=== PATIENT | male | born 1955 | race African-American/Black ===

== ENCOUNTER 2019-05-15 14:08 | Emergency (ER) | payer OTHER, SELFPAY ==
--- NOTE | ~2019-05-15 | XR_ITS ---
EXAMINATION: XR foot LT min 3V DATE: 05/15/2019 14:38 INDICATION: Left foot pain. TECHNIQUE: 4 views of left foot were obtained. COMPARISON: None. FINDINGS: There is mild hallux valgus. No fracture. There is mild osteoarthritis of first metatarsoph alangeal joint and some of the interphalangeal joints and midfoot joints. There are enthesophytes at the posterior and plantar aspects of calcaneal tuberosity. IMPRESSION: 1. Mild hallux valgus. 2. Mild polyarticular osteoarthritis. Reviewed, dictated and finalized at location [facility]. 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
[2019-05-15 14:16] VITALS: BP 135/73; PULSE 75; RESP 16; TEMP 36.5; O2SAT 98
--- NOTE | 2019-05-15 14:50 | ED.GENADULT ---
HPI - General Adult General Chief complaint: Extremity Injury, Lower Stated complaint: lt foot pain Time Seen by Provider: 05/15/19 14:51 Source: patient and RN notes reviewed Mode of arrival: ambulatory Limitations: no limitations History of Present Illness HPI narrative: 63-year-old male presents with concern for left lateral foot pain for several months. Reports pain is been worsening. Reports he has a plantar wart under the fifth metatarsal where the pain is, his doctor tried to freeze it off but it did not work. Patient is concerned for fracture, however denies injury, trauma. MD complaint: Left foot pain Related Data Home Medications Medication Instructions Recorded Confirmed testosterone cypionate mg 05/15/19 Allergies Allergy/AdvReac Type Severity Reaction Status Date / Time No Known Allergies Allergy Unverified 03/14/18 15:39 Review of Systems Review of Systems: Narrative: CONSTITUTIONAL: Denies malaise, chills, sweats, or fever. CARDIOVASCULAR: Denies chest pain, palpitations, or edema. RESPIRATORY: Denies cough or dyspnea. SKIN: Denies rash or itching. Reports left plantar wart MUSCULOSKELETAL: Reports left lateral plantar foot pain NEUROLOGIC: Denies numbness, weakness. All systems reviewed & are unremarkable except as noted in HPI and below PMFSH Comments At time of signature, agree with nursing past medical, surgical, social and family history. There is no relevant family history pertinent to the presenting complaint Exam Narrative: Exam Narrative: GENERAL: Well-appearing, well-nourished, and in no acute distress. HEAD: Normocephalic, atraumatic. EYES: PERRLA, conjunctivae clear NECK: Supple. CHEST: Clear to auscultation. No respiratory distress. HEART: Regular rate and rhythm. No murmur heard. Normal peripheral pulses. EXTREMITIES: Left foot, digits of left foot normal strength and sensation, no edema, normal range of motion. 5/5 strength with digit and ankle flexion and extension. Normal sensation with sensitivity to light touch and pain. No open wounds, no skin tenting, no devitalized tissue or atrophy, no trophic changes, no ecchymosis, no obvious deformity, alignment normal, no point tenderness, nearby joints and structures intact. Distal pulses palpable and equal bilaterally, skin warm, dry, pink. Capillary refill less than 3 seconds. SKIN: Warm, dry, no rash. Plantar wart approximately 0.75cm in diameter and 0.4cm protruding from the foot noted to the plantar aspect of the left foot beneath the fifth metatarsal. NEURO: Alert and oriented x3. PSYCH: Normal mood and affect Course Course Emergency Course: Patient is aware of diagnosis, understands and agrees to treatment plan. Anticipatory guidance given. Patient agrees to follow-up as directed and is aware of reasons to seek care at the emergency department. Portions of this record may have been created with voice recognition software Vital Signs Vital signs: Vital Signs Temperature 97.7 F 05/15/19 14:16 Pulse Rate 75 05/15/19 14:16 Respiratory Rate 16 05/15/19 14:16 Blood Pressure 135/73 05/15/19 14:16 Pulse Oximetry 98 05/15/19 14:16 Temperature 97.7 F 05/15/19 14:16 Pulse Rate 75 05/15/19 14:16 Respiratory Rate 16 05/15/19 14:16 Blood Pressure 135/73 05/15/19 14:16 Pulse Oximetry 98 05/15/19 14:16 Reviewed. Pt has been instructed to follow up with his primary care provider within the next week regarding his elevated blood pressure today. Medical Decision Making MDM Narrative Medical decision making narrative: Exam findings and imaging show no acute concerns or changes; patient is non-toxic appearing and is in no distress. Patient is appropriate for outpatient treatment and follow-up. Differential Diagnosis Differential Diagnosis: Stress fracture, Osborne's neuroma, plantar fasciitis, tendinitis, plantar wart Vital Signs Vital Signs: Vital Signs Temperature 97.7 F 05/15/19 14:16 Pulse Rate
== END 2019-05-15 15:09 | disposition home or self-care (01) ==
PROVIDERS: Emergency Provider Nurse Practitioner; PCP Family Medicine
DX: B07.0 Plantar wart (principal)
CPT/HCPCS: 73630; 99213; G0463

== ENCOUNTER 2019-12-14 17:05 | Emergency (ER) | payer OTHER, SELFPAY ==
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
[2019-12-14 17:27] VITALS: BP 136/66; PULSE 70; RESP 16; TEMP 36.8; O2SAT 96
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
[2019-12-14] MEDS: KETOROLAC (*BKC) 60 MG/2 ML VIAL IM (19:53)
[2019-12-14 20:34] VITALS: BP 136/65; PULSE 70; RESP 16; TEMP 36.4; O2SAT 96
== END 2019-12-14 20:35 | disposition home or self-care (01) ==
PROVIDERS: Emergency Provider Emergency Medicine; PCP Family Medicine
DX: S16.1XXA Strain of muscle, fascia and tendon at neck level, initial encounter (principal); Z87.891 Personal history of nicotine dependence; M48.12 Ankylosing hyperostosis [Forestier], cervical region; V49.40XA Driver injured in collision with unspecified motor vehicles in traffic accident, initial encounter
CPT/HCPCS: 72125; 96372; 99284; J1885

== ENCOUNTER 2020-08-08 13:56 | Inpatient (IN) | payer OTHER, SELFPAY ==
[2020-08-08] VITALS (12 sets, daily range): BP systolic 123–151; BP diastolic 68–97; PULSE 68–90; RESP 14–24; TEMP 35.6–37.3; O2SAT 95–100; BMI 44.2
--- NOTE | ~2020-08-08 | XR_ITS ---
XR chest 1V portable 08/08/2020 15:01 Indication: Left-sided chest pain Procedure: AP portable chest Comparison: 04/15/2017 Findings: Heart size normal. Right basilar atelectasis. No focal pneumonia, edema, pleural effusion o r pneumothorax. No acute osseous abnormality. Impression: 1: Right basilar atelectasis. Reviewed, dictated and finalized at location B. Impression: 1: Right basilar atelectasis.
--- NOTE | 2020-08-08 14:45 | ECG_ITS ---
Measurements Intervals [place] Rate: 93 P: 60 MS: 127 QRS: 51 QRSD: 81 T: 53 QT: 321 QTc: 400 Interpretive Statements SINUS RHYTHM NORMAL ECG Electronically Signed On 08-08-2020 15:00:03 CDT by Michael Macias D.O.
[2020-08-08] MEDS: ASPIRIN 81 MG CHEWABLE TABLET 324 MG PO (14:53)
[2020-08-08] MEDS: MORPHINE SULFATE (*CRX) 4 MG/ML INJ IV PUSH (14:54)
[2020-08-08] MEDS: ONDANSETRON INJ 4 MG/2 ML VIAL IV PUSH (14:54)
[2020-08-08] MEDS: NITROGLYCERIN OINTMENT 1 INCH DOSE TRANSDERM ×2 (14:56→22:20)
[2020-08-08 15:05] LABS: Basophils Absolute Auto 0.1 K/mm3 (0.0-0.1); Basophils Percent Auto 0.5 % (0.2-1.2); Eosinophils Absolute Auto 0.1 K/mm3 (0-0.3); Hematocrit 55.5 % (42.0-52.0); Hemoglobin 18.3 g/dL (14.0-18.0); Immature Granulocyte Absolute 0.05 K/mm3 (0.00-0.031); Immature Granulocyte Percent A 0.5 % (0-0.5); Lymphocytes Absolute Auto 2.12 K/mm3 (0.9-3.2); Lymphocytes Percent Auto 21.7 % (18.3-44.2); Mean Corpuscular Hemoglobin 28.6 pg (26-34); Mean Corpuscular Volume 86.9 fl (80-100); Mean Platelet Volume 9.1 fl (7.4-10.4); Monocytes Absolute Auto 0.7 K/mm3 (0.1-0.6); Monocytes Percent Auto 7.4 % (2.6-8.5); Neutrophils Absolute Auto 6.7 K/mm3 (1.3-6.7); Neutrophils Percent Auto 68.9 % (45.5-73.1); Platelet Count Result 241 k/mm3 (150-375); Red Blood Count 6.39 M/mm3 (4.6-6.20); Red Cell Distribution Width 17.3 % (11.5-14.5); White Blood Count 9.8 K/mm3 (4.5-10.0)
[2020-08-08 15:19] LABS: Prothrombin Time 13.7 Seconds (11.1-14.7)
[2020-08-08 15:20] LABS: Partial Thromboplastin Time 30.6 SECONDS (22.3-36.8)
[2020-08-08 15:23] LABS: D Dimer 0.47 ug/mL (<0.48)
[2020-08-08 15:24] LABS: Alanine Aminotransferase 42 U/L (4-50); Albumin Level 4.1 g/dL (3.5-5.1); Alkaline Phosphatase 68 U/L (38-126); Anion Gap 7 mmol/L (8-16); Aspartate Amino Transferase 45 U/L (17-59); Bilirubin,Total 0.9 mg/dL (0.2-1.3); Blood Urea Nitrogen 15 mg/dL (9-20); Calcium 9.1 mg/dL (8.4-10.2); Carbon Dioxide 27 mmol/L (22-30); Chloride 104 mmol/L (98-107); Estimated CRCL calculation 77 ml/min; Estimated Glomerular Filt Rate > 60; Glucose 115 mg/dL (75-110); Potassium 4.4 mmol/L (3.4-5.0); Sodium 138 mmol/L (137-145)
[2020-08-08] MEDS: METOPROLOL TARTRATE INJ 5 MG/5 ML VIAL IV PUSH ×3 (15:28→16:03)
[2020-08-08 15:36] LABS: Troponin I 0.013 ng/mL (0.000-0.034)
--- NOTE | 2020-08-08 15:42 | ED.CHESTPAIN ---
HPI - Chest Pain General Chief Complaint: Chest Pain Stated Complaint: CP Time Seen by Provider: 08/08/20 14:41 Source: patient, EMS and RN notes reviewed Limitations: no limitations History of Present Illness HPI narrative: Patient is 64 years old -[place] male came to the emergency room by ambulance with retrosternal chest pain that started prior to arrival while mowing the grass. 10 out of 10, tightness, radiating to left upper extremity associated with funny breathing. currently 5 out of 10. Patient denies any fever, chills, nausea, vomiting, back pain or abdominal pain. Patient does not take medicine at home,, patient does not smoke, drinks at least once a week, does not use marijuana, positive family history of coronary artery disease. Patient had last COVID-19 vaccination 2 weeks ago. Related Data Home Medications Medication Instructions Recorded Confirmed testosterone cypionate mg MONTHLY 05/15/19 Allergies Allergy/AdvReac Type Severity Reaction Status Date / Time No Known Allergies Allergy Verified 12/14/19 17:32 Review of Systems Review of Systems: Narrative: CONSTITUTIONAL: Denies fever, chills, or sweats. EYES: Denies visual changes, redness, or discharge. ENT: Denies rhinorrhea, congestion, sore throat, or otalgia. CARDIOVASCULAR: Denies chest pain, palpitations, or edema. RESPIRATORY: Denies cough or dyspnea. GASTROINTESTINAL: Denies abdominal pain, nausea, vomiting, or diarrhea. GENITOURINARY: Denies dysuria or hematuria. SKIN: Denies rash or itching. MUSCULOSKELETAL: Denies back pain, joint pain, or myalgia. NEUROLOGIC: Denies headache, numbness, or weakness. PSYCHIATRIC: Denies anxiety or depression. PMFSH Past Medical History Medical History No active medical problems Social History Social History Smoking status: Former smoker Gender identity (if verbalized by the patient): Male Exam Narrative: Exam Narrative: General appearance: Well-developed, well-nourished Skin: Normal color Head: Normocephalic, nontraumatic Eyes: Clear conjunctiva ENT: Oropharynx normal, ears normal, nose normal Neck: Supple, nontender Chest and respiratory: Airway patent, no respiratory distress, no accessory muscle use Heart: Regular rate/rhythm Abdomen: Soft, nontender, no organomegaly, quiet bowel sounds Vascular: Normal peripheral pulses, normal capillary refill. 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 My differential diagnosis as below. Labs, chest x-ray, EKG, aspirin, nitro glycerin, Lopressor ordered. Further plan to follow Differential Diagnosis Differential diagnosis: Likely pneumothorax, unstable angina pectoris, atypical chest pain, costochondritis and chest pain Lab Data Result diagrams: 08/08/20 15:00 08/08/20 15:00 Labs: Lab Results 08/08/20 08/08/20 08/08/20 Range/Units 15:00 15:00 15:00 WBC
--- NOTE | 2020-08-08 17:39 | ADMGEN ---
This patient, Benigno Nicolas, was admitted to IMU Room 205-02. Patient/family oriented to hospital policies and general routines including ID bracelet, bed and alarms, visiting hours, pain management, procedures, bathroom and other care routines, personal items, smoking policy, room service/diet, and visiting hours. Information on how to activate the Rapid Response Team has been discussed. Patient/Family are encouraged to report perceived risks to care and to ask questions if they do not understand what they are told or what they should do.
[2020-08-08 18:44] LABS: Troponin I 0.669 ng/mL (0.000-0.034)
[2020-08-08] MEDS: ENOXAPARIN 120 MG/0.8 ML SYRINGE SUB-Q (20:05)
[2020-08-09] VITALS (15 sets, daily range): BP systolic 117–136; BP diastolic 60–74; PULSE 59–80; RESP 15–18; TEMP 36.1–36.6; O2SAT 96–98
--- NOTE | 2020-08-09 | ECHO_ITS ---
Patient Info Name: Benigno Nicolas Age: 64 years : 1955 Gender: Male Ht: 69 in Wt: 294 lbs BSA: 2.61 m2 HR: 64 bpm BP: 130 / 74 mmHg Technical Quality: Fair Exam Date: 08/09/2020 10:52 AM Exam Location: [facility] Pulmonary Exam Room: [facility] Patient Status: Inpatient Admit Date: 08/08/2020 Staff Ordering Physician: Luca Mendoza MD Social Worker Masters: Nichelle Bland RDCS Attending Provider: Luca Mnedoza MD Exam Type: CA echo doppler color flow Study Info Indications - NSTEMI R07.89 - Other chest pain Complete two-dimensional, color flow and Doppler transthoracic echocardiogram is performed. Summary 1. Complete two-dimensional, color flow and Doppler transthoracic echocardiogram is performed. 2. Left ventricular chamber dimension is normal. 3. Left ventricular wall thickness is borderline increased. 4. The mitral valve has thickened leaflets. 5. mild thickening of the aortic valve leaflets. 6. Grade II diastolic dysfunction of the left ventricle (pseudonormal filling pattern). 7. Left ventricular systolic function is normal with an estimated ejection fraction of 5560.0 %. Left Ventricle Left ventricular chamber dimension is normal. Left ventricular wall thickness is borderline increased. Left ventricular systolic function is normal with an estimated ejection fraction of 5560.0 %. Grade II diastolic dysfunction of the left ventricle (pseudonormal filling pattern). Right Ventricle Right ventricle Empty are normal. Left Atria Left atrial chamber dimension is normal. Right Atria Right atrial chamber dimension is normal. Aortic Valve The aortic valve is trileaflet. mild thickening of the aortic valve leaflets. Pulmonic Valve Pulmonary valve is not well visualized. Mitral Valve The mitral valve has thickened leaflets. Tricuspid Valve The tricuspid valve is structurally and functionally normal by two-dimensional, color flow Doppler and Doppler interrogation. Pericardium/Pleural Pericardium is normal in appearance with no evidence for significant pericardial effusion. Left Ventricular Outflow Tract Name Value Normal LVOT 2D LVOT Diameter 2.1 cm LVOT Doppler LVOT Peak Gradient 5 mmHg LVOT Mean Gradient 3 mmHg LVOT VTI 25 cm LVOT VTI/AV VTI Ratio 1.0 LVOT Stroke Volume 84 ml LVOT CO 17.4 l/min LVOT CI 6.7 l/min/m2 Pulmonic Valve Name Value Normal PV Doppler PV Peak Gradient 3 mmHg Mitral Valve Name Value Normal MV D
[2020-08-09] MEDS: NITROGLYCERIN OINTMENT 1 INCH DOSE TRANSDERM ×3 (06:39→22:01)
[2020-08-09 08:58] LABS: Cholesterol 181 mg/dL (0-200); HDL Direct 47 mg/dL; Triglycerides 95 mg/dL (<150)
[2020-08-09 09:10] LABS: LDL Cholesterol Direct 114 mg/dL
[2020-08-09] MEDS: ASPIRIN 81 MG CHEWABLE TABLET PO (09:11)
[2020-08-09] MEDS: ENOXAPARIN 120 MG/0.8 ML SYRINGE SUB-Q ×2 (09:12→20:20)
--- NOTE | 2020-08-09 10:07 | PM.CNCAR ---
Assessment and Plan Assessment and plan (1) Chest pain: Qualifiers: Chest pain type: unspecified Qualified Code(s): R07.9 - Chest pain, unspecified Code(s): R07.9 - Chest pain, unspecified Status: Acute Assessment and Plan: Pt had chest discomfort related to physical activity. Now asymptomatic No acute EKG changes Troponin elevated c/w NSTEMI. will arrange for ECHO to evaluate LV function and r/o structural heart disease. Cont Heparin, ASA and statin. Pt will benefit from cath to evaluate coronary anatomy. Procedure will be be scheduled on Mon with Dr. Mendoza. Monitor on telemetry. (2) HTN (hypertension): Code(s): I10 - Essential (primary) hypertension Status: Acute Assessment and Plan: initially BP elevated now well controlled cont meds Thank you for consult. Yahir farrar. History of Present Illness History of Present Illness Consult date/time: 08/09/20 Mr. Nicolas is a pleasant 64 y/o AAM with PMH of HTN who presented to ER of [facility] due to chest discomfort. According to pt he worked yesterday at his yard and was cutting grass. Aftrer few hours of work he experienced chest discomfort radiating to arm, burning type. He stopped work and checked his BP which was high , Decided to relax and since he still was not feeling well he [id number] to present to hospital. Pt received med in ER and his symptoms resolcved. Remains asymptomatic since then. Pt was admitted to telemetry floor. Pt states taht he never had cardiac problems before, No previous cardiac evaluation. Patient denies any fever, chills, nausea, vomiting, back pain or abdominal pain. Patient does not smoke, drinks at least once a week. Patient had last COVID-19 vaccination 2 weeks ago. Pt was seen and examined, chart was reviewed. Reason For Visit: chest pain Review of Systems Review of Systems: All systems reviewed & are unremarkable except as noted in HPI and below Constitutional: Constitutional: Reports as per HPI Eyes: Eyes: Reports as per HPI ENT: Reports system reviewed and no additional complaints, except as documented and Reports as per HPI Cardiovascular: Cardiovascular: Reports as per HPI Respiratory: Respiratory: Reports as per HPI Gastrointestinal: Gastrointestinal: Reports as per HPI Genitourinary: Genitourinary: Reports as per HPI Musculoskeletal: Musculoskeletal: Reports as per HPI PMF Past Medical History Medical History No active medical problems Family History Family History (Updated 08/08/20 @ 17:46 by Dereck Reis RN) Mother Diabetes mellitus Hypertension Social History Social History Smoking status: Never smoker Alcohol intake: current Drinks per week: 1 Substance use: never Substance use type: does not use Gender identity (if verbalized by the patient): Male Spiritual care concerns: No Meds Home Medications and Allergies Home Medications Medication Instructions Recorded Confirmed Type testosterone cypionate 200 mg IM MONTHLY 05/15/19 08/08/20 History Allergies Allergy/AdvReac Type Severity Reaction Status Date / Time No Known Allergies Allergy Verified 12/14/19 17:32 Vital Signs Vital Signs - 24 hr 08/08/20 14:02 08/08/20 15:28 08/08/20 15:40 Temperature 37.3 C Pulse Rate 90 90 79 Respiratory Rate 14 Blood Pressure 146/86 H Pulse Oximetry 95 08/08/20 16:03 08/08/20 16:21 08/08/20 17:25 Temperature Pulse Rate 70 69 74 Respiratory Rate 18 Blood Pressure 141/97 H Pulse Oximetry 100 08/08/20 17:39 08/08/20 17:42 08/08/20 18:00 Temperature 35.6 C L 35.6 C L Pulse Rate 71 71 79 Respiratory Rate 24 H 24 H Blood Pressure 123/68 123/68 Pulse Oximetry 97 97 08/08/20 19:31 08/08/20 20:00 08/08/20 22:00 Temperature 35.6 C L Pulse Rate 68 71 72 Respiratory Rate
[2020-08-09] MEDS: METOPROLOL TARTRATE 12.5 MG TABLET PO ×2 (12:01→20:20)
[2020-08-09] MEDS: polyethylene glycoL 3350 17 GM POWD.PACK PO (18:26)
[2020-08-09] MEDS: ATORVASTATIN 40 MG TABLET 80 MG PO (20:20)
[2020-08-10] VITALS (19 sets, daily range): BP systolic 101–122; BP diastolic 55–74; PULSE 58–111; RESP 12–22; TEMP 36.1–36.7; O2SAT 93–99
[2020-08-10] MEDS: NITROGLYCERIN OINTMENT 1 INCH DOSE TRANSDERM ×3 (06:03→20:22)
[2020-08-10] MEDS: ASPIRIN 81 MG CHEWABLE TABLET PO (08:23)
[2020-08-10] MEDS: ENOXAPARIN 120 MG/0.8 ML SYRINGE SUB-Q ×2 (08:24→20:21)
[2020-08-10] MEDS: METOPROLOL TARTRATE 12.5 MG TABLET PO ×2 (08:24→20:21)
--- NOTE | 2020-08-10 09:30 | PM.PNCARD ---
Progress Note: A&P Assessment and Plan (1) HTN (hypertension): Code(s): I10 - Essential (primary) hypertension Status: Acute Assessment and Plan: initially BP elevated now well controlled cont meds (2) Chest pain: Qualifiers: Chest pain type: unspecified Qualified Code(s): R07.9 - Chest pain, unspecified Code(s): R07.9 - Chest pain, unspecified Status: Acute Assessment and Plan: CP resolved Initially pt had chest discomfort related to physical activity. No acute EKG changes Troponin elevated c/w NSTEMI. ECHO showed normal LV systolic function (LVEF 55-60%) Cont Heparin, ASA and statin. Pt will benefit from cath to evaluate coronary anatomy. Procedure will be be scheduled in AM with Dr. Mendoza. Monitor on telemetry. Subjective Date/time seen: 08/10/20 Pt feels good today. Denies any CP, SOB or palpitations. Pt was seen and examined, chart was reviewed, d/w pt's nurse. Review of Systems Review of Systems: All systems reviewed & are unremarkable except as noted in HPI and below Constitutional: Constitutional: Reports as per HPI Eyes: Eyes: Reports as per HPI ENT: Reports system reviewed and no additional complaints, except as documented and Reports as per HPI Cardiovascular: Cardiovascular: Reports as per HPI Respiratory: Respiratory: Reports as per HPI Gastrointestinal: Gastrointestinal: Reports as per HPI Genitourinary: Genitourinary: Reports as per HPI Musculoskeletal: Musculoskeletal: Reports as per HPI Exam Const: General: no acute distress Nutritional Appearance: well nourished Orientation/consciousness: patient oriented x3 HENMT: Head: normal to inspection and atraumatic Ears: hearing grossly normal bilaterally Face and sinus: normal facial exam Eyes: General: appearance normal, both eyes and all related structures Pupils: Equal, round and reactive pupils present EOM: EOMs intact bilaterally Neck: Neck: supple Chest: Chest palpation & inspection: normal inspection of the chest Resp: Effort & Inspection: normal respiratory effort and no respiratory distress Auscultation: clear to auscultation bilaterally Cardio: Jugular venous distension: no JVD Rate: regular rate Heart sounds: S1 normal heart sound present, S2 normal heart sound present and no murmurs Peripheral pulses: Peripheral pulses 2+ throughout GI: GI Palp: No abdominal tenderness Auscultation: normal bowel sounds Skin: General skin exam: normal color Neuro: General: patient oriented x3 Cranial nerves: Yes Equal, round and reactive pupils present Extrem: General: normal to inspection and no clubbing, cyanosis or edema Objective Data Vital Signs Vital Signs: Vital Signs - 24 hr 08/09/20 10:00 08/09/20 12:00 08/09/20 12:01 Temperature 36.6 C Pulse Rate 73 71 76 Respiratory Rate 16 Blood Pressure 136/64 Pulse Oximetry 97 08/09/20 14:00 08/09/20 16:00 08/09/20 18:00 Temperature 36.1 C L Pulse Rate 64 65 80 Respiratory Rate 15 Blood Pressure 117/64 Pulse Oximetry 97 08/09/20 19:48 08/09/20 20:00 08/09/20 20:20 Temperature 36.2 C L Pulse Rate 72 72 67 Respiratory Rate 16 16 Blood Pressure 123/64 Pulse Oximetry 97 97 08/09/20 22:00 08/10/20 00:00 08/10/20 02:00 Temperature 36.1 C L Pulse Rate 66 61 58 L Respiratory Rate 16 Blood Pressure 104/59 L Pulse Oximetry 99 08/10/20 03:38 08/10/20 04:00 08/10/20 04:41 Temperature 36.6 C Pulse Rate 111 H 58 L Respiratory Rate 22 H Blood Pressure 101/57 L Pulse Oximetry 93 93 93 08/10/20 05:57 08/10/20 08:00 08/10/20 08:24 Temperature 36.6 C Pulse Rate 58 L 64 65 Respiratory Rate 18 Blood Pressure 112/66 Pulse Oximetry 99 Intake/Output Intake/Output: Intake & Output 08/07/20 08/08/20 08/09/20 08/10/20 23:59 23:59 23:59 23:59 Intake Total 240 0 550 Output Total 300 2090 500 Balance -60 -50 50 Meds/Results Medications
[2020-08-10] MEDS: ATORVASTATIN 40 MG TABLET 80 MG PO (20:21)
[2020-08-10] MEDS: polyethylene glycoL 3350 17 GM POWD.PACK PO (20:21)
[2020-08-11] VITALS (15 sets, daily range): BP systolic 103–119; BP diastolic 44–86; PULSE 55–76; RESP 12–24; TEMP 35.3–36.6; O2SAT 94–100
[2020-08-11 05:10] LABS: Anion Gap 4 mmol/L (8-16); Blood Urea Nitrogen 17 mg/dL (9-20); Calcium 8.8 mg/dL (8.4-10.2); Carbon Dioxide 29 mmol/L (22-30); Chloride 101 mmol/L (98-107); Estimated CRCL calculation 66 ml/min; Estimated Glomerular Filt Rate > 60; Glucose 120 mg/dL (75-110); Potassium 4.3 mmol/L (3.4-5.0); Sodium 134 mmol/L (137-145)
[2020-08-11] MEDS: NITROGLYCERIN OINTMENT 1 INCH DOSE TRANSDERM (06:06)
[2020-08-11] MEDS: ASPIRIN 81 MG CHEWABLE TABLET PO (08:00)
[2020-08-11] MEDS: SODIUM CHLORIDE 0.9% IV 500 ML 75 ML IV CONT (08:00)
[2020-08-11] MEDS: METOPROLOL TARTRATE 12.5 MG TABLET PO (08:02)
--- NOTE | 2020-08-11 08:06 | PC.NURSE ---
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
--- NOTE | 2020-08-11 08:10 | WPDMODSED ---
Moderate Sedation Note-Pt Data Patient Data Allergies Allergy/AdvReac Type Severity Reaction Status Date / Time No Known Allergies Allergy Verified 12/14/19 17:32 Home Medications Medication Instructions Recorded Confirmed Type testosterone cypionate 200 mg IM MONTHLY 05/15/19 08/08/20 History Current Medications: Active Medications Aspirin (Aspirin 81 Mg Chewable Tablet) 81 mg PO DAILY@0800 [facility] Last Admin: 08/11/20 08:00 Dose: 81 mg Documented by: Atorvastatin Calcium (Atorvastatin 40 Mg Tablet) 80 mg PO HS [facility] Last Admin: 08/10/20 20:21 Dose: 80 mg Documented by: Enoxaparin Sodium (Enoxaparin 120 Mg/0.8 Ml Syringe) 120 mg SUB-Q Q12H [facility] Last Admin: 08/11/20 06:29 Dose: Not Given Documented by: Sodium Chloride (Normal Saline Iv) 500 mls @ 75 mls/hr IV CONT .Q6H40M [facility] Last Infusion: 08/11/20 08:06 Dose: 0 mls/hr Documented by: Metoprolol Tartrate (Metoprolol Tartrate 12.5 Mg Tablet) 12.5 mg PO Q12HR [facility] Last Admin: 08/11/20 08:02 Dose: 12.5 mg Documented by: Nitroglycerin (Nitroglycerin Ointment 1 Inch Dose) 1 inch TRANSDERM Q8HR [facility] Last Admin: 08/11/20 06:06 Dose: 1 inch Documented by: Ondansetron HCl (Ondansetron Inj 4 Mg/2 Ml Vial) 4 mg IV PUSH Q4H PRN PRN Reason: Nausea Polyethylene Glycol (Polyethylene Glycol 3350 17 Gm Powd.Pack) 17 gm PO QPM [facility] Last Admin: 08/10/20 20:21 Dose: 17 gm Documented by: Sedation/Anesthesia: No previous sedation/anesthesia problems (including family history). PMF Past Medical History Medical History No active medical problems Family History Family History (Updated 08/08/20 @ 17:46 by Dereck Reis RN) Mother Diabetes mellitus Hypertension Social History Social History Smoking status: Never smoker Alcohol intake: current Drinks per week: 1 Substance use: never Substance use type: does not use Gender identity (if verbalized by the patient): Male Spiritual care concerns: No Mod Sed Physical Exam Physical Exam Pre Procedural Exam: Normal: Appearance, Eyes, Ears, Nose, Neck, Throat, Airway, Lungs, Heart Size, Heart Rate, Heart Rhythm, Neuro Exam, Abdomen, Liver, Kidneys, Spleen, Breasts, Genitalia, Extremities and Skin Hours since solid foods: 8 Hours since liquid intake: 8 Internal Medicine - PN: Obj Da Vital Signs Vital Signs: Vital Signs - 24 hr 08/10/20 08:24 08/10/20 10:00 08/10/20 12:00 Temperature 36.7 C Pulse Rate 65 66 64 Respiratory Rate 12 Blood Pressure 118/55 L Pulse Oximetry 99 08/10/20 14:00 08/10/20 15:34 08/10/20 16:00 Temperature 36.7 C Pulse Rate 67 73 70 Respiratory Rate 18 14 Blood Pressure 118/60 Pulse Oximetry 93 98 08/10/20 18:00 08/10/20 20:00 08/10/20 20:21 Temperature 36.2 C L Pulse Rate 75 68 84 Respiratory Rate 20 Blood Pressure 111/62 Pulse Oximetry 99 08/10/20 21:26 08/10/20 23:15 08/10/20 23:29 Temperature 36.7 C Pulse Rate 67 62 62 Respiratory Rate 16 16 Blood Pressure 122/74 Pulse Oximetry 97 97 08/11/20 02:00 08/11/20 04:00 08/11/20 06:00 Temperature 36.6 C Pulse Rate 62 61 68 Respiratory Rate 22 H Blood Pressure 106/64 Pulse Oximetry 99 08/11/20 08:02 Temperature Pulse Rate 76 Respiratory Rate Blood Pressure Pulse Oximetry Intake/Output Intake/Output: Intake & Output 08/08/20 08/09/20 08/10/20 08/11/20 23:59 23:59 23:59 23:59 Intake Total 240 2040 1820 Output Total 300 2090 500 1500 Balance -60 -50 1320 -1500 Meds/Results Medications: Active Medications Generic Name Dose Route Start Last Admin Trade Name Freq PRN Reason Stop Dose Admin Aspirin 81 mg 08/09/20 08:00 08/11/20 08:00 Aspirin 81 Mg Chewable Tablet PO 81 mg DAILY@0800 [facility] Administration Atorvastatin Calcium 80 mg 08/09/20 21:00 08/10/20 20:21 Atorvastatin 40 Mg Tablet PO 80 mg HS
--- NOTE | 2020-08-11 08:47 | PM.PNCARD ---
Progress Note: A&P Assessment and Plan (1) Non-ST elevation myocardial infarction (NSTEMI): Code(s): I21.4 - Non-ST elevation (NSTEMI) myocardial infarction Status: Acute Assessment and Plan: Now stable, he underwent cardiac catheterization, revealing moderate distal LAD disease, and 1st and 2nd diagonal branches with 90% stenosis but they both are very small vessels. He would benefit from maximum medical treatment and risk factor modification no need for any intervention. he will be discharged on aspirin, Brilinta, Lipitor, and metoprolol (2) HTN (hypertension): Code(s): I10 - Essential (primary) hypertension Status: Acute (3) Chest pain: Qualifiers: Chest pain type: unspecified Qualified Code(s): R07.9 - Chest pain, unspecified Code(s): R07.9 - Chest pain, unspecified Status: Acute Assessment and Plan: with non ST elevation myocardial infarction, now nor more recurrence of chest pain, he feels well, cardiac catheterization showed moderate disease in the LAD, and 2 small diagonal branches with disease, medical treatment for now (4) Dyslipidemia: Code(s): E78.5 - Hyperlipidemia, unspecified Status: Acute Assessment and Plan: started on Lipitor, will continue with that Subjective Date/time seen: 08/11/20 08:47 He is feeling well today, no more chest pain, he underwent cardiac catheterization today revealing 2 small diagonal branches with 90% disease but they were too small for any intervention, has normal left ventricular systolic function, thought to be good candidate for maximum medical treatment and risk factor modification no need for any intervention Review of Systems Review of Systems: All systems reviewed & are unremarkable except as noted in HPI and below Constitutional: Constitutional: Reports as per HPI Eyes: Eyes: Reports as per HPI ENT: Reports system reviewed and no additional complaints, except as documented and Reports as per HPI Cardiovascular: Cardiovascular: Reports as per HPI Respiratory: Respiratory: Reports as per HPI Gastrointestinal: Gastrointestinal: Reports as per HPI Genitourinary: Genitourinary: Reports as per HPI Musculoskeletal: Musculoskeletal: Reports as per HPI Exam Const: General: no acute distress, alert and awake; No acute distress Nutritional Appearance: well nourished Orientation/consciousness: patient oriented x3 HENMT: Head: normal to inspection and atraumatic Ears: hearing grossly normal bilaterally Face and sinus: normal facial exam Eyes: General: appearance normal, both eyes and all related structures Pupils: Equal, round and reactive pupils present EOM: EOMs intact bilaterally Neck: Neck: normal visual inspection, supple and no JVD Chest: Chest palpation & inspection: normal inspection of the chest Resp: Effort & Inspection: normal respiratory effort and no respiratory distress Auscultation: clear to auscultation bilaterally Cardio: Jugular venous distension: no JVD Rate: regular rate Heart sounds: S1 normal heart sound present, S2 normal heart sound present and no murmurs Peripheral pulses: Peripheral pulses 2+ throughout GI: Inspection: normal to inspection Auscultation: normal bowel sounds Skin: General skin exam: normal color Neuro: General: patient oriented x3 Cranial nerves: Yes Equal, round and reactive pupils present Extrem: General: normal to inspection and no clubbing, cyanosis or edema Objective Data Vital Signs Vital Signs: Vital Signs - 24 hr 08/10/20 10:00 08/10/20 12:00 08/10/20 14:00 Temperature 36.7 C Pulse Rate 66 64 67 Respiratory Rate 12 Blood Pressure 118/55 L Pulse Oximetry 99 08/10/20 15:34 08/10/20 16:00 08/10/20 18:00 Temperature 36.7 C Pulse Rate 73 70 75 Respiratory Rate 18 14 Blood Pressure 118/60 Pulse Oximetry 93 98 08/10/20 20:00 08/10/20 20:21 08/10/20 21:26 Temperature 36.2 C L Pulse Rate 68 84
--- NOTE | 2020-08-11 08:53 | WPDCARDPROC ---
Cardiac Cath Procedure Note Date of procedure:: 08/11/20 Performing physician:: Luca Mendoza MD Procedure: 1. Left heart catheterization, selective coronary angiogram. 2. Left ventricular angiogram. 3. Angio-Seal device for arterial hemostasis 4. Conscious sedation. Php Developer: Dr. Luca Mendoza Complications: None. Sedation: Conscious sedation, local anesthesia, using 1 mg of Versed said, 25 mcg of fentanyl, and using 1% lidocaine for local anesthesia. starting time is 8:25 a.m. ending time is 8:40 a.m. History: 64 years old gentleman with history of dyslipidemia hypertension, came to the hospital because of shortness of breath and chest pain. Initially troponin was negative but subsequent troponin showed significant elevation, he was started on Lovenox and medical treatment he became pain-free since, he underwent cardiac catheterization for definitive diagnosis of coronary disease Technique: After informed consent was obtained from patient, was brought to the labor contract analyst, put in the labor contract analyst table, prepped and draped in usual sterile fashion. Five [place] sheath was inserted into the right common femoral artery, through the sheath 5 [place] JL4 catheter inserted, advanced to the left coronary artery, left coronary artery angiogram was obtained. The catheter was exchanged over guidewire into a 5 [place] JR4 catheter, advanced to the right coronary artery, right coronary artery angiogram was obtained. The catheter then was exchanged over guidewire into this 5 [place] pigtail catheter, advanced to left ventricle, left ventricular angiogram was obtained. The catheter then was pulled, the sheath was pulled applying Angio-Seal device for arterial hemostasis. Patient tolerated the procedure no complication, taken from the labor contract analyst to his room in stable condition stable vital signs. Hemodynamics: aortic pressure 114/60 . LV pressure 113/04 with LVEDP of 16 mmHg Angiographic findings: Left main: Medium size artery no significant disease or stenosis. Lad medium size artery showed mid LAD 40% narrowing at the proximal portion, and mid to distal there is multiple lesions with 60% disease. There is a stenosis noted on the 1st diagonal branch which is very small but has 90% stenosis, and 2nd diagonal branch also is small and has 90% ostial stenosis Left circumflex artery, medium size artery, no significant disease or stenosis. RCA: Dominant vessel, showed mid RCA significant irregularity with a 40% disease. LV: Normal size left ventricle with normal left ventricular systolic function. Summary: Mild to moderate coronary artery disease, normal left ventricular systolic function, with lesions in the diagonal branches and mid to distal LAD, the diagonals are too small for intervention, and the distal LAD is moderate and does not warrant intervention. Recommendation: Maximum medical treatment. Risk factor modification
--- NOTE | 2020-08-11 09:03 | PM.DS ---
DS: Admitting Diagnosis Admitting Diagnosis Admitting Diagnosis: non ST-elevation myocardial infarction DS: Discharge Diagnosis Discharge Diagnosis (1) Non-ST elevation myocardial infarction (NSTEMI): Code(s): I21.4 - Non-ST elevation (NSTEMI) myocardial infarction Status: Acute Assessment and Plan: Now stable, he underwent cardiac catheterization, revealing moderate distal LAD disease, and 1st and 2nd diagonal branches with 90% stenosis but they both are very small vessels. He would benefit from maximum medical treatment and risk factor modification no need for any intervention. he will be discharged on aspirin, Brilinta, Lipitor, and metoprolol (2) HTN (hypertension): Code(s): I10 - Essential (primary) hypertension Status: Acute (3) Chest pain: Qualifiers: Chest pain type: unspecified Qualified Code(s): R07.9 - Chest pain, unspecified Code(s): R07.9 - Chest pain, unspecified Status: Acute Assessment and Plan: with non ST elevation myocardial infarction, now nor more recurrence of chest pain, he feels well, cardiac catheterization showed moderate disease in the LAD, and 2 small diagonal branches with disease, medical treatment for now (4) Dyslipidemia: Code(s): E78.5 - Hyperlipidemia, unspecified Status: Acute Assessment and Plan: started on Lipitor, will continue with that DS: Summary Hospital Course Hospital Course: He was admitted to the hospital became pain-free, after further stabilization he underwent cardiac catheterization revealing moderate disease in the LAD, he will be discharged home on the above medication, to have a follow-up with us in 1 week Time Spent with Patient Time attestation: Total time spent providing and/or coordinating discharge services: Exam Const: General: no acute distress, alert and awake; No acute distress Nutritional Appearance: well nourished Orientation/consciousness: patient oriented x3 HENMT: Head: normal to inspection and atraumatic Ears: hearing grossly normal bilaterally Face and sinus: normal facial exam Eyes: General: appearance normal, both eyes and all related structures Pupils: Equal, round and reactive pupils present EOM: EOMs intact bilaterally Neck: Neck: normal visual inspection, supple and no JVD Chest: Chest palpation & inspection: normal inspection of the chest Resp: Effort & Inspection: normal respiratory effort and no respiratory distress Auscultation: clear to auscultation bilaterally Cardio: Jugular venous distension: no JVD Rate: regular rate Heart sounds: S1 normal heart sound present, S2 normal heart sound present and no murmurs Peripheral pulses: Peripheral pulses 2+ throughout GI: Inspection: normal to inspection Auscultation: normal bowel sounds Skin: General skin exam: normal color Neuro: General: patient oriented x3 Cranial nerves: Yes Equal, round and reactive pupils present Extrem: General: normal to inspection and no clubbing, cyanosis or edema DS: Data Data Completed and Pending Labs on day of discharge: Labs from last 24 hours 08/11/20 04:26 Sodium 134 L Potassium 4.3 Chloride 101 Carbon Dioxide 29 Anion Gap 4 L BUN 17 Creatinine 1.40 H Estim Creat Clear Calc 66 Estimated GFR > 60 Glucose 120 H Calcium 8.8 Discharge Plan Discharge Attending physician on discharge: [employer] Consulting providers: [employer] Discharging Clinician: Luca Mendoza Patient Disposition: Home, Self-Care Activity: no straining Diet: heart healthy Patient Instructions: Antibiotic Form Stand Alone Forms: General Discharge Information Follow-up/Referrals: Luca Mendoza MD [Physician] - Discharge Medications: New aspirin [Children's Aspirin] 81 mg Tablet,Chewable 81 mg PO DAILY@0800 Qty: 100 RF: 0 atorvastatin 40 mg Tablet 80 mg PO HS Qty: 30 RF: 0 Brilinta 90 mg Tablet
[2020-08-11] MEDS: TICAGRELOR 90 MG TABLET PO (11:43)
== END 2020-08-11 14:52 | disposition home or self-care (01) | DRG 282 ==
LOC: ANHED 16:03 → ANHCPC 16:41 → ANHIMU 17:20
PROVIDERS: Internal Medicine Cardiovascular Disease; Admitting Provider Specialist; Emergency Provider Emergency Medicine; PCP Family Medicine; Visit Provider Specialist
PROC: 4A023N7 Measurement of Cardiac Sampling and Pressure, Left Heart, Percutaneous Approach (ICD-10-PCS; CPT 93452; principal; 2020-08-11 08:00)
PROC: 4A023N7 Measurement of Cardiac Sampling and Pressure, Left Heart, Percutaneous Approach (ICD-10-PCS; 2020-08-11 08:00)
DX: I21.4 Non-ST elevation (NSTEMI) myocardial infarction (principal); I25.10 Atherosclerotic heart disease of native coronary artery without angina pectoris; I10 Essential (primary) hypertension; E78.5 Hyperlipidemia, unspecified; Z79.899 Other long term (current) drug therapy
CPT/HCPCS: 36415; 71045; 80048; 80053; 80061; 84484; 85025; 85380; 85610; 85730; 93005; 93306; 93458; 96374; 96375; 99285; A9270; C1760; C1887; C1894; G0269; G0378; J1644; J1650; J2250; J2270; J2405; J3010; J7040

== ENCOUNTER 2020-10-10 10:10 | Emergency (ER) | payer OTHER, SELFPAY ==
[2020-10-10 10:15] VITALS: BP 128/65; PULSE 83; RESP 16; TEMP 36.4; O2SAT 98
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
== END 2020-10-10 10:38 | disposition home or self-care (01) ==
PROVIDERS: Emergency Provider Nurse Practitioner; PCP Family Medicine
DX: H00.011 Hordeolum externum right upper eyelid (principal); H10.31 Unspecified acute conjunctivitis, right eye; Z87.891 Personal history of nicotine dependence; E78.5 Hyperlipidemia, unspecified; I25.2 Old myocardial infarction
CPT/HCPCS: 99213; G0463

== ENCOUNTER 2020-12-10 18:00 | Outpatient (RCR) | payer OTHER, SELFPAY | END 2021-01-26 09:20 | disposition home or self-care (01) | LOC: ANHCPREHAB 18:00 | PROVIDERS: PCP Family Medicine; Visit Provider Specialist | DX: I25.2 Old myocardial infarction (principal) | CPT/HCPCS: 93798 ==

== ENCOUNTER 2021-03-16 01:34 | Day surgery (SDC) | payer OTHER, SELFPAY ==
[2021-02-26 14:29] VITALS: BMI 43.6
[2021-03-16 12:48] VITALS: BP 144/91; PULSE 91; RESP 18; TEMP 36.7; O2SAT 98; BMI 44.0
[2021-03-16] MEDS: LACTATED RINGERS 1,000 ML 150 ML IV CONT (13:04)
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
[2021-03-16 13:44] VITALS: BP 123/76; PULSE 89; RESP 17; O2SAT 97
[2021-03-16 13:54] VITALS: BP 116/79; PULSE 74; RESP 18; O2SAT 100
[2021-03-16 14:04] VITALS: BP 119/80; PULSE 75; RESP 20; O2SAT 100
--- NOTE | 2021-03-16 14:05 | ECG_ITS ---
Measurements Intervals [place] Rate: 69 P: 70 [place]: 123 QRS: 43 QRSD: 89 T: 7 QT: 366 QTc: 393 Interpretive Statements SINUS RHYTHM WITH MARKED SINUS ARRHYTHMIA MINIMAL Q WAVES- INFERIOR LEADS BORDERLINE ECG Electronically Signed On 03-16-2021 15:03:50 ELECTRICAL PROJECT ENGINEER by Michael Macias D.O.
[2021-03-16 14:14] VITALS: BP 132/76; PULSE 73; RESP 20; O2SAT 100
--- NOTE | 2021-03-16 14:51 | SUR.PHASEII ---
pt had a dysrhythmia that this nurse noticed and informed dr ahuja and he ordered an EKG. Dr. ahuja was not concerned with the EKG and asked for it to be sent to DR armas and pt was ok to go home. The fax machine was not working and this nurse wrote a note for the charge nurse to fax tomorrow morning. pt denies any pain, sob, or n/v.
== END 2021-03-16 14:45 | disposition home or self-care (01) ==
PROVIDERS: PCP Family Medicine; Visit Provider Internal Medicine Gastroenterology
PROC: 0DJD8ZZ Inspection of Lower Intestinal Tract, Via Natural or Artificial Opening Endoscopic (ICD-10-PCS; CPT 45378; principal; 2021-03-16 13:30)
DX: Z12.11 Encounter for screening for malignant neoplasm of colon (principal); K64.8 Other hemorrhoids; K57.30 Diverticulosis of large intestine without perforation or abscess without bleeding; Z86.010 Personal history of colon polyps; E78.5 Hyperlipidemia, unspecified; I25.2 Old myocardial infarction; Z87.891 Personal history of nicotine dependence; Z79.82 Long term (current) use of aspirin; E66.01 Morbid (severe) obesity due to excess calories; Z68.41 Body mass index [BMI] 40.0-44.9, adult
CPT/HCPCS: 45378; 93005; J2704; J7120

== ENCOUNTER 2021-03-16 12:44 | Outpatient (CLI) | payer OTHER, SELFPAY ==
[2021-03-16 13:46] LABS: Basophils Absolute Auto 0.1 K/mm3 (0.0-0.1); Basophils Percent Auto 0.6 % (0.2-1.2); Eosinophils Absolute Auto 0.2 K/mm3 (0-0.3); Hematocrit 53.9 % (42.0-52.0); Hemoglobin 18.5 g/dL (14.0-18.0); Immature Granulocyte Absolute 0.04 K/mm3 (0.00-0.031); Immature Granulocyte Percent A 0.4 % (0-0.5); Lymphocytes Percent Auto 29.8 % (18.3-44.2); Mean Corpuscular HGB Conc 34.3 g/dl (32-36); Mean Corpuscular Volume 87.5 fl (80-100); Mean Platelet Volume 9.1 fl (7.4-10.4); Monocytes Absolute Auto 0.9 K/mm3 (0.1-0.6); Monocytes Percent Auto 8.3 % (2.6-8.5); Neutrophils Absolute Auto 6.4 K/mm3 (1.3-6.7); Neutrophils Percent Auto 58.9 % (45.5-73.1); Platelet Count Result 276 k/mm3 (150-375); Red Blood Count 6.16 M/mm3 (4.6-6.20); Red Cell Distribution Width 15.5 % (11.5-14.5); White Blood Count 10.8 K/mm3 (4.5-10.0)
[2021-03-16 14:05] LABS: Alanine Aminotransferase 94 U/L (4-50); Alkaline Phosphatase 81 U/L (38-126); Anion Gap 6 mmol/L (8-16); Aspartate Amino Transferase 62 U/L (17-59); Blood Urea Nitrogen 13 mg/dL (9-20); Calcium 9.3 mg/dL (8.4-10.2); Carbon Dioxide 25 mmol/L (22-30); Chloride 101 mmol/L (98-107); Cholesterol 128 mg/dL (0-200); Estimated Glomerular Filt Rate > 60; Glucose 126 mg/dL (65-110); HDL Direct 45 mg/dL; Potassium 4.7 mmol/L (3.4-5.0); Sodium 132 mmol/L (137-145); Triglycerides 77 mg/dL (<150)
[2021-03-16 14:15] LABS: LDL Cholesterol Direct 70 mg/dL
[2021-03-16 14:27] LABS: Hemoglobin A1C 7.6 % (<5.7)
[2021-03-16 14:35] LABS: Prostate Specific Antigen 0.4 ng/mL (< OR = 4.0)
[2021-03-16 15:14] LABS: Free T4 Free Thyroxine 0.86 ng/mL (0.78-2.19); Vitamin D 25 Hydroxy 77.4 ng/mL
[2021-03-16 15:39] LABS: Creatinine Urine 323.3 mg/dL
[2021-03-16 15:44] LABS: MALB Creatinine Ratio 13.6 mg/g (0-30)
[2021-03-21 06:08] LABS: Testosterone Free 112.3 pg/mL (46.0-224.0)
== END 2021-03-16 12:45 | disposition home or self-care (01) ==
PROVIDERS: PCP Family Medicine; Visit Provider Family Medicine
DX: E55.9 Vitamin D deficiency, unspecified (principal); N40.0 Benign prostatic hyperplasia without lower urinary tract symptoms; M62.81 Muscle weakness (generalized); I10 Essential (primary) hypertension; E11.9 Type 2 diabetes mellitus without complications
CPT/HCPCS: 36415; 80053; 80061; 82043; 82306; 83036; 84153; 84402; 84439; 84443; 85025

== ENCOUNTER 2021-12-11 16:01 | Inpatient (IN) | payer OTHER, MEDICARE, SELFPAY ==
[2021-12-11] VITALS (29 sets, daily range): BP systolic 100–142; BP diastolic 65–90; PULSE 89–112; RESP 7–22; TEMP 36.4; O2SAT 85–100; BMI 42.0
--- NOTE | ~2021-12-11 | US_ITS ---
EXAMINATION: US abdomen limited DATE: 12/12/2021 07:54 INDICATION: Transaminitis TECHNIQUE: Multiple grayscale and Doppler ultrasound images of the abdomen were obtained. COMPARISON: CT dated 12/11/2021 FINDINGS: The region of the pancreas is obscured by gas in the stomach. Liver has normal echogenicity and conto ur, with a smooth surface. No liver lesion identified. No intrahepatic biliary duct dilation suspecte d. Portal venous flow was seen in the hepatopetal, normal direction and has normal Doppler waveform. The gallbladder is normal in appearance. There is no cholelithiasis. The common bile duct measures 6 mm, which is normal. Sonographic Wyatt sign was reported as negative by the laser machine operator. IMPRESSION: 1. Normal right upper quadrant ultrasound. Reviewed, dictated and finalized at location A.
--- NOTE | ~2021-12-11 | CT_ITS ---
EXAMINATION: CT abdomen pelvis w con DATE: 12/11/2021 18:19 INDICATION: Elbow pain, nausea and vomiting. TECHNIQUE: Computed tomography (CT) of the abdomen and pelvis was performed with 100 mL Omnipaque-350 intravenous contrast. Automated exposure control and iterative reconstruction technique were employe d. The dose-length product was 1416.70 mGy-cm. COMPARISON: None FINDINGS: Mild discoid atelectasis in the lingula and dependent right lower lobe. Associated inferior heart is normal. Atherosclerotic coronary artery calcific location. No pericardial or pleural effusion. Liver, gallbladder, spleen, pancreas and bilateral adrenal glands are normal. Bilateral renal cysts, the la rgest on the left measuring 2.8 cm. 2.5 cm complex cystic lesion in the right ovary with suggestion o f a thin internal septation with possible minimal enhancement along the septation consistent with a B osniak 2 lesion. There is moderate colonic diverticulosis with a sigmoid predominance. There is no a djacent inflammatory change to suggest diverticulitis. There is mild dilation of multiple loops of s mall bowel in the right abdomen measuring up to 4.5 cm maximal diameter. There is pseudofeces at the transition point along the anterolateral right abdominal wall where the bowel undergoes an abrupt 180 degree change in direction suggesting an adhesion. The more distal small bowel is decompressed. Post operative change of prior right hemicolectomy with ileocolic anastomosis in the anteromedial right up per quadrant . Bladder is normal. Moderate-sized fat-containing left inguinal hernia. No free intrape ritoneal gas or fluid. No pathologically enlarged abdominal or pelvic lymphadenopathy. There is calci fied atherosclerosis of the aorta and bilateral iliac arteries. There are bridging osteophytes at mul tiple levels in the spine, consistent with diffuse idiopathic skeletal hyperostosis (DISH). IMPRESSION: 1. Likely early or partial small bowel obstruction related to an adhesion with transition point along the anterior abdominal wall at the anterolateral right abdomen. 2. Moderate-sized fat-containing left inguinal hernia. 3. Moderate diverticulosis. Reviewed, dictated and finalized at location A. IMPRESSION: 1. Likely early or partial small bowel obstruction related to an adhesion with transition point along the anterior abdominal wall at the anterolateral right a bdomen. 2. Moderate-sized fat-containing left inguinal hernia. 3. Moderate diverticulosis.
--- NOTE | ~2021-12-11 | XR_ITS ---
EXAMINATION: XR abdomen NG/feed tube insert DATE: 12/11/2021 20:08 INDICATION: Epigastric tube insertion TECHNIQUE: A supine view of the abdomen and lower chest was obtained for evaluation of feeding tube placement. COMPARISON: None. FINDINGS: Gastric tube tip in proximal side port in the stomach. Postoperative changes in the upper abdomen. Th ere are some residual excreted contrast from the earlier contrast-enhanced CT in the right renal pelv is. Lung bases are clear. Heart size is normal. IMPRESSION: 1. Nasogastric tube in the stomach. Reviewed, dictated and finalized at location A.
--- NOTE | ~2021-12-11 | XR_ITS ---
EXAMINATION: XR abdomen obstructive series DATE: 12/12/2021 07:57 INDICATION: Small bowel obstruction TECHNIQUE: Frontal supine and upright views of the abdomen were obtained. COMPARISON: None. FINDINGS: Nasogastric tube tip in proximal side port in the body of the stomach. Postoperative changes in the u pper abdomen. Persistent gas within a few loops of not frankly dilated loops of small bowel in the ri ght lower quadrant consistent with likely partial small bowel obstruction as seen on prior CT. No brooks e intraperitoneal gas. Visualized lung bases are clear. There are bridging osteophytes at multiple levels in the spine, consistent with diffuse idiopathic skeletal hyperostosis (DISH). IMPRESSION: 1. Persistent gas within a few not frankly dilated loops of small bowel in the right lower quadrant consistent with previous noted likely partial small bowel obstruction. Reviewed, dictated and finalized at location A.
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
[2021-12-11 17:44] LABS: Basophils Percent Auto 0.2 % (0.2-1.2); Hematocrit 52.2 % (42.0-52.0); Hemoglobin 17.5 g/dL (14.0-18.0); Immature Granulocyte Absolute 0.05 K/mm3 (0.00-0.031); Immature Granulocyte Percent A 0.4 % (0-0.5); Lymphocytes Absolute Auto 1.91 K/mm3 (0.9-3.2); Lymphocytes Percent Auto 15.7 % (18.3-44.2); Mean Corpuscular HGB Conc 33.5 g/dl (32-36); Mean Corpuscular Hemoglobin 30.2 pg (26-34); Mean Platelet Volume 9.6 fl (7.4-10.4); Monocytes Absolute Auto 0.7 K/mm3 (0.1-0.6); Neutrophils Absolute Auto 9.5 K/mm3 (1.3-6.7); Neutrophils Percent Auto 77.7 % (45.5-73.1); Platelet Count Result 189 k/mm3 (150-375); Red Cell Distribution Width 16.1 % (11.5-14.5); White Blood Count 12.2 K/mm3 (4.5-10.0)
[2021-12-11] MEDS: MORPHINE SULFATE (*CRX) 4 MG/ML INJ IV PUSH (17:52)
[2021-12-11] MEDS: LACTATED RINGERS 1,000 ML 999 ML IV CONT (17:53)
[2021-12-11 17:57] LABS: Alanine Aminotransferase 644 U/L (6-50); Albumin Level 4.2 g/dL (3.5-5.1); Alkaline Phosphatase 157 U/L (38-126); Anion Gap 12 mmol/L (8-16); Aspartate Amino Transferase 363 U/L (17-59); Bilirubin,Total 1.6 mg/dL (0.2-1.3); Blood Urea Nitrogen 20 mg/dL (9-20); Calcium 9.1 mg/dL (8.4-10.2); Carbon Dioxide 35 mmol/L (22-30); Chloride 93 mmol/L (98-107); Estimated CRCL calculation 87 ml/min; Estimated Glomerular Filt Rate > 60; Glucose 305 mg/dL (65-110); Lipase 71 U/L (23-300); Potassium 5.1 mmol/L (3.4-5.0); Sodium 140 mmol/L (137-145)
--- NOTE | 2021-12-11 17:57 | PC.NURSE ---
Per Verbal orders from WAYLON Yoo ok to complete bag that was started by EMS.
--- NOTE | 2021-12-11 18:55 | ECG_ITS ---
Measurements Intervals [place] Rate: 94 P: 61 MS: 124 QRS: 38 QRSD: 94 T: -9 QT: 355 QTc: 445 Interpretive Statements SINUS RHYTHM NONSPECIFIC T-WAVE ABNORMALITY- INFERIOR LEADS BASELINE WANDER- II, III BORDERLINE ECG COMPARED TO ECG 03/16/2021 14:19:21 BORDERLINE T-WAVE ABNORMALITY NOW PRESENT Electronically Signed On 12-11-2021 20:23:19 CDT by Michael Macias D.O.
--- NOTE | 2021-12-11 19:10 | PC.NURSE ---
Report received from SANTIAGO Posada. Preparing to initiate NG tube and EKG.
[2021-12-11 19:11] LABS: Appearance Urine Clear (Clear); Bilirubin Urine Negative (Negative); Blood Urine Negative (Negative); Color Urine Yellow (Yellow); Glucose Urine UA 3+ mg/dL (Negative); Ketones Urine Negative (Negative); Leukocyte Esterase Ur Negative LEU/UL (Negative); Nitrate Urine Negative (Negative); Protein Urine Negative (Negative); pH Urine 5.5 (5.0-9.0)
[2021-12-11 19:19] LABS: Add Urine Microscopic? YES
[2021-12-11 19:22] LABS: RBC Urine 0-2 /hpf (0-2); Squamous Epithelial Cell Urine Few /hpf (Few); WBC Urine 0-3 /hpf (0-3)
[2021-12-11 19:23] LABS: Bacteria Urine Trace /hpf; Mucus Urine Rare /lpf
[2021-12-11 19:39] LABS: Acetaminophen < 10 ug/mL (10-30)
--- NOTE | 2021-12-11 20:06 | PC.NURSE ---
Port KUB being done to check placement of NG tube. Pt tolerated procedure well.
--- NOTE | 2021-12-11 20:11 | PC.NURSE ---
Report to Swetha on 2nd med. Denies questions at this time. Explained to pt will take to floor noam. NG tube continues to drain green bile.
[2021-12-11 20:16] LABS: Hepatitis B Surface Antigen Negative (Negative)
[2021-12-11 20:21] LABS: HAV RESULT Negative (Negative); Hepatitis B Core IgM Result Negative (Negative)
[2021-12-11 20:33] LABS: Hepatitis C Virus Antibody Negative (Negative)
--- NOTE | 2021-12-11 20:47 | ADMGEN ---
This patient, Benigno Nicolas, was admitted to Medical Room 260-. Patient/family oriented to hospital policies and general routines including ID bracelet, bed and alarms, visiting hours, pain management, procedures, bathroom and other care routines, personal items, smoking policy, room service/diet, and visiting hours. Information on how to activate the Rapid Response Team has been discussed. Patient/Family are encouraged to report perceived risks to care and to ask questions if they do not understand what they are told or what they should do.
[2021-12-11] MEDS: SODIUM CHLORIDE 0.9% IV 1,000 ML 125 ML IV CONT (20:54)
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
[2021-12-11 21:20] LABS: Glucose Point of Care 262 mg/dl (65-105)
[2021-12-11] MEDS: PHENOL/SOD PHENO SPRAY CHERRY (*BKC) 1 SPRAY MUCOUS MEM (23:24)
[2021-12-12 03:21] LABS: Hepatitis B Surface Antigen Negative (Negative)
[2021-12-12 03:23] LABS: Iron 121 ug/dL (49-181)
[2021-12-12 03:27] LABS: HAV RESULT Negative (Negative); Hepatitis B Core IgM Result Negative (Negative)
[2021-12-12 03:34] LABS: Percent Iron Saturation 44 % (20-50)
[2021-12-12 03:39] LABS: Hepatitis C Virus Antibody Negative (Negative)
[2021-12-12] MEDS: SODIUM CHLORIDE 0.9% IV 1,000 ML 125 ML IV CONT ×3 (04:35→20:23)
[2021-12-12 04:57] LABS: Basophils Percent Auto 0.3 % (0.2-1.2); Eosinophils Absolute Auto 0.1 K/mm3 (0-0.3); Hematocrit 48.4 % (42.0-52.0); Hemoglobin 16.2 g/dL (14.0-18.0); Immature Granulocyte Absolute 0.04 K/mm3 (0.00-0.031); Immature Granulocyte Percent A 0.3 % (0-0.5); Lymphocytes Absolute Auto 3.26 K/mm3 (0.9-3.2); Mean Corpuscular HGB Conc 33.5 g/dl (32-36); Mean Corpuscular Hemoglobin 30.3 pg (26-34); Mean Corpuscular Volume 90.6 fl (80-100); Mean Platelet Volume 9.7 fl (7.4-10.4); Monocytes Absolute Auto 1.1 K/mm3 (0.1-0.6); Monocytes Percent Auto 8.3 % (2.6-8.5); Neutrophils Absolute Auto 8.5 K/mm3 (1.3-6.7); Neutrophils Percent Auto 65.1 % (45.5-73.1); Platelet Count Result 197 k/mm3 (150-375); Red Blood Count 5.34 M/mm3 (4.6-6.20); Red Cell Distribution Width 15.8 % (11.5-14.5); White Blood Count 13.1 K/mm3 (4.5-10.0)
[2021-12-12 05:43] LABS: Alanine Aminotransferase 492 U/L (6-50); Albumin Level 3.6 g/dL (3.5-5.1); Alkaline Phosphatase 135 U/L (38-126); Anion Gap 13 mmol/L (8-16); Aspartate Amino Transferase 248 U/L (17-59); Bilirubin,Total 1.4 mg/dL (0.2-1.3); Blood Urea Nitrogen 22 mg/dL (9-20); Calcium 8.4 mg/dL (8.4-10.2); Carbon Dioxide 28 mmol/L (22-30); Chloride 101 mmol/L (98-107); Estimated CRCL calculation 85 ml/min; Estimated Glomerular Filt Rate > 60; Glucose 255 mg/dL (65-110); Magnesium 2.6 mg/dL (1.6-2.3); Sodium 142 mmol/L (137-145)
[2021-12-12 05:44] VITALS: BP 115/67; PULSE 87; RESP 18; TEMP 36.6; O2SAT 95
[2021-12-12 06:11] LABS: Lactate Dehydrogenase 241 U/L (120-246)
[2021-12-12 08:10] LABS: Glucose Point of Care 251 mg/dl (65-105)
[2021-12-12] MEDS: MORPHINE SULFATE (*CRX) 2 MG/ML INJ IV PUSH (08:40)
[2021-12-12] MEDS: INSULIN ASPART (*BKC) 100 UNITS/ML SUB-Q ×2 (08:41→17:01)
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
[2021-12-12] MEDS: amLODIPine BESYLATE 5 MG TABLET PO (12:19)
[2021-12-12] MEDS: ASPIRIN 81 MG CHEWABLE TABLET PO (12:19)
[2021-12-12 12:31] LABS: Glucose Point of Care 200 mg/dl (65-105)
[2021-12-12 13:00] LABS: Hemoglobin A1C 10.2 % (<5.7)
[2021-12-12 14:00] VITALS: BP 109/54; PULSE 80; RESP 20; TEMP 36.4; O2SAT 96
--- NOTE | 2021-12-12 14:59 | PC.NURSE ---
per protocol the patient was asked about symptoms and was observed for symptoms. The patient reported that he felt good, and certainly well enough to have his NG tube removed. Based on the note left by Dr. Scott, after 4 hours the patient's NG tube will be removed and documented.
[2021-12-12 16:54] LABS: Glucose Point of Care 304 mg/dl (65-105)
[2021-12-12 20:28] LABS: Glucose Point of Care 313 mg/dl (65-105)
[2021-12-12 21:28] VITALS: BP 101/54; PULSE 82; RESP 20; TEMP 37.1; O2SAT 97
[2021-12-12] MEDS: FLUTICASONE PROPIONATE 0.05% NA SPR 16 GM BTL (*BKC) 1 SPRAY NASAL (23:54)
[2021-12-12] MEDS: SALINE 0.65% NAS SOLN 44 ML BTL 1 SPRAY NASAL (23:54)
[2021-12-13 05:07] LABS: Hemoglobin 13.9 g/dL (14.0-18.0); Mean Corpuscular HGB Conc 33.1 g/dl (32-36); Mean Corpuscular Hemoglobin 29.9 pg (26-34); Mean Corpuscular Volume 90.3 fl (80-100); Mean Platelet Volume 9.6 fl (7.4-10.4); Platelet Count Result 157 k/mm3 (150-375); Red Blood Count 4.65 M/mm3 (4.6-6.20); Red Cell Distribution Width 15.2 % (11.5-14.5); White Blood Count 7.7 K/mm3 (4.5-10.0)
[2021-12-13 05:21] LABS: Alanine Aminotransferase 337 U/L (6-50); Albumin Level 2.8 g/dL (3.5-5.1); Alkaline Phosphatase 95 U/L (38-126); Anion Gap 4 mmol/L (8-16); Aspartate Amino Transferase 193 U/L (17-59); Bilirubin,Total 1.4 mg/dL (0.2-1.3); Blood Urea Nitrogen 18 mg/dL (9-20); Calcium 7.5 mg/dL (8.4-10.2); Carbon Dioxide 25 mmol/L (22-30); Chloride 106 mmol/L (98-107); Estimated CRCL calculation 105 ml/min; Estimated Glomerular Filt Rate > 60; Glucose 235 mg/dL (65-110); Potassium 3.7 mmol/L (3.4-5.0); Sodium 135 mmol/L (137-145)
[2021-12-13] MEDS: SODIUM CHLORIDE 0.9% IV 1,000 ML 125 ML IV CONT (05:23)
[2021-12-13 05:24] VITALS: BP 116/69; PULSE 68; RESP 18; TEMP 36.7; O2SAT 97
[2021-12-13 08:54] LABS: Glucose Point of Care 207 mg/dl (65-105)
[2021-12-13] MEDS: ASPIRIN 81 MG CHEWABLE TABLET PO (09:17)
[2021-12-13] MEDS: amLODIPine BESYLATE 5 MG TABLET PO (09:17)
[2021-12-13] MEDS: INSULIN ASPART (*BKC) 100 UNITS/ML SUB-Q ×2 (09:17→12:42)
--- NOTE | 2021-12-13 11:12 | PM.PNGS ---
Progress Note: A&P Assessment and Plan (1) Small bowel obstruction: Code(s): K56.609 - Unspecified intestinal obstruction, unspecified as to partial versus complete obstruction Status: Acute Assessment and Plan: improved, ADAT, encourage OOB, ok to dc from surgical standpoint if star diet Subjective Subjective Date/Time Seen: 12/13/21 11:12 much improved today, +bowel fxn, star clears Review of Systems Review of Systems: All systems reviewed & are unremarkable except as noted in HPI and below Exam Const: General: cooperative, comfortable and no acute distress Resp: Auscultation: clear to auscultation bilaterally Cardio: Rate: regular rate Rhythm: regular rhythm GI: Inspection: normal to inspection and non-distended GI Palp: No abdominal tenderness, Yes Soft to palpation, No Tenderness to palpation present (GI), No Guarding due to palpation present (GI) and No Rigid due to palpation Objective Data Vital Signs Vital Signs: Vital Signs - 24 hr 12/12/21 14:00 12/12/21 19:53 12/12/21 21:28 Temperature 36.4 C 37.1 C Pulse Rate 80 82 Respiratory Rate 20 20 Blood Pressure 109/54 L 101/54 L Pulse Oximetry 96 97 Oxygen Delivery Room Air 12/13/21 05:24 12/13/21 09:17 Temperature 36.7 C Pulse Rate 68 Respiratory Rate 18 Blood Pressure 116/69 Pulse Oximetry 97 Oxygen Delivery Room Air Intake/Output Intake/Output: Intake & Output 12/10/21 12/11/21 12/12/21 12/13/21 23:59 23:59 23:59 23:59 Intake Total 1100 4254 2360 Output Total 850 2700 600 Balance 250 1554 1760 Meds/Results Medications: Active Medications Generic Name Dose Route Start Last Admin Trade Name Freq PRN Reason Stop Dose Admin Amlodipine Besylate 5 mg 12/12/21 09:00 12/13/21 09:17 Amlodipine Besylate 5 Mg Tablet PO 5 mg DAILY MEGAN Administration Aspirin 81 mg 12/12/21 08:00 12/13/21 09:17 Aspirin 81 Mg Chewable Tablet PO 81 mg DAILY@0800 MEGAN Administration Dextrose 12.5 gm 12/11/21 21:43 Dextrose 50% 25 Gm/50 Ml Syringe IV PUSH PRN PRN Hypoglycemia Protocol Fluticasone Propionate 1 spray 12/12/21 23:31 12/12/21 23:54 Fluticasone Propionate 0.05% Na Spr 16 Gm Btl (*Bkc) NASAL 1 spray Q12HR PRN Administration Congestion Glucagon 1 mg 12/11/21 21:43 Glucagon For Inj 1 Mg Vial IM PRN PRN Hypoglycemia Protocol Glucose 15 gm 12/11/21 21:43 Glucose Oral Gel 15 Gm Of Glucse In 37.5 Gm Tube PO PRN PRN Hypoglycemia Protocol Hydralazine HCl 10 mg 12/11/21 21:40 Hydralazine Hcl 20 Mg/Ml Vial IV PUSH Q8H PRN Blood Pressure - High Dextrose 1,000 mls @ 100 mls/hr 12/11/21 21:43 Dextrose 5% 1,000 Ml IVPB PRN PRN Hypoglycemia Protocol Insulin Aspart 3 - 6 units 12/13/21 08:00 12/13/21 09:17 Insulin Aspart (*Bkc) 100 Units/Ml SUB-Q 3 units TIDWM MEGAN Administration Protocol Morphine Sulfate 2 mg 12/11/21 21:49 12/12/21 08:40 Morphine Sulfate (*Crx) 2 Mg/Ml Inj IV PUSH 2 mg Q4H PRN Administration Pain Rated 7-10 Ondansetron HCl 4 mg 12/11/21 21:42 Ondansetron Inj 4 Mg/2 Ml Vial IV PUSH Q4H PRN Nausea And Vomiting Phenol 1 spray 12/11/21 21:37 12/11/21 23:24 Phenol/Sod Pheno [place] (*Bkc) MUCOUS MEM 1 spray PRN PRN Administration Sore Throat Sodium Chloride 1 spray 12/12/21 23:29 12/12/21 23:54 Saline 0.65% Damaso Soln 44 Ml Btl NASAL 1 spray Q6HR PRN Administration Congestion Radiology Results: ITS Impressions Abdomen/Pelvis CT 12/11/21 18:22 IMPRESSION: 1. Likely early or partial small bowel obstruction related to an adhesion with transition point along the anterior abdominal wall at the anterolateral right abdomen. 2. Moderate-sized fat-containing left inguinal hernia. 3. Moderate diverticulosis. Abdomen Ultrasound 12/12/21 07:55 IMPRESSION: 1. Normal right upper joe
[2021-12-13 12:15] LABS: Glucose Point of Care 268 mg/dl (65-105)
[2021-12-13 13:58] VITALS: BP 112/56; PULSE 80; RESP 19; TEMP 36.8; O2SAT 99
--- NOTE | 2021-12-13 14:42 | P.DS_ITS ---
DS: Admitting Diagnosis Discharge Date 12/15/2021 Admitting Diagnosis SBO DS: Discharge Diagnosis Discharge Diagnosis (1) Small bowel obstruction: Code(s): K56.609 - Unspecified intestinal obstruction, unspecified as to partial versus complete obstruction Status: Acute Assessment and Plan: patient presented with abdominal bloating, nausea, and vomiting * CT of the abdomen on presentation showed early or partial SBO with transition point along anterior abdominal wall * Likely due to adhesions given history of prior abdominal surgery * NG tube placed on admission * Seen in consultation by General surgery * Symptomatic improvement with NG decompression and bowel function returned * NG discontinued and diet was slowly advanced. Patient eventually able to tolerate low-fiber diet. (2) Transaminitis: Code(s): R74.01 - Elevation of levels of liver transaminase levels Status: Acute Assessment and Plan: LFTs markedly elevated on presentation * hepatitis panel is negative * abdominal ultrasound unremarkable * atorvastatin was held and will remain on hold * acetaminophen was discontinued * LFTs with significant improvement during hospitalization * may have been transient elevation due to shock liver * repeat hepatic panel outpatient in 1 week (3) HTN (hypertension): Code(s): I10 - Essential (primary) hypertension Status: Acute Assessment and Plan: blood pressure reviewed and was stable. * continue amlodipine (4) Dyslipidemia: Code(s): E78.5 - Hyperlipidemia, unspecified Status: Acute Assessment and Plan: holding statin due to transaminitis. (5) CAD (coronary artery disease): Code(s): I25.10 - Atherosclerotic heart disease of [place] coronary artery without angina pectoris Status: Acute Assessment and Plan: patient with history of NSTEMI in August 2020 * patient reported to prior provider recent cardiac catheterization this year which showed minimal disease * continue aspirin therapy (6) Hyperglycemia: Code(s): R73.9 - Hyperglycemia, unspecified Status: Acute Assessment and Plan: blood sugars elevated in the 250s * patient reports no history of diabetes and is not on insulin or hypoglycemic agents * will check A1c * monitor glucose trends (7) Type 2 diabetes mellitus: Code(s): E11.9 - Type 2 diabetes mellitus without complications Status: Acute Assessment and Plan: No history of type 2 diabetes reports or noted in EMR, however patient admits to history of DM. States he was taken off all medication after losing weight and had been managing with diet with overall control. Recently, he has gained weight and stopped exercising or monitoring diet. Blood sugars elevated during admission and A1c found to be 10.2. * Long discussion with patient and family regarding need for appropriate diabetic regimen for improved glucose control. Patient not interested in considering insulin. Agreeable to metformin which was started at 500 mg BID. Discussed additional hypoglycemic agents such as Januvia. Pt reports he had been on metformin and glyburide in the past with good control and wished to continue this medication. * Continue metformin and glyburide for now and will follow with PCP in 1 week to review blood sugars and adjust medications at discretion of PCP. * Instructed to monitor blood sugars TID with meals and at bedtime and record. DS: Summary Hospital Course
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
== END 2021-12-13 15:15 | disposition home or self-care (01) | DRG 389 ==
LOC: ANHED 17:19 → ANH2MED 19:43
PROVIDERS: Nurse Practitioner; Physician Assistant; Admitting Provider Chiropractor; Emergency Provider Emergency Medicine; PCP Family Medicine; Visit Provider Physician Assistant
DX: K56.51 Intestinal adhesions [bands], with partial obstruction (principal); Z68.41 Body mass index [BMI] 40.0-44.9, adult; E66.9 Obesity, unspecified; E11.65 Type 2 diabetes mellitus with hyperglycemia; I10 Essential (primary) hypertension; R74.01 Elevation of levels of liver transaminase levels; E78.5 Hyperlipidemia, unspecified; I25.10 Atherosclerotic heart disease of native coronary artery without angina pectoris; I25.2 Old myocardial infarction; Z79.82 Long term (current) use of aspirin; Z79.899 Other long term (current) drug therapy; Z87.828 Personal history of other (healed) physical injury and trauma; Z87.891 Personal history of nicotine dependence; Z98.890 Other specified postprocedural states
CPT/HCPCS: 36415; 74019; 74177; 76705; 80053; 80074; 80307; 81001; 82728; 82948; 83036; 83540; 83550; 83615; 83690; 83735; 84443; 85025; 85027; 93005; 96361; 96365; 96375; 96376; 99285; A9270; G0378; J0131; J1815; J2270; J7030; J7120; Q9967

== ENCOUNTER 2021-12-16 15:25 | Emergency (ER) | payer OTHER, SELFPAY ==
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
[2021-12-16 15:33] VITALS: BP 124/81; PULSE 79; RESP 20; TEMP 36.9; O2SAT 100
== END 2021-12-16 15:55 | disposition home or self-care (01) ==
PROVIDERS: Emergency Provider Nurse Practitioner Family; PCP Family Medicine
DX: L02.212 Cutaneous abscess of back [any part, except buttock and flank] (principal); Z87.891 Personal history of nicotine dependence; I25.10 Atherosclerotic heart disease of native coronary artery without angina pectoris; E78.5 Hyperlipidemia, unspecified; I10 Essential (primary) hypertension; I25.2 Old myocardial infarction; E11.9 Type 2 diabetes mellitus without complications
CPT/HCPCS: 99213; G0463

== ENCOUNTER 2021-12-25 10:34 | Outpatient (CLI) | payer OTHER, SELFPAY ==
[2021-12-25 11:41] LABS: Alanine Aminotransferase 278 U/L (6-50); Albumin Level 3.6 g/dL (3.5-5.1); Alkaline Phosphatase 115 U/L (38-126); Aspartate Amino Transferase 210 U/L (17-59); Bilirubin,Total 0.6 mg/dL (0.2-1.3)
== END 2021-12-25 10:35 | disposition home or self-care (01) ==
LOC: ANHLAB 10:37
PROVIDERS: PCP Family Medicine; Referring Provider Physician Assistant; Visit Provider Physician Assistant
DX: R74.01 Elevation of levels of liver transaminase levels (principal)
CPT/HCPCS: 36415; 80076

== ENCOUNTER 2021-12-25 17:45 | Emergency (ER) | payer OTHER, SELFPAY ==
[2021-12-25 17:50] VITALS: BP 119/67; PULSE 84; RESP 16; TEMP 36.8; O2SAT 98
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
== END 2021-12-25 18:54 | disposition home or self-care (01) ==
PROVIDERS: Emergency Provider Nurse Practitioner Family; PCP Family Medicine
DX: L02.212 Cutaneous abscess of back [any part, except buttock and flank] (principal); L72.9 Follicular cyst of the skin and subcutaneous tissue, unspecified; I25.10 Atherosclerotic heart disease of native coronary artery without angina pectoris; E78.5 Hyperlipidemia, unspecified; I10 Essential (primary) hypertension; E11.9 Type 2 diabetes mellitus without complications; I25.2 Old myocardial infarction; Z87.891 Personal history of nicotine dependence
CPT/HCPCS: 99212; G0463

== ENCOUNTER 2022-01-06 10:19 | Outpatient (CLI) | payer OTHER, SELFPAY ==
--- NOTE | ~2022-01-06 | NM_ITS ---
EXAMINATION: NM estefany stress w perfusion DATE: 01/06/2022 13:37 INDICATION: Chest pain. TECHNIQUE: Rest images were obtained following intravenous administration of 10.3 mCi Tc99m tetrofosm in (Myoview). The patient was infused intravenously with Lexiscan (regadenoson). Then, 30 mCi Tc99m t etrofosmin (Myoview) was administered intravenously, and supine and prone stress images were obtained . Data was reconstructed into short axis and horizontal and vertical long axis SPECT images. Gated SP ECT images were also obtained. COMPARISON: CT abdomen and pelvis 12/11/2021 FINDINGS: There is no definite reversible or fixed perfusion abnormality to suggest ischemia or infar ction. There is no segmental wall motion abnormality. Left ventricular ejection fraction measures 5 2%. IMPRESSION: 1. No definite ischemia or infarct. 2. Normal left ventricular ejection fraction measuring 52%. Reviewed, dictated and finalized at location A.
--- NOTE | 2022-01-06 11:28 | EST_ITS ---
Patient Info Name: Benigno Nicolas Age: 66 years : 1955 Gender: Male Ht: 69 in Wt: 295 lbs BSA: 2.62 m2 Exam Date: 01/06/2022 11:37 AM Exam Location: [facility] Stress Patient Status: Outpatient Admit Date: 01/06/2022 Staff Ordering Physician: Michael Macias DO Attending Provider: Michael Macias DO Exercise Technologist: Salma Hayden [facility] Exercise Physician: Michael Macias DO Exam Type: CA stress estefany w NM Summary 1. 1. Negative lexiscan stress test for ischemic ST changes by ECG criteria. 2. 2. Stable hemodynamics throughout the test. 3. 3. Nuclear scan to follow and will be reported separately. Please correlate with it. 4. 4. Patient informed of the above results. Protocol: Lexiscan Stress ECG Details Stage: REST Duration (min): 1 min : 56 sec HR (bpm): 74 SBP (mmHg): 100 DBP (mmHg): 71 Stage: REST Duration (min): 9 min : 11 sec HR (bpm): 72 SBP (mmHg): 100 DBP (mmHg): 71 Stage: STAGE 1 Duration (min): 0 min : 59 sec HR (bpm): 96 SBP (mmHg): 112 DBP (mmHg): 78 Stage: RECOVERY Duration (min): 1 min : 0 sec HR (bpm): 97 SBP (mmHg): 112 DBP (mmHg): 78 Stage: RECOVERY Duration (min): 2 min : 0 sec HR (bpm): 90 SBP (mmHg): 112 DBP (mmHg): 78 Stage: RECOVERY Duration (min): 3 min : 0 sec HR (bpm): 91 SBP (mmHg): 98 DBP (mmHg): 71 Stage: RECOVERY Duration (min): 4 min : 0 sec HR (bpm): 82 SBP (mmHg): 98 DBP (mmHg): 71 Stage: RECOVERY Duration (min): 4 min : 2 sec HR (bpm): 83 SBP (mmHg): 98 DBP (mmHg): 71 Rest HR: 72 bpm Peak HR: 98 bpm Rest Sys BP: 100 mmHg Peak Sys BP: 112 mmHg Max Pred HR: 154 bpm % Max Pred HR: 64 % Target HR: 131 bpm Max RPP: 10,976 bpm*mmHg Termination Reason: Completed protocol Cardiac Symptoms: Shortness of breath Total Time: 1 min : 0 sec Rest Tobin BP: 71 mmHg Peak Tobin BP: 78 mmHg Total Dose: 0.4 mg Resting ECG Sinus rhythm. Stress ECG No ST changes. Arrhythmias None. Report Signatures
== END 2022-01-06 10:20 | disposition home or self-care (01) ==
PROVIDERS: PCP Family Medicine; Visit Provider Internal Medicine Cardiovascular Disease
DX: R07.9 Chest pain, unspecified (principal)
CPT/HCPCS: 78452; 93017; A9502; J2785

== ENCOUNTER 2022-02-03 14:52 | Outpatient (CLI) | payer OTHER, SELFPAY ==
[2022-02-03 15:16] LABS: Alanine Aminotransferase 73 U/L (6-50); Albumin Level 3.6 g/dL (3.5-5.1); Alkaline Phosphatase 103 U/L (38-126); Anion Gap 8 mmol/L (8-16); Aspartate Amino Transferase 61 U/L (17-59); Bilirubin,Total 0.6 mg/dL (0.2-1.3); Blood Urea Nitrogen 10 mg/dL (9-20); Calcium 8.1 mg/dL (8.4-10.2); Carbon Dioxide 26 mmol/L (22-30); Chloride 105 mmol/L (98-107); Estimated Glomerular Filt Rate > 60; Glucose 149 mg/dL (65-110); Sodium 139 mmol/L (137-145)
== END 2022-02-03 14:53 | disposition home or self-care (01) ==
PROVIDERS: PCP Family Medicine; Visit Provider Internal Medicine Cardiovascular Disease
DX: R74.01 Elevation of levels of liver transaminase levels (principal)
CPT/HCPCS: 36415; 80053

== ENCOUNTER 2022-05-08 10:03 | Outpatient (CLI) | payer OTHER, SELFPAY ==
[2022-05-08 11:00] LABS: Alanine Aminotransferase 42 U/L (6-50); Albumin Level 3.7 g/dL (3.5-5.1); Alkaline Phosphatase 79 U/L (38-126); Anion Gap 5 mmol/L (8-16); Aspartate Amino Transferase 40 U/L (17-59); Bilirubin,Total 0.7 mg/dL (0.2-1.3); Blood Urea Nitrogen 12 mg/dL (9-20); Calcium 8.6 mg/dL (8.4-10.2); Carbon Dioxide 29 mmol/L (22-30); Chloride 105 mmol/L (98-107); Cholesterol 137 mg/dL (0-200); Estimated Glomerular Filt Rate > 60; Glucose 143 mg/dL (65-110); HDL Direct 41 mg/dL; Potassium 4.5 mmol/L (3.4-5.0); Sodium 139 mmol/L (137-145); Triglycerides 78 mg/dL (<150)
[2022-05-08 11:12] LABS: LDL Cholesterol Direct 70 mg/dL
== END 2022-05-08 10:04 | disposition home or self-care (01) ==
LOC: ANHLAB 10:03
PROVIDERS: PCP Family Medicine; Visit Provider Internal Medicine Cardiovascular Disease
DX: E78.5 Hyperlipidemia, unspecified (principal)
CPT/HCPCS: 36415; 80053; 80061

== ENCOUNTER 2022-07-31 07:35 | Outpatient (CLI) | payer OTHER, SELFPAY ==
[2022-07-31 10:34] LABS: Basophils Absolute Auto 0.1 K/mm3 (0.0-0.1); Basophils Percent Auto 0.7 % (0.2-1.2); Eosinophils Absolute Auto 0.2 K/mm3 (0-0.3); Eosinophils Percent Auto 2.5 % (0-4.4); Hemoglobin 17.6 g/dL (14.0-18.0); Immature Granulocyte Absolute 0.01 K/mm3 (0.00-0.031); Immature Granulocyte Percent A 0.1 % (0-0.5); Lymphocytes Absolute Auto 2.42 K/mm3 (0.9-3.2); Mean Corpuscular HGB Conc 33.2 g/dl (32-36); Mean Corpuscular Hemoglobin 29.7 pg (26-34); Mean Corpuscular Volume 89.5 fl (80-100); Mean Platelet Volume 9.2 fl (7.4-10.4); Monocytes Absolute Auto 0.6 K/mm3 (0.1-0.6); Monocytes Percent Auto 7.7 % (2.6-8.5); Neutrophils Absolute Auto 3.9 K/mm3 (1.3-6.7); Platelet Count Result 260 k/mm3 (150-375); Red Blood Count 5.92 M/mm3 (4.6-6.20); White Blood Count 7.1 K/mm3 (4.5-10.0)
[2022-07-31 10:48] LABS: Alanine Aminotransferase 42 U/L (6-50); Albumin Level 3.9 g/dL (3.5-5.1); Alkaline Phosphatase 68 U/L (38-126); Anion Gap 7 mmol/L (8-16); Aspartate Amino Transferase 42 U/L (17-59); Bilirubin,Total 0.7 mg/dL (0.2-1.3); Blood Urea Nitrogen 7 mg/dL (9-20); Calcium 8.3 mg/dL (8.4-10.2); Carbon Dioxide 28 mmol/L (22-30); Chloride 104 mmol/L (98-107); Cholesterol 116 mg/dL (0-200); Estimated Glomerular Filt Rate > 60; Glucose 117 mg/dL (65-110); HDL Direct 33 mg/dL; Potassium 3.7 mmol/L (3.4-5.0); Sodium 139 mmol/L (137-145); Triglycerides 66 mg/dL (<150)
[2022-07-31 10:49] LABS: Hemoglobin A1C 6.5 % (<5.7)
[2022-07-31 11:01] LABS: LDL Cholesterol Direct 63 mg/dL
[2022-07-31 11:04] LABS: Free T4 Free Thyroxine 1.19 ng/mL (0.78-2.19); Vitamin D 25 Hydroxy 78.1 ng/mL
[2022-07-31 11:20] LABS: Prostate Specific Antigen 0.4 ng/mL (< OR = 4.0)
[2022-08-04 04:54] LABS: FSH <0.7 mIU/mL (1.6-8.0); LH <0.2 mIU/mL (1.6-15.2); Triiodothyronine T3 Free 3.5 pg/mL (2.3-4.2)
[2022-08-06 11:37] LABS: Testosterone Total 1044 ng/dL (250-1100)
[2022-08-06 11:46] LABS: Testosterone Free 230.4 pg/mL (46.0-224.0)
[2022-08-08 22:18] LABS: Estradiol, Ultrasensitive 84 pg/mL (< OR = 29)
== END 2022-07-31 07:36 | disposition home or self-care (01) ==
PROVIDERS: PCP Family Medicine; Visit Provider Family Medicine
DX: E29.1 Testicular hypofunction (principal); R53.1 Weakness; R53.83 Other fatigue; E11.9 Type 2 diabetes mellitus without complications; N52.9 Male erectile dysfunction, unspecified; I12.9 Hypertensive chronic kidney disease with stage 1 through stage 4 chronic kidney disease, or unspecified chronic kidney disease; N18.2 Chronic kidney disease, stage 2 (mild)
CPT/HCPCS: 36415; 80053; 80061; 82306; 82670; 83001; 83002; 83036; 84153; 84402; 84403; 84439; 84443; 84481; 85025; G0103

== ENCOUNTER 2022-11-06 07:29 | Outpatient (CLI) | payer OTHER, SELFPAY ==
[2022-11-06 08:14] LABS: Basophils Absolute Auto 0.1 K/mm3 (0.0-0.1); Basophils Percent Auto 0.9 % (0.2-1.2); Eosinophils Absolute Auto 0.3 K/mm3 (0-0.3); Eosinophils Percent Auto 3.5 % (0-4.4); Hematocrit 56.8 % (42.0-52.0); Hemoglobin 18.9 g/dL (14.0-18.0); Immature Granulocyte Absolute 0.02 K/mm3 (0.00-0.031); Immature Granulocyte Percent A 0.2 % (0-0.5); Lymphocytes Percent Auto 29.5 % (18.3-44.2); Mean Corpuscular HGB Conc 33.3 g/dl (32-36); Mean Corpuscular Hemoglobin 29.7 pg (26-34); Mean Corpuscular Volume 89.2 fl (80-100); Mean Platelet Volume 8.4 fl (7.4-10.4); Monocytes Absolute Auto 0.7 K/mm3 (0.1-0.6); Monocytes Percent Auto 8.1 % (2.6-8.5); Neutrophils Absolute Auto 5.1 K/mm3 (1.3-6.7); Neutrophils Percent Auto 57.8 % (45.5-73.1); Platelet Count Result 238 k/mm3 (150-375); Red Blood Count 6.37 M/mm3 (4.6-6.20); Red Cell Distribution Width 17.3 % (11.5-14.5); White Blood Count 8.8 K/mm3 (4.5-10.0)
[2022-11-06 08:26] LABS: Alanine Aminotransferase 47 U/L (6-50); Albumin Level 4.4 g/dL (3.5-5.1); Alkaline Phosphatase 74 U/L (38-126); Anion Gap 7 mmol/L (8-16); Aspartate Amino Transferase 50 U/L (17-59); Bilirubin,Total 0.8 mg/dL (0.2-1.3); Blood Urea Nitrogen 17 mg/dL (9-20); Calcium 9.1 mg/dL (8.4-10.2); Carbon Dioxide 28 mmol/L (22-30); Chloride 100 mmol/L (98-107); Cholesterol 143 mg/dL (0-200); Estimated Glomerular Filt Rate > 60; Glucose 108 mg/dL (65-110); HDL Direct 36 mg/dL; Potassium 4.5 mmol/L (3.4-5.0); Sodium 135 mmol/L (137-145); Triglycerides 104 mg/dL (<150)
[2022-11-06 08:37] LABS: LDL Cholesterol Direct 76 mg/dL
[2022-11-06 08:46] LABS: Free T4 Free Thyroxine 1.18 ng/mL (0.78-2.19)
[2022-11-06 08:55] LABS: Prostate Specific Antigen 0.4 ng/mL (< OR = 4.0); Total Triiodothyronine (T3) 1.29 NG/ML (0.97-1.69)
[2022-11-10 11:02] LABS: Testosterone Free 220.8 pg/mL (35.0-155.0); Testosterone Total 856 ng/dL (250-1100)
== END 2022-11-06 07:30 | disposition home or self-care (01) ==
PROVIDERS: PCP Family Medicine; Visit Provider Family Medicine
DX: E78.5 Hyperlipidemia, unspecified (principal); I10 Essential (primary) hypertension; E55.9 Vitamin D deficiency, unspecified; E11.9 Type 2 diabetes mellitus without complications; N52.9 Male erectile dysfunction, unspecified
CPT/HCPCS: 36415; 80053; 80061; 84153; 84402; 84403; 84439; 84443; 84480; 85025

== ENCOUNTER 2023-01-06 14:30 | Outpatient (RCR) | payer OTHER, SELFPAY ==
[2022-11-11 15:03] VITALS: BMI 43.0
[2022-11-11 15:05] VITALS: BMI 43.0
[2023-01-06 14:56] VITALS: BMI 41.3; BMI 43.0
== END 2023-01-31 09:47 | disposition home or self-care (01) ==
LOC: ANHDMC 14:30
PROVIDERS: PCP Family Medicine; Visit Provider Nurse Practitioner Family
DX: E11.9 Type 2 diabetes mellitus without complications (principal); Z71.3 Dietary counseling and surveillance
CPT/HCPCS: 97802; 97803

== ENCOUNTER 2023-01-26 14:24 | Outpatient (CLI) | payer OTHER, SELFPAY ==
--- NOTE | ~2023-01-26 | US_ITS ---
EXAMINATION: US thyroid DATE: 01/26/2023 14:42 INDICATION: Nontoxic goiter. TECHNIQUE: Multiple ultrasound images of the thyroid were obtained. COMPARISON: None. FINDINGS: The right thyroid lobe measures 4.7 x 2.0 x 2.7 cm. The left thyroid lobe measures 4.5 x 1.6 x 2.3 c m. There is normal echotexture and echogenicity throughout the thyroid gland. No discrete nodules id entified. Normal vascular flow is present. IMPRESSION: 1. Normal thyroid. Reviewed, dictated and finalized at location E. IMPRESSION: 1. Normal thyroid.
== END 2023-01-26 14:25 ==
LOC: GOSHIMG 14:27
PROVIDERS: PCP Nurse Practitioner Adult Health; Visit Provider Nurse Practitioner Family
DX: E04.9 Nontoxic goiter, unspecified (principal)
CPT/HCPCS: 76536

== ENCOUNTER 2023-03-20 13:48 | Emergency (ER) | payer OTHER, SELFPAY ==
--- NOTE | ~2023-03-20 | XR_ITS ---
EXAMINATION: XR chest 1V portable Exam Date/Time: 03/20/2023 14:23 CLINICAL PROJECT COORDINATOR HISTORY: NECK MASS, NO HEART OR LUNG COMPLAINTS Comparison: 08/08/2020. RESULT: Lines, tubes, and devices: None. Lungs and pleura: Senescent change, otherwise clear Cardiomediastinal silhouette: Stable. Other: No acute osseous or upper abdominal finding. Question soft tissue prominence over the left mi d clavicle. IMPRESSION: No acute cardiopulmonary process. Question of soft tissue prominence over the left clavicle. Reviewed, dictated and finalized at location K. ICAL PROJECT COORDINATOR IMPRESSION: No acute cardiopulmonary process. Question of soft tissue prominence over the l eft clavicle.
--- NOTE | ~2023-03-20 | CT_ITS ---
EXAMINATION: CT soft tissue neck w con DATE: 03/20/2023 15:44 INDICATION: Left submandibular mass, question salivary gland disorder. TECHNIQUE: Computed tomography (CT) of the neck was performed with 75 mL Omnipaque-350 intravenous co ntrast. Automated exposure control and iterative reconstruction technique were employed. The dose-triny gth product was 576.28 mGy-cm. COMPARISON: 06/11/2013 FINDINGS: The thyroid gland is unremarkable. Absent right submandibular gland. Multiple surgical clips in the region and in the right floor the mouth. Rounded calcification in the same region, may represent a s ialolith on the right. Mildly enlarged left submandibular gland measuring 3.2 cm. Multiple internal r ounded calcifications. Suggestion of tubular fluid density structure extending from the gland into th e floor the mouth, may represent a distended salivary duct. 2 mm calcification in the distal most asp ect of the floor the mouth near the mandibular arch just to the left of midline, may represent a impa cted distal salivary stone. The parotid glands are symmetric. There is no cervical lymphadenopathy. The superior mediastinum is unremarkable. The airway is unremarkable. Parapharyngeal and pre-gl ottic fat planes are preserved. Bilateral calcified plaque at the carotid bifurcations. The orbits are unremarkable. Mild mucosal thickening in the ethmoid air cells. Emphysematous change in the l ungs. There is severe cervical spondylosis with multifocal posterior longitudinal ligament calcificat ion. Dental caries. IMPRESSION: Enlarged left submandibular gland, without inflammatory change or atrophy, containing multiple puncta te calcifications. Suggestion of dilation of the left submandibular salivary ducts, with a 2 mm distal calcification porsche t may represent an impacted sialolith. Surgically absent right submandibular gland with a residual distal, likely salivary duct calcificatio n. Dental caries. Reviewed, dictated and finalized at location K. [employer] CREWMAN IMPRESSION: Enlarged left submandibular gland, without inflammatory change or atrophy, cont aining multiple punctate calcifications. Suggestion of dilation of the left submandibular salivary ducts, with a 2 mm di stal calcification that may represent an impacted sialolith. Surgically absent right submandibular gland with a residual distal, likely sali vary duct calcification. Dental caries.
[2023-03-20 13:56] VITALS: BP 122/72; PULSE 98; RESP 17; TEMP 37.3; O2SAT 98
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
[2023-03-20 14:38] LABS: Basophils Absolute Auto 0.1 K/mm3 (0.0-0.1); Basophils Percent Auto 0.4 % (0.2-1.2); Eosinophils Absolute Auto 0.3 K/mm3 (0-0.3); Eosinophils Percent Auto 2.9 % (0-4.4); Hematocrit 56.4 % (42.0-52.0); Hemoglobin 18.8 g/dL (14.0-18.0); Immature Granulocyte Absolute 0.04 K/mm3 (0.00-0.031); Immature Granulocyte Percent A 0.3 % (0-0.5); Lymphocytes Absolute Auto 2.06 K/mm3 (0.9-3.2); Lymphocytes Percent Auto 17.6 % (18.3-44.2); Mean Corpuscular HGB Conc 33.3 g/dl (32-36); Mean Corpuscular Hemoglobin 29.4 pg (26-34); Mean Corpuscular Volume 88.3 fl (80-100); Mean Platelet Volume 8.2 fl (7.4-10.4); Monocytes Absolute Auto 0.9 K/mm3 (0.1-0.6); Monocytes Percent Auto 7.3 % (2.6-8.5); Neutrophils Absolute Auto 8.4 K/mm3 (1.3-6.7); Neutrophils Percent Auto 71.5 % (45.5-73.1); Platelet Count Result 222 k/mm3 (150-375); Red Blood Count 6.39 M/mm3 (4.6-6.20); Red Cell Distribution Width 17.1 % (11.5-14.5); White Blood Count 11.7 K/mm3 (4.5-10.0)
[2023-03-20 14:48] LABS: Alanine Aminotransferase 31 U/L (6-50); Albumin Level 4.3 g/dL (3.5-5.1); Alkaline Phosphatase 85 U/L (38-126); Anion Gap 10 mmol/L (8-16); Aspartate Amino Transferase 37 U/L (17-59); Bilirubin,Total 0.7 mg/dL (0.2-1.3); Blood Urea Nitrogen 12 mg/dL (9-20); Carbon Dioxide 21 mmol/L (22-30); Chloride 106 mmol/L (98-107); Estimated CRCL calculation 53 ml/min; Estimated Glomerular Filt Rate > 60; Glucose 114 mg/dL (65-110); Sodium 137 mmol/L (137-145)
[2023-03-20 14:50] LABS: INR 1.1; Prothrombin Time 14.1 Seconds (11.1-14.7)
[2023-03-20 17:40] VITALS: BP 120/74; PULSE 92; RESP 18; TEMP 37.2; O2SAT 99
== END 2023-03-20 17:41 | disposition home or self-care (01) ==
PROVIDERS: Emergency Provider Emergency Medicine; PCP Nurse Practitioner Adult Health
DX: K11.20 Sialoadenitis, unspecified (principal); I25.10 Atherosclerotic heart disease of native coronary artery without angina pectoris; I25.2 Old myocardial infarction; E11.9 Type 2 diabetes mellitus without complications; E78.5 Hyperlipidemia, unspecified; E66.9 Obesity, unspecified; Z68.26 Body mass index [BMI] 26.0-26.9, adult; Z86.010 Personal history of colon polyps; Z87.891 Personal history of nicotine dependence; Z79.84 Long term (current) use of oral hypoglycemic drugs; Z79.85 Long-term (current) use of injectable non-insulin antidiabetic drugs
CPT/HCPCS: 36415; 70491; 71045; 80053; 85025; 85610; 85730; 99284; Q9967

== ENCOUNTER 2023-09-13 08:33 | Outpatient (CLI) | payer OTHER, SELFPAY ==
[2023-09-13 09:13] LABS: Basophils Absolute Auto 0.1 K/mm3 (0.0-0.1); Basophils Percent Auto 0.6 % (0.2-1.2); Eosinophils Absolute Auto 0.2 K/mm3 (0-0.3); Eosinophils Percent Auto 2.7 % (0-4.4); Hematocrit 58.6 % (42.0-52.0); Hemoglobin 19.2 g/dL (14.0-18.0); Immature Granulocyte Absolute 0.04 K/mm3 (0.00-0.031); Immature Granulocyte Percent A 0.5 % (0-0.5); Lymphocytes Absolute Auto 1.71 K/mm3 (0.9-3.2); Lymphocytes Percent Auto 21.8 % (18.3-44.2); Mean Corpuscular HGB Conc 32.8 g/dl (32-36); Mean Corpuscular Hemoglobin 29.5 pg (26-34); Mean Corpuscular Volume 90.2 fl (80-100); Mean Platelet Volume 8.2 fl (7.4-10.4); Monocytes Absolute Auto 0.6 K/mm3 (0.1-0.6); Monocytes Percent Auto 7.9 % (2.6-8.5); Neutrophils Absolute Auto 5.2 K/mm3 (1.3-6.7); Neutrophils Percent Auto 66.5 % (45.5-73.1); Platelet Count Result 225 k/mm3 (150-375); Red Cell Distribution Width 17.2 % (11.5-14.5); White Blood Count 7.8 K/mm3 (4.5-10.0)
[2023-09-13 09:23] LABS: Alanine Aminotransferase 60 U/L (6-50); Albumin Level 4.6 g/dL (3.5-5.1); Alkaline Phosphatase 86 U/L (38-126); Anion Gap 5 mmol/L (4-12); Aspartate Amino Transferase 61 U/L (17-59); Bilirubin,Total 1.1 mg/dL (0.2-1.3); Blood Urea Nitrogen 13 mg/dL (9-20); Calcium 9.1 mg/dL (8.4-10.2); Carbon Dioxide 31 mmol/L (22-30); Chloride 104 mmol/L (98-107); Cholesterol 150 mg/dL (0-200); Estimated Glomerular Filt Rate > 60; Glucose 100 mg/dL (65-110); HDL Direct 43 mg/dL; Potassium 4.7 mmol/L (3.4-5.0); Sodium 140 mmol/L (137-145); Triglycerides 117 mg/dL (<150)
[2023-09-13 09:34] LABS: LDL Cholesterol Direct 87 mg/dL
[2023-09-13 09:54] LABS: Prostate Specific Antigen 0.5 ng/mL (< OR = 4.0)
[2023-09-13 10:06] LABS: Hemoglobin A1C 5.7 % (<5.7)
[2023-09-13 10:26] LABS: Creatinine Urine 134.8 mg/dL
[2023-09-13 10:31] LABS: MALB Creatinine Ratio 7.3 mg/g (0-30); Microalbumin Urine Random 9.9 mg/L (0-16.7)
[2023-09-16 13:08] LABS: Testosterone Free 92.2 pg/mL (35.0-155.0); Testosterone Total 483 ng/dL (250-1100)
== END 2023-09-13 08:34 | disposition home or self-care (01) ==
PROVIDERS: PCP Nurse Practitioner Adult Health; Visit Provider Family Medicine
DX: Z12.5 Encounter for screening for malignant neoplasm of prostate (principal); I10 Essential (primary) hypertension; E11.9 Type 2 diabetes mellitus without complications; E29.1 Testicular hypofunction
CPT/HCPCS: 36415; 80053; 80061; 82043; 83036; 84153; 84402; 84403; 85025; G0103

== ENCOUNTER 2024-02-11 08:01 | Outpatient (CLI) | payer OTHER, SELFPAY ==
[2024-02-11 08:43] LABS: Basophils Absolute Auto 0.1 K/mm3 (0.0-0.1); Basophils Percent Auto 0.6 % (0.2-1.2); Eosinophils Absolute Auto 0.5 K/mm3 (0-0.3); Eosinophils Percent Auto 5.6 % (0-4.4); Hematocrit 55.8 % (42.0-52.0); Hemoglobin 18.8 g/dL (14.0-18.0); Immature Granulocyte Absolute 0.02 K/mm3 (0.00-0.031); Immature Granulocyte Percent A 0.2 % (0-0.5); Lymphocytes Absolute Auto 2.62 K/mm3 (0.9-3.2); Lymphocytes Percent Auto 30.7 % (18.3-44.2); Mean Corpuscular HGB Conc 33.7 g/dl (32-36); Mean Corpuscular Hemoglobin 29.9 pg (26-34); Mean Corpuscular Volume 88.9 fl (80-100); Mean Platelet Volume 8.7 fl (7.4-10.4); Monocytes Absolute Auto 0.8 K/mm3 (0.1-0.6); Monocytes Percent Auto 9.6 % (2.6-8.5); Neutrophils Absolute Auto 4.6 K/mm3 (1.3-6.7); Neutrophils Percent Auto 53.3 % (45.5-73.1); Platelet Count Result 237 k/mm3 (150-375); Red Blood Count 6.28 M/mm3 (4.6-6.20); Red Cell Distribution Width 17.1 % (11.5-14.5); White Blood Count 8.5 K/mm3 (4.5-10.0)
[2024-02-11 08:45] LABS: Cholesterol 146 mg/dL (0-200); HDL Direct 42 mg/dL; Triglycerides 115 mg/dL (<150)
[2024-02-11 08:50] LABS: Alanine Aminotransferase 57 U/L (6-50); Albumin Level 4.4 g/dL (3.5-5.1); Alkaline Phosphatase 80 U/L (38-126); Anion Gap 8 mmol/L (4-12); Aspartate Amino Transferase 62 U/L (17-59); Bilirubin,Total 0.9 mg/dL (0.2-1.3); Blood Urea Nitrogen 14 mg/dL (9-20); Calcium 9.2 mg/dL (8.4-10.2); Carbon Dioxide 31 mmol/L (22-30); Chloride 103 mmol/L (98-107); Estimated Glomerular Filt Rate > 60; Glucose 104 mg/dL (65-110); Potassium 4.4 mmol/L (3.4-5.0); Sodium 142 mmol/L (137-145)
[2024-02-11 08:56] LABS: LDL Cholesterol Direct 73 mg/dL
[2024-02-11 09:44] LABS: Creatinine Urine 96.3 mg/dL
[2024-02-11 09:47] LABS: MALB Creatinine Ratio 6.9 mg/g (0-30); Microalbumin Urine Random 6.6 mg/L (0-16.7)
[2024-02-11 09:58] LABS: Free T4 Free Thyroxine 1.06 ng/mL (0.78-2.19); Vitamin D 25 Hydroxy 62.6 ng/mL
== END 2024-02-11 08:02 | disposition home or self-care (01) ==
PROVIDERS: PCP Registered Nurse; Referring Provider Internal Medicine Cardiovascular Disease; Visit Provider Nurse Practitioner Family
DX: E66.9 Obesity, unspecified (principal); E11.9 Type 2 diabetes mellitus without complications; E78.5 Hyperlipidemia, unspecified; R74.8 Abnormal levels of other serum enzymes
CPT/HCPCS: 36415; 80053; 80061; 82043; 82306; 82607; 84439; 84443; 85025

== ENCOUNTER 2024-09-04 08:22 | Outpatient (CLI) | payer OTHER, SELFPAY ==
--- OUTSIDE RECORDS SUMMARY | 2024-09-04 08:27 | XMS_ITS | Data Portability ---
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 He has got moderate relief for the 1st 2. I gave a 3rd well without difficulty in the right knee. He has received some benefit but not complete we will continue with exercise anti-inflammatory medication and time. He will also try to lose weight as he is fairly significantly obese discussed. [email or web address] Not available 07/06/2022 15:56:18 08/31/2022 08/31/2022 The patient has severe primary osteoarthritis right knee joint. At his request under sterile conditions I injected the patient's right knee joint in the office with 4 cc 0.5% ropivacaine and 20 mg of Kenalog. Patient tolerated procedure well. I will see him back as needed. We did talk about total knee arthroplasty in detail today I answered several questions about this for him. He voiced understanding and agrees with above plan. Not available 08/31/2022 15:07:04 02/25/2023 02/25/2023 By previous x-ra y exam the patient is noted to have moderately severe primary osteoarthritis of the right knee joint. At his request under sterile conditions I injected the patient's right knee joint in the office with 4 cc 0.5% bupivacaine and 20 mg of Kenalog. Patient tolerated the procedure well. I will see him back as needed. He voiced understanding agrees above plan call for any further problems difficulties or questions. Not available 02/25/2023 12:32:14 07/19/2023 07/19/2023 The patient has severe patellofemoral articulation osteoarthritis of both knees moderate in the medial compartment regions of both knees. His right knee is hurting him today after overuse type injury. We talked about treatment options for this in detail today we will get him a refill of meloxicam he has not taken this for a year he will take 15 mg daily he also wanted a shot of cortisone therefore under sterile conditions I injected the patient's right knee joint in the office with 4 cc of 0.5% Marcaine and 20 mg of Kenalog. Patient tolerated the procedure well. I will see him back in 3 months if necessary, the patient will avoid the ladder climbing and other activities aggravate his symptoms. 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 He will use this as needed. He voiced understanding agrees above plan call for any further problems difficulties or questions. For now he would like to avoid total knee arthroplasty we have discussed this in detail as well. Not available 07/19/2023 16:23:58 08/03/2024 08/03/2024 The patient has moderately severe primary osteoarthritis of the right knee more significant in the patellofemoral articulation which is more severe. We talked about treatment options today in detail I am going to give him a refill on his meloxicam 15 mg daily he will take this on a regular basis he also wanted to proceed with cortisone therefore under sterile conditions I injected the patient's right knee joint in the office with 4 cc 0.5% bupivacaine and 20 mg of Kenalog. Patient tolerated procedure well. He will follow up as needed we can do this again in 3 months if necessary he voiced understanding and agreed with the above plan he will call for any further problems difficulties or questions. For now he is going to avoid total knee arthroplasty he gets by with conservative measures we talked about this. Not available 08/03/2024 15:57:29 Plan of Treatment Reminders Order Date Submit Date Provider Last Modified By Organization Details Last Modified Time Details Appointments None recorded. Lab None recorded. Referral None recorded. Procedures injection/a spiration joint/bursa (PROC) 2024 025 [email or web address] In-Office Order, Internal Use Only DO Not Attach Compendium DO Not Attach Compendium, Do Not Delete/merge, [id number] 15:12:39 injection/a spiration joint/bursa (PROC) - in office procedure, administere d by provider 2023 024 [email or web address] In-Office Order, Internal Use Only DO Not Attach Compendium DO Not Attach Compendium, Do Not Delete/merge, [id number] 4 15:54:41 injection/a spiration joint/bursa (PROC) 2022 023 [email or web address] In-Office Order, Internal Use Only DO Not Attach Compendium DO Not Attach Compendium, Do Not Delete/merge, [id number] 3 12:05:43 injection/a spiration joint/bursa (PROC) - in office procedure, administere d by provider 2022 023 [email or web address] In-Office Order, Internal Use Only DO Not Attach Compendium DO Not Attach Compendium, Do Not Delete/merge, [id number] 3 14:31:59 knee aspiration/ injection (PROC) 2022 023 [email or web address] In-Office Order, Internal Use Only DO Not Attach Compendium DO Not Attach Compendium, Do Not Delete/merge, [id number] 3 15:15:59 Surgeries None recorded. Imaging XR, knee 2024 025 [facility] [place], [address], [place], [address], 5 16:28:54 XR, knee 2023 024 [facility] [place], [address], [place], [address], 4 17:17:00 Medication Orders bupivacaine HCl 0.5 % (5 mg/mL) injection solution [address]3259, [address] [place], [address], 5 15:14:31 Kenalog 10 mg/mL suspension for injection [address]3259, [address] [place], [address], 5 15:14:31 meloxicam 15 mg tablet [address]3259, [address] [place], [address], 5 16:14:59 Kenalog 10 mg/mL suspension for injection [address] [facility], [address] [place] [address], [id number], 4 17:17:00 Marcaine (PF) 0.5 % (5 mg/mL) injection solution [address] [facility]47, [address] [place] [address], [id number], 5 15:21:04 meloxicam 15 mg tablet [address] [facility]63987, [address] [place] [address], [id number], 4 17:17:00 bupivacaine HCl 0.5 % (5 mg/mL) injection solution [address] [facility]45882, [address] [place] [address], [id number], 4 15:38:50 Kenalog 10 mg/mL suspension for injection 2022 023 [email or web address] [facility]300, [address] [place], [place], [id number], 4 15:39:48 Kenalog 10 mg/mL suspension for injection 2022 023 [email or web address] [facility], [address], [place], [id number], 4 15:39:48 ropivacaine (PF) 5 mg/mL (0.5 %) injection solution 2022 023 [email or web address], [address] [place], [place], [id number], 4 15:40:42 Euflexxa 10 mg/mL (mw 2.4-3.6 million) intra-artic ular syringe 2022 023 [email or web address] [facility], [address], [place], [id number], 4 15:39:28 Patient TargetsNo targets recorded. Patient InstructionsNo instructions recorded. Reason for Referral None Reported. Results Created Date Observation Date Name Description Value Unit Range Abnormal Flag Note LastModifiedBy Organization Detail LastModifiedTime 06/11/19 23 XR, knee No observ ation record ed. [facility] [place] [address], [place], [address], 06/10/2022 16:08:20 07/19/19 24 XR, knee No observ ation record ed. [facility] [place] [address], [place], [address], 07/19/2023 16:24:53 08/04/19 25 XR, knee No observ ation record ed. [facility] [place] [address], [place], [address], 08/03/2024 16:28:53 Result Notes None recorded. Problems Name Problem SNOMED Code Status Onset Date Resolution Date Notes Provider Name and Address Organization Details Recorded Time Metatarsal nakia 15870528 Active 2021 Not Available [facility] 3 10:43:33 Osborne's neuroma of right foot 1973200093747 08 Active 2020 Not Available [facility] 10:43:33 Pain in right foot 6145142750281 07 Active 2020 Not Available [facility] 10:43:33 Neuropathy due to type 2 diabetes mellitus 0066659055083 06 Active 2021 Not Available [facility] 10:43:33 Acquired right hallux rigidus 3021293128864 00 Active 2021 Not Available [facility] 10:43:33 Foot pain 11669861 Active 2021 Not Available [facility] 3 10:43:33 Pain of right knee joint 3144803192015 00 Active 2022 Bety Carroll, ATC L null, [place] [facility] [employer] 3 15:30:47 Osteoarthr itis of right knee joint 5751420416631 00 Active 2022 WAYLON Copeland [address] [facility], [facility] [address], [place], [address] , [employer] 3 16:08:38 Problem Notes None recorded. Procedures Surgical History Date Name Laterality Status Provider Name and Address Organization Details Recorded Time 07/06/2022 Ortho - Visc completed Femi Corley MD [address] [facility], [facility] [address], [place], [address], [employer] 07/06/2022 15:52:51 Imaging Results None recorded. Procedure Notes None recorded. Medical Equipment None Reported. Allergies No known drug allergies Medications Name Sig Start Date Stop Date Status Note LastModified by Organization Details LastModified Time cyclobenzap rine 10 mg tablet TK 1 T PO TID PRF MUSCLE SPASM 07/18 completed Not Available Not Available Not Available atorvastati n 40 mg tablet TAKE 1 TABLET BY MOUTH EVERY DAY 07/18 completed Not Available Not Available Not Available metformin 500 mg tablet FOR INDIGESTI ON 07/18 completed Not Available Not Available Not Available prednisone 10 mg tablet 07/18 completed Not Available Not Available Not Available azithromyci n 250 mg tablet TAKE 2 TABLETS BY MOUTH FOR 1 DAY THEN TAKE 1 TABLET BY MOUTH EACH DAY FOR 4 DAYS 07/18 completed Not Available Not Available Not Available glyburide 2.5 mg tablet TAKE 1 TABLET BY MOUTH EVERY DAY 07/18 completed Not Available Not Available Not Available hydrocodone 5 mg-acetamin ophen 325 mg tablet TAKE 1 TABLET BY MOUTH EVERY DAY 07/18 completed Not Available Not Available Not Available meloxicam 15 mg tablet TAKE 1 TABLET BY MOUTH EVERY DAY active Not Available Not Available No t Available bupivacaine HCl 0.5 % (5 mg/mL) injection solution Take 20 mg by injection route. 2024 active Not Available Not Available Not Avai lable amlodipine 5 mg tablet TAKE 1 TABLET BY MOUTH EVERY DAY active Not Available Not Available No t Available aspirin 81 mg tablet,andrew yed release TAKE 1 TABLET BY MOUTH ONCE DAILY 07/18 completed Not Available Not Available Not Available sildenafil 100 mg tablet TAKE ONE TAB BY MOUTH 45MIN PRIOR TO SEXUAL ACTIVITY active Not Available Not Available No t Available prednisone 10 mg tablets in a dose pack Take 1 tab by mouth, 3 times a day for 3 daysTake 1 tab by mouth 2 times a day for 2 daysTake 1 tab by mouth once a day for 1 day 07/18 completed Not Available Not Available Not Available Kenalog 10 mg/mL suspension for injection Take 20 mg by injection route. 2024 active [facility]: 0003- [phone]- 20 Not Available Not Available Not Available benzonatate 100 mg capsule TAKE 1 CAPSULE BY MOUTH EVERY 8 HOURS NEEDED 07/18 completed Not Available Not Available Not Available cephalexin 500 mg capsule TAKE 1 CAPSULE BY MOUTH EVERY 12 HOURS 07/18 completed Not Available Not Available Not Available erythromyci n 5 mg/gram (0.5 %) eye ointment APPLY 1/2 INCH OF OINTMENT INTO EACH EYE FOUR TIMES DAILY 07/18 completed Not Available Not Available Not Available aspirin 81 mg chewable tablet CHEW AND SWALLOW 1 TABLET BY MOUTH DAILY AT 8 AM active Not Available Not Available No t Available ergocalcife rol (vitamin D2) 1,250 mcg (50,000 unit) capsule TAKE 1 CAPSULE BY MOUTH ONCE A WEEK FOR 12 WEEKS active Not Available Not Available No t Available testosteron e cypionate 200 mg/mL intramuscul ar oil INJECT INTRAMUSC ULARLY 200MG/ML EVERY OTHER WEEK FOR NEXT 6 MONTHS. active Not Available Not Available No t Available albuterol sulfate HFA 90 mcg/actuati on aerosol inhaler INHALE 2 PUFFS BY MOUTH EVERY 4 HOURS NEEDED 07/18 completed Not Available Not Available Not Available fluticasone propionate 50 mcg/actuati on nasal spray,suspe nsion SPRAY 2 SPRAYS INTO EACH NOSTRIL EVERY DAY active Not Available Not Available No t Available naproxen 500 mg tablet TAKE 1 TABLET BY MOUTH TWICE DAILY 07/18 completed Not Available Not Available Not Available amoxicillin 875 mg-potassiu m clavulanate 125 mg tablet TAKE 1 TABLET BY MOUTH TWICE A DAY 08/03 completed Not Available Not Available Not Available amoxicillin 500 mg-potassiu m clavulanate 125 mg tablet TAKE 1 TABLET BY MOUTH EVERY 8 HOURS 07/18 completed Not Available Not Available Not Available cyclobenzap rine 5 mg tablet TAKE 1 TABLET BY MOUTH THREE TIMES DAILY 07/18 completed Not Available Not Available Not Available rosuvastati n 5 mg tablet TAKE ONE TABLET BY MOUTH DAILY active Not Available Not Available No t Available Marcaine (PF) 0.5 % (5 mg/mL) injection solution Take 20 mg by injection route. 08/03 completed Not Available Not Available Not Available Euflexxa 10 mg/mL (mw 2.4-3.6 million) intra-artic ular syringe Inject 2.5 mL by intra-art icular route for 35 days. 07/18 completed Not Available Not Available Not Available lidocaine (PF) 10 mg/mL (1 %) injection solution In office injection administe red by the provider 07/18 completed [facility]: [phone]- [phone] Not Available Not Available Not Available Brilinta 90 mg tablet TAKE 1 TABLET BY MOUTH EVERY 12 HOURS 07/18 completed Not Available Not Available Not Available ropivacaine (PF) 5 mg/mL (0.5 %) injection solution in office 07/18 completed [facility] [phone] -[phone]- [phone] Not Available Not Available Not Available Jardiance 25 mg tablet TAKE 1 TABLET BY MOUTH EVERY DAY IN THE MORNING active Not Available Not Available No t Available Ozempic 1 mg/dose (4 mg/3 mL) subcutaneou s pen injector INJECT 1 MG UNDER THE SKIN EVERY WEEK 07/18 completed Not Available Not Available Not Available Ozempic 2 mg/dose (8 mg/3 mL) subcutaneou s pen injector INJECT 2 MG (0.75 ML) SUBCUTANE OUSLY WEEKLY FOR 90 DAYS active Not Available Not Available No t Available Vitals Date Recorded Body height Body mass index (BMI) Body weight Provider Name and Address Organization Details Last Updated DateTime 07/06/2022 175.26 cm 45.8 kg/m2 278451.63 g Margy Caballero CNA [employer] 07/06/2022 15:14:10 Date Recorded Body height Body mass index (BMI) Body weight Provider Name and Address Organization Details Last Updated DateTime 07/19/2023 175.26 cm 25.8 kg/m2 92920.66 g Margy Caballero CNA [employer] 07/19/2023 15:37:05 Date Recorded Body height Body mass index (BMI) Body weight Provider Name and Address Organization Details Last Updated DateTime 08/03/2024 175.26 cm 25.8 kg/m2 72084.66 g Margy Caballero [employer] 08/03/2024 15:20:31 Date Recorded Body height Body mass index (BMI) Body weight Provider Name and Address Organization Details Last Updated DateTime 08/31/2022 175.26 cm 44.3 kg/m2 829644.71 g HEBER Rousseau [employer] 08/31/2022 14:28:51 Date Recorded Body height Body mass index (BMI) Body weight Provider Name and Address Organization Details Last Updated DateTime 02/25/2023 175.26 cm 27.3 kg/m2 57275.59 g Ann Marie Sung [place] - [facility] [employer] 02/25/2023 12:00:20 Social History Question Answer Notes LastModified by Organizat [email or web address] Details LastModified Time Tobacco Smoking Status Former Smoker Not Available [employer] 06/09/2022 10:41:33 When Did You Quit Smoking? 6-10yearssin [facility] [employer] [id number] Information not available 06/09/2022 What Was The Date Of Your Most Recent Tobacco Screening? 12/25/2020 [id number] Information not available 06/09/2022 Sex: Unknown Functional Status Question Answer Note LastModified by Organizat [email or web address] Details LastModified Time What is your level of alcohol consumption? Occasional [id number] Information not available 06/09/2022 Mental Status None recorded. Family History Relationship Description Onset Age of this Age Resolved Age Notes LastModified by Organization Details LastModified Time Unspecified Relation Hypertensive disorder [id number] Not available 06/09/2022 10:41:50 Mother Hypertensive disorder [email or web address] Not available 2023 15:41:05 Mother Diabetes mellitus [email or web address] Not available 2023 15:41:32 Unspecified Relation Heart disease [email or web address] Not available 05/2022 15:29:44 Sister Diabetes mellitus MULTIP LE SISTER S [email or web address] Not available 07/19/2023 15:41:32 Medical History Condition Response KIDNEY STONES Y CORONARY ARTERY DISEASE (CAD) Y ARTHRITIS Y DIABETES, TYPE Y Past Encounters Encounter ID Performer Location Encounter Start Date Encounter Closed Date Diagnosis/Indication Diagnosis SNOMED-CT Code Diagnosis ICD10 Code Diagnosis Note [id number] WAYLON Copeland [facility] [place] [address] [place] [address] 12/25/2020 00:00:00 12/25/2020 16:29:04 [id number] [facility] [place] [address] [place] [address] 01/22/2021 00:00:00 01/26/2021 23:11:16 [id number] Femi Corley MD [facility] [place] [address] [place] [address] 02/03/2021 00:00:00 02/03/2021 16:33:38 [id number] [facility] [place] [address] [place] [address] 02/26/2021 00:00:00 03/01/2021 19:24:15 [id number] [facility] [place] [address] [place] [address] 11/02/2021 00:00:00 11/03/2021 12:12:31 [id number] [facility] [place] [address] [place] [address] 11/30/2021 00:00:00 11/30/2021 11:04:45 [id number] WAYLON Copeland [facility] [place] [address] [place] [address] 06/10/2022 15:15:34 06/10/2022 15:59:29 Pain of right knee joint 8241286046 74066 M25.561 Osteoarthr itis of right knee joint 0762628103 96170 M17.11 [id number] Femi Corley MD [facility] [place] [address] [place] [address] 06/22/2022 15:36:07 06/22/2022 15:56:31 Pain of right knee joint 5181541577 85865 M25.561 Osteoarthr itis of right knee joint 4736639399 68640 M17.11 [id number] Femi Corley MD [facility] [place] [address] [place] [address] 06/29/2022 15:16:57 06/29/2022 15:51:39 Pain of right knee joint 2285567991 81684 M25.561 Osteoarthr itis of right knee joint 4484439508 79190 M17.11 [id number] Femi Corley MD [facility] [place] [address] [place] [address] 07/06/2022 15:11:28 07/06/2022 16:18:04 Osteoarthritis of right knee joint 3605066668 01167 M17.11 Pain of ri ght knee joint 4826935813 98453 M25.561 [id number] Femi Corley MD [facility] [place] [address] [place] [address] 08/31/2022 14:21:28 08/31/2022 15:08:17 Osteoarthritis of right knee joint 6465083710 65263 M17.11 Pain of ri ght knee joint 1390111511 96219 M25.253 [id number] Felice Zamorano MD [facility] [place] [address] [place] [address] 02/25/2023 11:56:53 02/25/2023 12:19:50 Osteoarthritis of right knee joint 1495396611 50728 M17.11 Pain of ri ght knee joint 0393942683 54850 M25.526 [id number] Rafael Hassan MD [facility] [place] [address] [place] [address] 07/19/2023 15:08:01 07/19/2023 16:35:13 Osteoarthritis of right knee joint 1908296695 23591 M17.11 Pain of ri ght knee joint 4171130389 06284 M25.634 [id number] Rafael Hassan MD [facility] [place] [address] [place] [address] 08/03/2024 15:05:33 08/03/2024 15:49:50 Osteoarthritis of right knee joint 3581384133 13459 M17.11 Pain of ri ght knee joint 2049478144 12427 M25.561 Health Concerns Section Related Observation LastModified by Organization Detai ls LastModified Time None Recorded Concern Status LastModified by Organization Details LastModified Time None Recorded Advance Directives Directive None Recorded Payers Encounter Date Sequence Insurance Name Policy Number Policy Valverde Covered Member ID Valverde Member ID Guarantor Name 07/06/2022 1 [employer] (POS II) Benigno Meredtih Nicolas [id number] Benigno Nicolas 08/31/2022 1 [employer] (POS II) Benigno Meredith Nicolas [id number] Benigno Nicolas 02/25/2023 1 [employer] (POS II) Benigno Meredith Nicolas [id number] Benigno Nicolas 07/19/2023 1 [employer] (POS II) Benigno Meredith Nicolas [id number] Benigno Nicolas 08/03/2024 1 [employer] (POS II) Benigno Meredith Nicolas [id number] Benigno Nicolas Notes Date Note Type Note Provider Name and Address Organization Details Recorded Time 07/06/2022 text/html patient returns for Euflexxa injection number 2 right knee. He has moderately severe primary osteoarthritis particularly medial and patellofemoral compartments he is trying to avoid total knee arthroplasty. Today denies any erythema heat effusion or signs of infection. Femi Corley MD [address] [employer], [place], [address], [place] 07/06/2022 15:56:41 08/31/2022 text/html Patient returns for an injection in his right knee. The patient has severe primary osteoarthritis here, couple of months ago he had gel shot series which gave him mild to moderate relief he states when he sits too long and tries to get up and get going he has significant start-up pain aching and pain with almost any activity. He is considering total knee arthroplasty but is trying to get by with conservative measures for now. His BMI is a little high at 45, he knows that he needs to lose some weight as well. He would do this to consider the total knee arthroplasty. In the meantime he would like a shot of cortisone today. Denies any new symptoms no new trauma or injury no erythema heat effusion or signs of infection. WAYLON Copeland [address] [facility], [place], [address], [place] 08/31/2022 15:07:17 02/25/2023 text/html Patient returns complaining of right knee pain. He has fairly severe osteoarthritis in the patellofemoral articulation the right knee which is essentially [id number] has 1-2 mm remaining in the medial compartment right knee as well. He has similar findings bilaterally left knee does not bother him too much the right knee is like a toothache that he can get rid of. He states the pain is about 9 on a scale 1-10 today. The shot of cortisone back in August of this year gave him excellent relief the last couple of weeks his knee pain has flared up once again. He is thinking about total knee arthroplasty somewhere down the road but for now he would like another shot of cortisone. Denies any new trauma or injury no effusion or swelling no erythema heat or other signs of infection. He is aware that his BMI is a bit too high for total knee arthroplasty and that he would have to lose some weight. We have talked about this in detail previously. He is aware and will work on that. WAYLON Copeland [address] [facility], [facility] [address], [place], [address], [place] [facility] 02/25/2023 12:32:26 07/19/2023 text/html Patient returns complaining of right knee pain. He has had some chronic issues with the right knee has severe primary osteoarthritis of the patellofemoral articulation moderately advanced narrowing in the medial compartment this is present in both knees but the right knee is the only 1 that really bothers him. States recently he was doing well until he was doing some ladder climbing to do some painting around the house and this has aggravated his knee significantly. He states it has like a throbbing toothache he can not sleep at night he has trouble squatting kneeling going up and down stairs. His last cortisone injection was back in February of 2023 and was doing well until this overuse episode. A lot of the pain is localized to the anterior knee in the patellofemoral articulation occasionally the knee will swell a little bit on him the past couple weeks it has been quite significant In terms of the pain. He comes in today requesting new evaluation treatment of his right knee pain as described he states the left knee feels good.A new past medical history sheet was reviewed and signed on the intake sheet of today's date drug allergies current medications family social history previous surgical history 10 point review of systems was reviewed and discussed in detail today with the patient. The patient has previously been on oral anti-inflammatory medication about a year ago but states he ran out never got a refill so we talked about refilling his meloxicam today as well. WAYLON Copeland [address], [place], [address], [employer] 07/19/2023 16:25:19 08/03/2024 text/html The patient retu rns complaining of right knee pain. I have not seen him for more than a year. He has known significant primary osteoarthritis of the right knee joint shot of cortisone a year ago gave him good relief for several months. His knee pain has slowly creeping back in he is now about a 6 on a scale of 1-10 in terms of pain. He is on his feet quite a bit at work this aggravates his knee somewhat. He does take meloxicam daily he has run out of this he would like a refill on this also. Denies any new problems with the knee no new trauma or injury no effusion or swelling no locking or catching. He has done some light duty type work to help with his knee recently his knee has really started bothering her again he would like to try another shot of cortisone today. New past medical history sheet was reviewed and signed on the intake sheet of today's date drug allergies current medications family social history previous surgical history 10 point review of systems was reviewed and discussed in detail today with the patient. WAYLON Copeland [address], [place], [address], [employer] 08/03/2024 16:29:07
--- OUTSIDE RECORDS SUMMARY | 2024-09-04 08:27 | XMS_ITS | Clinical Summary ---
Author Organization [facility] Address [address] [place] [address] Care Team Providers Care Tinning Machine Set Up Operator Name Role Phone Juve Torres MD Primary Care Provider Source Comments [facility],non-owned Affiliates and Associated Physician Practices is amultiple site organization consisting of ambulatory clinics and hospital sitesin [place], [place] and [place]. This disclosure is being madepursuant to the Care Everywhere program and may not contain all information available regarding this patient. Last updated [employer] [facility] Allergies No known active allergies Medications * Be aware that medications may not be up to date on this document. Alwaysverify current medications with the patient. amLODIPine (Norvasc) 5 MG tablet Take 1 (one) tablet by mouth once daily 4 Active aspirin EC (Ecotrin) 81 MG tablet Take 1 (one) tablet by mouth once daily Active Jardiance 25 MG tablet Take 1 (one) tablet by mouth every morning 3 Active vitamin D, ergocalciferol , (Drisdol) 1.25 MG (63233 UT) capsule Take 1 (one) capsule by mouth every 7 days 4 Active rosuvastatin (Crestor) 5 MG tablet Take 1 (one) tablet by mouth once daily 3 Active Ozempic, 2 MG/DOSE, 8 MG/3ML pen Inject 2 (two) mg subcutaneously every 7 days 4 Active sildenafil (Viagra) 100 MG tablet Take 1 (one) tablet by mouth as needed 4 Active testosterone cypionate (Depo-Testoste dread) 200 MG/ML injection Inject 1 mL into muscle every 14 days 4 Active meloxicam (Mobic) 15 MG tablet Take 1 (one) tablet by mouth once daily 4 Active BUPivacaine PF (Marcaine PF) 0.5 % injection Inject into muscle as needed 4 Active Active Problems Problem Noted Date Diagnosed Date Right facial swelling 11/14/2008 Immunizations Immunization Administration Dates Next Due INFLUENZA VACCINE, ADJUVANTE D, QUADR. 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 Gender Identity Not on file Sexual Orientation Not on file Last Filed Vital Signs Vital Sign Reading Time Taken Comments Blood Pressure 121/79 09/13/2023 2:01 PM CDT Pulse 83 09/13/2023 2:01 PM CDT Temperature 36.5 C (97.7 F) 08/15/2023 10:09 AM CDT Respiratory Rate 20 08/15/2023 10:30 AM CDT Oxygen Saturation 97% 08/15/2023 10:30 AM CDT Inhaled Oxygen Concentration - - Weight 121.6 kg (268 lb) 09/13/2023 2:01 PM CDT Height 175.3 cm (5' 9 ) 09/13/2023 2:01 PM CDT Body Mass Index 39.58 09/13/2023 2:01 PM CDT Plan of Treatment Health Maintenance Due Date Last Done Comments COLOGUARD (AGES 45-75) - COLON CA SCREENING 1955 COLON MONITORING 1955 COLONOSCOPY - COLON CA SCREENING 1955 CT COLONOGRAPHY - COLON CA SCREENING 1955 Colorectal Cancer Screening 1955 FIT - COLON CA SCREENING 1955 FLEX SIG - COLON CA SCREENING 1955 HEPATITIS C SCREENING 10/08/1973 DTAP/TDAP/TD VACCINES (1 - Tdap) 10/12/1974 Respiratory Syncytial Virus (RSV) Vaccine Pt: or over 60 yrs (1 - Risk 60-74 years 1-dose series) 2015 AAA SCREENING 10/12/2020 COVID-19 VACCINE ( season) 2023 01/30/2023, 02/02/2021, 07/15/2020, Additional history exists DEPRESSION SCREENING 04/11/2024 INFLUENZA VACCINE (Season Ended) 2024 12/21/2022 SCREENING FOR DIABETES 08/14/2026 , 08/02/2023, 11/14/2008 PNEUMOCOCCAL VACCINE 50+ Completed 12/21/2022 ZOSTER VACCINE Completed 02/25/2023, 12/21/2022 HEPATITIS B VACCINE Aged Out No longe r eligible based on patient's age to complete this topic HIB VACCINE Aged Out No longer eligi ble based on patient's age to complete this topic HPV VACCINE Aged Out No longer eligi ble based on patient's age to complete this topic MENINGOCOCCAL (Group B) VACCINE SHARED DECISION-MAKING Aged Out No longer eligible based on patient's age to complete this topic MENINGOCOCCAL GROUPS A/C/Y/W VACCINE Aged Out No longer eligible based on patient's age to complete this topic Goals Goal Patient Goal Type Associated Problems Recent Progress Patient-Stated? Author Mobility General No Chelle Earl, SANTIAGO Note: Expected end date: 03/26/2029 The goal is to maintain or improve your mobility at the optimum level for you. Interventions: Procedures Procedure Name Priority Date/Time Associated Diagnosis Comments GLUCOSE - POINT OF CARE Routine 08/15/2023 6:09 AM CDT from Last 3 Months or Most Recently Relevant to Health Maintenance Results * GLUCOSE - POINT OF CARE (08/15/2023 6:09 AM CDT) Glucose WB/POC 103 70 - 115 mg/dL 08/15/2023 6:09 AM CDT [facility] Specimen Type Venous 08/15/2023 6:09 AM CDT [facility] Blood BLOOD SPECIMEN / Unknown 08/15/2023 6:09 AM CDT 08/15/2023 6:09 AM CDT us Toribio Gonzalez MD LAB - POINT OF CARE ORDER JENS Final Result [facility] [address] [place] [address], [facility] [phone] from Last 3 Months or Most Recently Relevant to Health Maintenance Insurance [employer]IC AETNA AETNA AETNA PAY[employer]IC PA[employer] [address] [place] [id number] Care Teams Tinning Machine Set Up Operator Relationship Specialty Start Date End Date Juve Torres MD [address] [place] [address] PCP - General 04/13/18
--- OUTSIDE RECORDS SUMMARY | 2024-09-04 08:27 | XMS_ITS | Encounter Summary ---
Author Organization [facility] Address [address] [place] [address] Care Team Providers Care Medical Lab Specialist Name Role Phone Unavailable Primary Care Provider Unavailabl e Encounter Details Date Type Department Care Team (Latest Contact Info) Description 05/18/2006 Inpatient Historical [facility] Roderick Cheema Other Chest Pain (Primary Dx) Social History Tobacco Use Types Packs/Day Years Used Date Smoking Tobacco: Never Assessed Sex and Gender Information Value Date Recorded Sex Assigned at Not on file Legal Sex Male 5:23 AM PRODUCTION TECH Gender Identity Not on file Sexual Orientation Not on file documented as of this encounter Plan of Treatment Not on file documented as of this encounter Procedures Procedure Name Priority Date/Time Associated Diagnosis Comments TSH Routine 05/19/2006 1:00 PM PRODUCTION TECH LIPID PANEL Routine 05/19/2006 1:00 PM PRODUCTION TECH documented in this encounter Results * (ABNORMAL) LIPID PANEL (05/19/2006 1:00 PM PRODUCTION TECH) CHOLESTEROL 201(H) 100 - 199 mg/dL INTERFACE SYSTEM TRIGLYCERIDE 111 10 - 149 mg/dL INTERFACE SYSTEM HDL 48 40 - 59 mg/dL INTERFACE SYSTEM CHOL/HDL RATIO 4.2 2.0 - 5.0 INTER FACE SYSTEM LDL CALCULATED 131(H) <=99 mg/dL INTERFACE SYSTEM LIPID PANEL COMMENT See Below INTERFACE SYSTEM Comment: The adult ATP and pediatric NCEP classifications for lipids are available on the [facility] at: [email or web address] Select: Lab Policies and Procedures Select: Reference Ranges - Lipids 05/19/2006 1:00 PM PRODUCTION TECH Roderick Vega CHEMISTRY ORDERABLES Edited Performing Organization Address City/[facility] [[email or web address]] Co de Phone Number INTERFACE SYSTEM Refer to clinic/hospital department * TSH (05/19/2006 1:00 PM PRODUCTION TECH) TSH 1.93 0.27 - 4.20 uU/mL INTERFACE SYSTEM 05/19/2006 1:00 PM PRODUCTION TECH us Michelle Kaufmann Designsbarry Vega CHEMISTRY ORDERABLES Edited Performing Organization Address City/[facility] [[email or web address]] Co de Phone Number INTERFACE SYSTEM Refer to clinic/hospital department documented in this encounter Visit Diagnoses Diagnosis Other chest pain- Primary documented in this encounter
--- OUTSIDE RECORDS SUMMARY | 2024-09-04 08:27 | XMS_ITS | Clinical Summary ---
Author Organization [facility] Address [address] 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
--- OUTSIDE RECORDS SUMMARY | 2024-09-04 08:27 | XMS_ITS | Encounter Summary ---
Author Organization [facility] Address [address] [place] [address] Care Team Providers Care Post Hole Digging Machine Operator Name Role Phone Unavailable Primary Care Provider Unavailabl e Encounter Details Date Type Department Care Team (Late st Contact Info) Description 05/19/2006 Outpatient Historical [facility]) [address] 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
--- OUTSIDE RECORDS SUMMARY | 2024-09-04 08:27 | XMS_ITS | Clinical Summary ---
Author Organization [facility] Address [address] [address] Phone Care Team Providers Care Service Center Coordinator Name Role Phone Juve Torres MD Primary Care Provider Nahid Mcgraw DO Unavailable [phone] Allergies No known active allergies Medications metFORMIN (GLUCOPHAGE) 500 MG Tablet Take 500 mg by mouth 3 times daily (with meals). Active glyBURIDE (DIABETA) 5 MG Tablet Take 5 mg by mouth daily (with breakfast). 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 Gender Identity Not on file Sexual Orientation Not on file Plan of Treatment Health Maintenance Due Date Last Done Comments Hepatitis C Virus (HCV) Screening 1955 TdaP Immunization 1955 Cologuard 10/12/2005 Immunochemical Fecal Occult Blood 10/12/2005 Pneumococcal Immunization (5 0+ years) (1 of 1 - PCV) 10/12/2005 Zoster Immunization (1 of 2) 10/12/2005 PSA Discussion 10/12/2010 Influenza Immunization (#1) 2023 SARS-COV-2 Immunization ( - season) 2023 Colonoscopy 07/23/2025 07/24/2015 Colorectal Cancer Screening 07/23/2025 Respiratory Syncytial Virus (RSV) Immunization (Adult) (1 - 1-dose 75+ series) 10/12/2030 07/24/2015 Hepatitis B Immunization Aged Out No longer eligible based on patient's age to complete this topic Meningococcal Immunization (ACWY) Aged Out No longer eligible based on patient's age to complete this topic Rotavirus Immunization Aged Out No lo nger eligible based on patient's age to complete this topic Procedures Procedure Name Priority Date/Time Associated Diagnosis Comments COLONOSCOPY Routine 07/24/2015 from Last 3 Months or Most Recently Relevant to Health Maintenance Results * COLONOSCOPY (07/24/2015) us Juve Torres MD PROCEDURE/MINOR SURGICAL ORD ERABLES Final Result from Last 3 Months or Most Recently Relevant to Health Maintenance Care Teams Service Center Coordinator Relationship Specialty Start Date End Date Juve Torres MD [address] [place] [id number] PCP - General Family Medicine 08/12/15 Nahid Mcgraw DO [address] [place] [id number] Gastroenterology 08/12/15
[2024-09-04 08:57] LABS: Basophils Absolute Auto 0.1 K/mm3 (0.0-0.1); Basophils Percent Auto 0.7 % (0.2-1.2); Eosinophils Absolute Auto 0.3 K/mm3 (0-0.3); Eosinophils Percent Auto 3.1 % (0-4.4); Hematocrit 59.4 % (42.0-52.0); Hemoglobin 19.2 g/dL (14.0-18.0); Immature Granulocyte Absolute 0.03 K/mm3 (0.00-0.031); Immature Granulocyte Percent A 0.3 % (0-0.5); Lymphocytes Absolute Auto 1.86 K/mm3 (0.9-3.2); Lymphocytes Percent Auto 21.2 % (18.3-44.2); Mean Corpuscular HGB Conc 32.3 g/dl (32-36); Mean Corpuscular Hemoglobin 29.1 pg (26-34); Mean Corpuscular Volume 90.1 fl (80-100); Mean Platelet Volume 8.1 fl (7.4-10.4); Monocytes Absolute Auto 0.8 K/mm3 (0.1-0.6); Monocytes Percent Auto 8.5 % (2.6-8.5); Neutrophils Absolute Auto 5.8 K/mm3 (1.3-6.7); Neutrophils Percent Auto 66.2 % (45.5-73.1); Platelet Count Result 216 k/mm3 (150-375); Red Blood Count 6.59 M/mm3 (4.6-6.20); Red Cell Distribution Width 17.6 % (11.5-14.5); White Blood Count 8.8 K/mm3 (4.5-10.0)
[2024-09-04 09:18] LABS: Alanine Aminotransferase 61 U/L (6-50); Albumin Level 4.3 g/dL (3.5-5.1); Alkaline Phosphatase 93 U/L (38-126); Anion Gap 6 mmol/L (4-12); Aspartate Amino Transferase 66 U/L (17-59); Bilirubin,Total 1.3 mg/dL (0.2-1.3); Blood Urea Nitrogen 21 mg/dL (9-20); Carbon Dioxide 29 mmol/L (22-30); Chloride 103 mmol/L (98-107); Cholesterol 161 mg/dL (0-200); Estimated Glomerular Filt Rate 56; Glucose 102 mg/dL (65-110); HDL Direct 51 mg/dL; Potassium 4.6 mmol/L (3.4-5.0); Sodium 138 mmol/L (137-145); Triglycerides 128 mg/dL (<150)
[2024-09-04 09:29] LABS: LDL Cholesterol Direct 73 mg/dL
[2024-09-04 09:52] LABS: Prostate Specific Antigen 0.5 ng/mL (< OR = 4.0)
[2024-09-04 10:48] LABS: Free T4 Free Thyroxine 1.08 ng/dL (0.78-2.19)
[2024-09-04 11:02] LABS: Microalbumin Urine Random 9.3 mg/L (0-16.7)
[2024-09-04 11:08] LABS: Creatinine Urine 83.6 mg/dL; MALB Creatinine Ratio 11.1 mg/g (0-30)
== END 2024-09-04 08:23 | disposition home or self-care (01) ==
PROVIDERS: PCP Family Medicine; Referring Provider Registered Nurse; Visit Provider Nurse Practitioner Family
DX: E78.5 Hyperlipidemia, unspecified (principal); I10 Essential (primary) hypertension; E66.9 Obesity, unspecified; E11.9 Type 2 diabetes mellitus without complications
CPT/HCPCS: 36415; 80053; 80061; 82043; 82306; 82607; 84153; 84402; 84403; 84439; 84443; 85025; G0103

== ENCOUNTER 2024-09-29 13:57 | Emergency (ER) | payer OTHER, SELFPAY ==
--- NOTE | ~2024-09-29 | CT_ITS ---
CT abdomen pelvis wo con Ordering provider: Bismark Summers MD History: 68 years Male with . R flank pain . Comparison: None. Technique: CT abdomen and pelvis without IV and without oral contrast. Automated exposure control and iterative reconstruction technique were employed. The dose-length product was 746.25 mGy-cm. Findings: VISUALIZED LOWER CHEST: Dependent atelectatic changes. UPPER ABDOMINAL ORGANS: Liver: Normal. Gallbladder: Contracted. Spleen: Normal. Stomach/duodenum: Normal. Pancreas: Normal. Adrenals: Normal. Kidneys: Bilateral renal hypodensities suggestive of renal cysts the largest in the left kidney measu res 2.1 x 3.4 cm. Minimal fullness of the renal pelvis bilaterally most likely due to extrarenal posi tion.. PELVIC ORGANS: The bladder is underfilled with slightly thickened wall. Evaluation for cystitis advis ed.. BOWEL AND MESENTERY: Colon: No evidence of diverticulitis. Postoperative changes seen in the mid transverse colon. Appendi x is not demonstrated. Small Bowel: Normal. No obstruction. Peritoneum/mesentery: No free air or free fluid. No mesenteric lymphadenopathy. RETROPERITONEUM: Mild atheromatous disease of the abdominal aorta. No retroperitoneal lymphadenopat hy. MUSCULOSKELETAL: Superficial soft tissues: Left fat-containing inguinal hernia. The superficial soft tissues are stacey l. Bones: Age appropriate degenerative changes of the spine. Bilateral sacroiliacs. Bilateral hip osteoa rthritic changes. IMPRESSION: 1. No evidence of appendicitis, diverticulitis or intestinal obstruction. No kidney stones. 2. Bilateral kidney cysts. 3. Diverticulosis of the colon. Reviewed, dictated and finalized at location A. IMPRESSION: 1. No evidence of appendicitis, diverticulitis or intestinal obstruction. No k idney stones. 2. Bilateral kidney cysts. 3. Diverticulosis of the colon.
[2024-09-29 14:02] VITALS: BP 132/93; PULSE 95; RESP 20; TEMP 36.4; O2SAT 99
[2024-09-29 14:18] VITALS: BP 136/66; PULSE 92; RESP 17; TEMP 36.7; O2SAT 96
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
[2024-09-29 15:07] LABS: Add Urine Microscopic? NO; Appearance Urine Clear (Clear); Basophils Percent Auto 0.5 % (0.2-1.2); Bilirubin Urine Negative (Negative); Blood Urine Negative (Negative); Color Urine Yellow (Yellow); Eosinophils Absolute Auto 0.4 K/mm3 (0-0.3); Eosinophils Percent Auto 4.5 % (0-4.4); Glucose Urine UA 3+ mg/dL (Negative); Hematocrit 51.7 % (42.0-52.0); Hemoglobin 17.2 g/dL (14.0-18.0); Immature Granulocyte Absolute 0.02 K/mm3 (0.00-0.031); Immature Granulocyte Percent A 0.2 % (0-0.5); Ketones Urine Negative (Negative); Leukocyte Esterase Ur Negative LEU/UL (Negative); Lymphocytes Absolute Auto 1.88 K/mm3 (0.9-3.2); Lymphocytes Percent Auto 21.7 % (18.3-44.2); Mean Corpuscular HGB Conc 33.3 g/dl (32-36); Mean Corpuscular Hemoglobin 28.9 pg (26-34); Mean Corpuscular Volume 86.9 fl (80-100); Mean Platelet Volume 8.5 fl (7.4-10.4); Monocytes Absolute Auto 0.6 K/mm3 (0.1-0.6); Monocytes Percent Auto 6.9 % (2.6-8.5); Neutrophils Absolute Auto 5.8 K/mm3 (1.3-6.7); Neutrophils Percent Auto 66.2 % (45.5-73.1); Nitrate Urine Negative (Negative); Platelet Count Result 237 k/mm3 (150-375); Protein Urine Negative (Negative); Red Blood Count 5.95 M/mm3 (4.6-6.20); Red Cell Distribution Width 15.1 % (11.5-14.5); Specific Grav Ur 1.035 (1.001-1.035); Urobilinogen Urine 0.2 mg/dL (<2.0); White Blood Count 8.7 K/mm3 (4.5-10.0)
[2024-09-29] MEDS: HYDROmorphone HCL INJ (*CRX) 2 MG/ML VIAL 1 MG IV PUSH (15:12)
[2024-09-29 15:14] VITALS: BP 114/52; PULSE 90; RESP 12; O2SAT 97
[2024-09-29 15:40] LABS: Alanine Aminotransferase 87 U/L (6-50); Albumin Level 4.1 g/dL (3.5-5.1); Alkaline Phosphatase 104 U/L (38-126); Anion Gap 9 mmol/L (4-12); Aspartate Amino Transferase 73 U/L (17-59); Bilirubin,Total 0.7 mg/dL (0.2-1.3); Blood Urea Nitrogen 21 mg/dL (9-20); Calcium 8.9 mg/dL (8.4-10.2); Carbon Dioxide 23 mmol/L (22-30); Chloride 108 mmol/L (98-107); Estimated CRCL calculation 54 ml/min; Estimated Glomerular Filt Rate > 60; Glucose 158 mg/dL (65-110); Lipase 140 U/L (23-300); Potassium 4.2 mmol/L (3.4-5.0); Sodium 140 mmol/L (137-145)
[2024-09-29 16:13] VITALS: BP 115/67; PULSE 83; RESP 13; O2SAT 98
[2024-09-29 17:19] VITALS: BP 130/85; PULSE 86; RESP 13; O2SAT 96
[2024-09-29] MEDS: ACETAMINOPHEN 500 MG TABLET 1000 MG PO (18:27)
[2024-09-29] MEDS: methocarbamoL 750 MG TABLET 1500 MG PO (18:27)
[2024-09-29] MEDS: LIDOCAINE 5% PATCH 1 PATCH TRANSDERM (18:28)
[2024-09-29 18:33] VITALS: BP 117/63; PULSE 86; RESP 18; TEMP 36.6; O2SAT 96
== END 2024-09-29 18:35 | disposition home or self-care (01) ==
PROVIDERS: Emergency Provider Emergency Medicine; PCP Family Medicine
DX: S39.012A Strain of muscle, fascia and tendon of lower back, initial encounter (principal); I10 Essential (primary) hypertension; I25.10 Atherosclerotic heart disease of native coronary artery without angina pectoris; I25.2 Old myocardial infarction; E11.9 Type 2 diabetes mellitus without complications; E78.5 Hyperlipidemia, unspecified; Z86.0100 Personal history of colon polyps, unspecified; Z87.891 Personal history of nicotine dependence; Z79.82 Long term (current) use of aspirin; Z79.85 Long-term (current) use of injectable non-insulin antidiabetic drugs; Z79.84 Long term (current) use of oral hypoglycemic drugs; Z79.890 Hormone replacement therapy; Z79.899 Other long term (current) drug therapy; X58.XXXA Exposure to other specified factors, initial encounter; K57.90 Diverticulosis of intestine, part unspecified, without perforation or abscess without bleeding; N28.1 Cyst of kidney, acquired
CPT/HCPCS: 36415; 74176; 80053; 81003; 83690; 85025; 96374; 99284; A9270; J1171

== ENCOUNTER 2024-12-15 07:41 | Outpatient (CLI) | payer OTHER, SELFPAY ==
--- OUTSIDE RECORDS SUMMARY | 2024-12-15 07:45 | XMS_ITS | Encounter Summary ---
Author Organization [facility] Address 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 Gender Identity Not on file Sexual Orientation Not on file documented as of this encounter Plan of Treatment Not on file documented as of this encounter Procedures Procedure Name Priority Date/Time Associated Diagnosis Comments TSH Routine 05/19/2006 1:00 PM SECURITY POLICE LIPID PANEL Routine 05/19/2006 1:00 PM SECURITY POLICE documented in this encounter Results * (ABNORMAL) LIPID PANEL (05/19/2006 1:00 PM SECURITY POLICE) CHOLESTEROL 201(H) 100 - 199 mg/dL INTERFACE SYSTEM TRIGLYCERIDE 111 10 - 149 mg/dL INTERFACE SYSTEM HDL 48 40 - 59 mg/dL INTERFACE SYSTEM CHOL/HDL RATIO 4.2 2.0 - 5.0 INTER FACE SYSTEM LDL CALCULATED 131(H) <=99 mg/dL INTERFACE SYSTEM LIPID PANEL COMMENT See Below INTERFACE SYSTEM Comment: The adult ATP and pediatric NCEP classifications for lipids are available on the [facility] Yella Rewardset at: [email or web address] Select: Lab Policies and Procedures Select: Reference Ranges - Lipids 05/19/2006 1:00 PM SECURITY POLICE Roderick Vega CHEMISTRY ORDERABLES Edited Performing Organization Address City/[facility] Co de Phone Number INTERFACE SYSTEM Refer to clinic/hospital department * TSH (05/19/2006 1:00 PM SECURITY POLICE) TSH 1.93 0.27 - 4.20 uU/mL INTERFACE SYSTEM 05/19/2006 1:00 PM SECURITY POLICE us [employer]ry Vega CHEMISTRY ORDERABLES Edited Performing Organization Address City/[facility] Co de Phone Number INTERFACE SYSTEM Refer to clinic/hospital department documented in this encounter Visit Diagnoses Diagnosis Other chest pain- Primary documented in this encounter
--- OUTSIDE RECORDS SUMMARY | 2024-12-15 07:45 | XMS_ITS | Encounter Summary ---
Author Organization [facility] Address [address] [place] [address] Care Team Providers Care Claims Counsel Name Role Phone Unavailable Primary Care Provider Unavailabl e Encounter Details Date Type Department Care Team (Late st Contact Info) Description 05/19/2006 Outpatient Historical [facility] ([facility]) [address] 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
--- OUTSIDE RECORDS SUMMARY | 2024-12-15 07:45 | XMS_ITS | Clinical Summary ---
Author Organization [facility] Address [address] [place] [address] Care Team Providers Care Padded Box Sewer Name Role Phone Juve Torres MD Primary Care Provider [phone] [facility],non-owned Affiliates and Associated Physician Practices is amultiple site organization consisting of ambulatory clinics and hospital sitesin [place], [place], [place] and [place]. This disclosure is being madepursuant to the Care Everywhere program and may not contain all information available regarding this patient. 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 Gender Identity Not on file Sexual Orientation [...] 2:01 PM CDT Height 175.3 cm (5' 9) 09/13/2023 2:01 PM CDT Body Mass Index [...] years 1-dose series) 2015 AAA SCREENING 10/12/2020 DEPRESSION SCREENING 04/11/2024 COVID-19 VACCINE (2024- season) 2024 01/30/2023, 02/02/2021, 07/15/2020, Additional history exists INFLUENZA VACCINE (#1) 2024 12/21/2022 SCREENING FOR DIABETES 08/14/2026 , [...] - 115 mg/dL 08/15/2023 6:09 AM CDT [facility] Specimen Type Venous 08/15/2023 6:09 AM CDT [facility] Blood BLOOD SPECIMEN / Unknown 08/15/2023 6:09 AM CDT 08/15/2023 6:09 AM CDT us Toribio Gonzalez MD LAB - POINT OF CARE ORDER JENS Final Result [facility] [address] [place] [address], [facility] [phone] from Last 3 Months or Most Recently Relevant to Health Maintenance Insurance PAYOR GENERIC AETNA AETNA AETNA PAYOR GENERIC PAYOR GENERIC [address] [place] [address] Care Teams Padded Box Sewer Relationship Specialty Start Date End Date Juve Torres MD [address] [place] [address] PCP - General 04/13/18
--- OUTSIDE RECORDS SUMMARY | 2024-12-15 07:45 | XMS_ITS | Clinical Summary ---
Author Organization [facility] Address [address] 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
[2024-12-15 08:35] LABS: Hematocrit 55.8 % (42.0-52.0); Hemoglobin 18.0 g/dL (14.0-18.0); Mean Corpuscular HGB Conc 32.3 g/dl (32-36); Mean Corpuscular Hemoglobin 29.3 pg (26-34); Mean Corpuscular Volume 90.7 fl (80-100); Platelet Count Result 231 k/mm3 (150-375); Red Blood Count 6.15 M/mm3 (4.6-6.20); White Blood Count 8.0 K/mm3 (4.5-10.0)
[2024-12-15 08:57] LABS: Alanine Aminotransferase 70 U/L (6-50); Albumin Level 4.1 g/dL (3.5-5.1); Alkaline Phosphatase 112 U/L (38-126); Anion Gap 6 mmol/L (4-12); Aspartate Amino Transferase 68 U/L (17-59); Bilirubin,Total 0.7 mg/dL (0.2-1.3); Blood Urea Nitrogen 11 mg/dL (9-20); Calcium 8.9 mg/dL (8.4-10.2); Carbon Dioxide 28 mmol/L (22-30); Chloride 103 mmol/L (98-107); Cholesterol 131 mg/dL (0-200); Estimated Glomerular Filt Rate 58; Glucose 102 mg/dL (65-110); HDL Direct 35 mg/dL; Potassium 4.4 mmol/L (3.4-5.0); Sodium 137 mmol/L (137-145); Total Protein 8.2 g/dL (6.3-8.2); Triglycerides 79 mg/dL (<150)
[2024-12-15 09:14] LABS: Free T4 Free Thyroxine 1.00 ng/dL (0.78-2.19)
[2024-12-15 09:27] LABS: Thyroid Stimulating Hormone Reflex 2.050 uIU/mL (0.465-4.68)
[2024-12-15 09:31] LABS: Hemoglobin A1C 5.8 % (<5.7)
[2024-12-15 09:32] LABS: Prostate Specific Antigen 0.4 ng/mL (< OR = 4.0)
[2024-12-22 16:07] LABS: Free Testosterone (Direct) 22.4 pg/mL (6.6-18.1)
== END 2024-12-15 07:42 | disposition home or self-care (01) ==
LOC: ANHLAB 07:43
PROVIDERS: PCP Family Medicine; Visit Provider Nurse Practitioner Family
DX: E78.5 Hyperlipidemia, unspecified (principal); I10 Essential (primary) hypertension; E11.22 Type 2 diabetes mellitus with diabetic chronic kidney disease; Z13.29 Encounter for screening for other suspected endocrine disorder; E55.9 Vitamin D deficiency, unspecified; N52.9 Male erectile dysfunction, unspecified
CPT/HCPCS: 36415; 80053; 80061; 82306; 83036; 84153; 84402; 84403; 84439; 84443; 85027; G0103

== ENCOUNTER 2025-01-21 20:10 | Inpatient (IN) | payer OTHER, MEDICARE, SELFPAY ==
--- NOTE | ~2025-01-21 | CT_ITS ---
EXAMINATION: CT abdomen pelvis wo/w con DATE: 01/22/2025 02:46 INDICATION: Blood in stool. TECHNIQUE: Computed tomography (CT) of the abdomen and pelvis was performed without and with 100 mL Omnipaque 350 intravenous contrast. Automated exposure control and iterative reconstruction technique were employed. The dose-length product was 3045.23 mGy-cm. COMPARISON: CT abdomen and pelvis 09/29/2024 FINDINGS: The visualized portions of the lung bases demonstrate mild atelectasis. There is a trace right pleural effusion. The heart size is normal. There are coronary artery calcifications. No pericardial effusion. The liver, gallbladder, spleen, pancreas, and adrenal glands are normal. There are cysts in the kidneys measuring up to 4.0 cm on the left. There is no urolithiasis. There is a left inguinal hernia containing fat. There is diverticulosis of the colon without evidence of diverticulitis. There are changes of right hemicolectomy. There is mild periportal lymphadenopathy. There is no free intraperitoneal fluid. There is moderate lumbar spondylosis. There are bridging endplate osteophytes at multiple levels in the spine, consistent with diffuse idiopathic skeletal hyperostosis (DISH). IMPRESSION: 1. Mild periportal lymphadenopathy, likely reactive. 2. Left inguinal hernia containing fat. Reviewed, dictated and finalized at location E.
--- NOTE | ~2025-01-21 | US_ITS ---
EXAMINATION: US abdomen limited DATE: 01/23/2025 08:29 INDICATION: Abnormal liver function tests. TECHNIQUE: Multiple grayscale and Doppler ultrasound images of the abdomen were obtained. COMPARISON: CT abdomen and pelvis 01/22/2025 FINDINGS: The pancreas is obscured by bowel gas. The liver is normal without focal lesion. There is normal flow in main portal vein. The gallbladder is normal in size. No gallstones or gallbladder wall thickening. There is no sonographic Wyatt's sign. The common duct is normal and measures 6 mm. There is a 2.6 cm cyst in right kidney. IMPRESSION: 1. No etiology for abnormal liver function tests. Reviewed, dictated and finalized at location E.
--- OUTSIDE RECORDS SUMMARY | 2025-01-21 20:12 | XMS_ITS | Clinical Summary ---
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 Gender Identity Not on file Sexual Orientation Not on file Plan of Treatment Health Maintenance Due Date Last Done Comments Hepatitis C Virus (HCV) Screening 1955 TdaP Immunization 1955 Cologuard 10/12/2000 Immunochemical Fecal Occult Blood 10/12/2000 Pneumococcal Immunization (5 0+ years) (1 of 1 - PCV) 10/12/2005 Zoster Immunization (1 of 2) 10/12/2005 Influenza Immunization (#1) 2024 SARS-COV-2 Immunization (1 - season) 2024 Colonoscopy 07/23/2025 07/24/2015 Colorectal Cancer Screening 07/23/2025 Respiratory Syncytial Virus (RSV) Immunization (Adult) (1 - 1-dose 75+ series) 10/12/2030 Hepatitis B Immunization Aged Out No longer eligible based on patient's age to complete this topic Human Papillomavirus (HPV) Immunization Aged Out No longer eligible b ased on patient's age to complete this topic Meningococcal Immunization (ACWY) Aged Out No longer eligible based on patient's age to complete this topic Rotavirus Immunization Aged Out No lo nger eligible based on patient's age to complete this topic Procedures Procedure Name Priority Date/Time Associated Diagnosis Comments HM COLONOSCOPY Routine 07/24/2015 from Last 3 Months or Most Recently Relevant to Health Maintenance Results * HM COLONOSCOPY (07/24/2015) us Juve Torres MD PROCEDURE/MINOR SURGICAL ORD ERABLES Final Result from Last 3 Months or Most Recently Relevant to Health Maintenance Care Teams Social Media Manager Relationship Specialty Start Date End Date Juve Torres MD [address] [place] [id number] PCP - General Family Medicine 08/12/15 Nahid Mcgraw DO [address] [place], [place] [id number] Gastroenterology 08/12/15
--- OUTSIDE RECORDS SUMMARY | 2025-01-21 20:12 | XMS_ITS | Data Portability ---
Author Organization [facility], Main Office Address [address] [place] [address] Care Team Providers Care Marketing And Public Relations Manager Name Role Phone JAY CRUZ Primary Care Provider JAY CRUZ Referring Provider [phone] Assessment Encounter Date Assessment Date Assessment LastModified [...] as he is fairly significantly obese discussed. [email or web address] Not available 07/06/2022 15:56:18 08/31/2022 08/31/2022 The [...] DO Not Attach Compendium, Do Not Delete/merge, [id number] 5 15:12:39 injection/a spiration joint/bursa (PROC) - in office procedure, administere d by provider 2023 024 [email or web address] In-Office Order, Internal Use Only DO Not Attach Compendium DO Not Attach Compendium, Do Not Delete/merge, 4 15:54:41 injection/a spiration joint/bursa (PROC) 2022 023 [email or web address] In-Office Order, Internal Use Only DO Not Attach Compendium DO Not Attach Compendium, Do Not Delete/merge, 3 12:05:43 injection/a spiration joint/bursa (PROC) - in office procedure, administere d by provider 2022 023 In-Office Order, Internal Use Only DO Not Attach Compendium DO Not Attach Compendium, Do Not Delete/merge, 3 14:31:59 knee aspiration/ injection (PROC) 2022 023 [email or web address] In-Office Order, Internal Use Only DO Not Attach Compendium DO Not Attach Compendium, Do Not Delete/merge, 3 15:15:59 Surgeries None recorded. Imaging XR, knee 2024 025 [facility] [place], [address], [place], [address], 5 16:28:54 XR, knee 2023 024 [facility] [place], [address], [place], [address], 4 17:17:00 Medication Orders bupivacaine HCl 0.5 % (5 mg/mL) injection solution [address], [address] [place], [address], 5 15:14:31 Kenalog 10 mg/mL suspension for injection [address], [address] [place], [address], 5 15:14:31 meloxicam 15 mg tablet [address], [address] [place], [address], 5 16:14:59 Kenalog 10 mg/mL suspension for injection [address] [facility], [address] [place] [address], [id number], 4 17:17:00 Marcaine (PF) 0.5 % (5 mg/mL) injection solution [address] [facility]46, [address] [place] [address], [id number], 5 15:21:04 meloxicam 15 mg tablet [address] [facility]2716, [address] [place] [address], [id number], 4 17:17:00 bupivacaine HCl 0.5 % (5 mg/mL) injection solution [address] [facility]54, [address] [place] [address], [id number], 4 15:38:50 Kenalog 10 mg/mL suspension for injection 2022 023 [email or web address] [facility]95380, [address], [place], [id number], 4 15:39:48 Kenalog 10 mg/mL suspension for injection [email or web address] [facility]32, [address], [place], [id number], 4 15:39:48 ropivacaine (PF) 5 mg/mL (0.5 %) injection solution 2022 023 [email or web address]03580, [address], [place], [id number], 4 15:40:42 Euflexxa 10 mg/mL (mw 2.4-3.6 million) intra-artic ular syringe 2022 023 [email or web address] [facility]23722, [address], [place], [id number], 4 15:39:28 Patient TargetsNo targets recorded. Patient InstructionsNo instructions recorded. Reason for Referral None Reported. Results Created Date Observation Date Name Description Value Unit Range Abnormal Flag Note LastModifiedBy Organization Detail LastModifiedTime 06/11/19 23 XR, knee No observ ation record ed. [facility] [place] [address], [place], [address], 06/10/2022 16:08:20 07/19/19 24 XR, knee No observ ation record ed. [facility] [place] [address], [place], [address], 07/19/2023 16:24:53 08/04/19 25 XR, knee No observ ation record ed. [facility] [place] [address], [place], [address], 08/03/2024 16:28:53 Result Notes None recorded. Problems Name Problem SNOMED Code Status Onset Date Resolution Date Notes Provider Name and Address Organization Details Recorded Time Osborne's neuroma of right foot 8702471015078 08 Active 2020 Not Available [facility] 3 10:43:33 Pain in right foot 3737546976152 07 Active 2020 Not Available [facility] 3 10:43:33 Foot pain 03881245 Active 2021 Not Available [facility] 3 10:43:33 Metatarsal nakia 39836423 Active 2021 Not Available [facility] 3 10:43:33 Neuropathy due to type 2 diabetes mellitus 5166347232752 06 Active 2021 Not Available [facility] 3 10:43:33 Acquired right hallux rigidus 3517168085162 00 Active 2021 Not Available [facility] 3 10:43:33 Pain of right knee joint 4775848792155 00 Active 2022 Bety Carroll, ATC L null, [employer] 3 15:30:47 Osteoarthr itis of right knee joint 3527376827427 00 Active 2022 WAYLON Copeland [address] [facility], [place] [address], [place], [address] , [employer] 3 16:08:38 Problem Notes None recorded. Procedures Surgical History Date Name Laterality Status Provider Name and Address Organization Details Recorded Time 07/06/2022 Ortho - Visc completed Femi Corley MD [address] [facility], [facility] [address], [place], [address], [employer] 07/06/2022 15:52:51 Imaging Results None recorded. Procedure [...] 20 mg by injection route. 2024 active ND: 0003- 0494- 20 Not Available Not Available [...] administe red by the provider 07/18 completed [facility]: 0409- 4276- 17 Not Available Not Available Not Available Brilinta 90 mg tablet TAKE 1 TABLET BY MOUTH EVERY 12 HOURS 07/18 completed Not Available Not Available Not Available ropivacaine (PF) 5 mg/mL (0.5 %) injection solution in office 07/18 completed [facility] 33049 -064- 01 Not Available Not Available Not [...] Updated DateTime 07/06/2022 175.26 cm 45.8 kg/m2 976207.63 g Margy Caballero CNA [employer] 07/06/2022 15:14:10 Date Recorded Body height Body mass index (BMI) Body weight Provider Name and Address Organization Details Last Updated DateTime 07/19/2023 175.26 cm 25.8 kg/m2 55927.66 g Margy Caballero CNA [employer] 07/19/2023 15:37:05 Date Recorded Body height Body mass index (BMI) Body weight Provider Name and Address Organization Details Last Updated DateTime 08/03/2024 175.26 cm 25.8 kg/m2 45888.66 g Margy Caballero [employer] 08/03/2024 15:20:31 Date Recorded Body height Body mass index (BMI) Body weight Provider Name and Address Organization Details Last Updated DateTime 08/31/2022 175.26 cm 44.3 kg/m2 736597.71 g HEBER Rousseau [employer] 08/31/2022 14:28:51 Date Recorded Body height Body mass index (BMI) Body weight Provider Name and Address Organization Details Last Updated DateTime 02/25/2023 175.26 cm 27.3 kg/m2 58151.59 g Ann Marie Sung [facility] 02/25/2023 12:00:20 Social History Question Answer Notes LastModified by Organizat ion Details LastModified Time Tobacco Smoking Status Former Smoker Not Available [employer] 06/09/2022 10:41:33 When Did You Quit Smoking? 6-10yearssin cel[facility] tte [id number] Information not available 06/09/2022 What Was The Date Of Your Most Recent Tobacco Screening? 12/25/2020 [id number] Information not available 06/09/2022 Sex: Unknown Functional Status Question Answer Note LastModified by Organizat ion Details LastModified Time What is your level of alcohol consumption? Occasional [id number] Information not available 06/09/2022 Mental Status None recorded. Family History Relationship Description Onset Age of this Age Resolved Age Notes LastModified by Organization Details LastModified Time Unspecified Relation Hypertensive disorder [id number] Not available 06/09/2022 10:41:50 Mother Hypertensive disorder [email or web address] Not available 2023 15:41:05 Mother Diabetes mellitus [email or web address] Not available 2023 15:41:32 Unspecified Relation Heart disease [email or web address] Not available 05/2022 15:29:44 Sister Diabetes mellitus MULTIP LE SISTER S [email or web address] Not available 07/19/2023 15:41:32 Medical History Condition Response ARTHRITIS Y DIABETES, TYPE Y CORONARY ARTERY DISEASE (CAD) Y KIDNEY STONES Y Past Encounters Encounter ID Performer Location Encounter Start Date Encounter Closed Date Diagnosis/Indication Diagnosis SNOMED-CT Code Diagnosis ICD10 Code Diagnosis IMO Codes Diagnosis Note [id number] WAYLON Copeland [facility] [place] [address] [place] [address] 12/25/2020 00:00:00 12/25/2020 16:29:04 [id number] [facility] [place] [address] [place] [address] 01/22/2021 00:00:00 01/26/2021 23:11:16 [id number] Femi Corley MD [facility] [place] [address] [place] [address] 02/03/2021 00:00:00 02/03/2021 16:33:38 [id number] [facility] [place] [address] [place] [address] 02/26/2021 00:00:00 03/01/2021 19:24:15 [id number] [facility] [place] [address] [place] [address] 11/02/2021 00:00:00 11/03/2021 12:12:31 [id number] [facility] [place] [address] [place] [address] 11/30/2021 00:00:00 11/30/2021 11:04:45 [id number] WAYLON Copeland [facility] [place] [address] [place] [address] 06/10/2022 15:15:34 06/10/2022 15:59:29 Pain of right knee joint 6860833642 79743 M25.561 Osteoarthr itis of right knee joint 8125066291 32125 M17.11 [id number] Femi Corley MD [facility] [place] [address] [place] [address] 06/22/2022 15:36:07 06/22/2022 15:56:31 Pain of right knee joint 5248558194 56755 M25.561 Osteoarthr itis of right knee joint 1361300595 21758 M17.11 [id number] Femi Corley MD [facility] [place] [address] [place] [address] 06/29/2022 15:16:57 06/29/2022 15:51:39 Pain of right knee joint 1399542324 27323 M25.561 Osteoarthr itis of right knee joint 9336094470 25681 M17.11 [id number] Femi Corley MD [facility] [place] [address] [place] [address] 07/06/2022 15:11:28 07/06/2022 16:18:04 Osteoarthritis of right knee joint 0138502135 90154 M17.11 Pain of ri ght knee joint 8621712767 85290 M25.561 [id number] Femi Corley MD [facility] [place] [address] [place] [address] 08/31/2022 14:21:28 08/31/2022 15:08:17 Osteoarthritis of right knee joint 2411873495 79128 M17.11 Pain of ri ght knee joint 8792104813 10047 M25.342 [id number] Felice Zamorano MD [facility] [place] [address] [place] [address] 02/25/2023 11:56:53 02/25/2023 12:19:50 Osteoarthritis of right knee joint 1748437743 91109 M17.11 Pain of ri ght knee joint 6022651514 88324 M25.743 [id number] Rafael Hassan MD [facility] [place] [address] [place] [address] 07/19/2023 15:08:01 07/19/2023 16:35:13 Osteoarthritis of right knee joint 3184920876 92369 M17.11 Pain of ri ght knee joint 2243616479 62480 M25.485 [id number] Rafael Hassan MD [facility] [place] [address] [place] [address] 08/03/2024 15:05:33 08/03/2024 15:49:50 Osteoarthritis of right knee joint 9402506901 96926 M17.11 Pain of ri ght knee joint 1475425605 72794 M25.561 Health Concerns Section Related Observation LastModified by Organization Detai ls LastModified Time None Recorded Concern Status LastModified by Organization Details LastModified Time None Recorded Advance Directives Directive None Recorded Payers Insurance Date Sequence Insurance Name Policy Number Policy Valverde Covered Member ID Valverde Member ID Guarantor Name 08/03/2024 1 [facility] (POS II) Benigno Meredith Fidencio [id number] Benigno Nicolas Notes Date Note Type Note Provider Name and Address Organization Details Recorded Time 07/06/2022 text/html patient returns for Euflexxa injection number 2 right knee. He has moderately severe primary osteoarthritis particularly medial and patellofemoral compartments he is trying to avoid total knee arthroplasty. Today denies any erythema heat effusion or signs of infection. Femi Corley MD [address], [place], [address], [employer] 07/06/2022 15:56:41 08/31/2022 text/html Patient returns for [...] or signs of infection. WAYLON Copeland [address], [place], [address], [employer] 08/31/2022 15:07:17 02/25/2023 text/html Patient returns complaining of right knee pain. He has fairly severe osteoarthritis in the patellofemoral articulation the right knee which is essentially opja-oh-bcel has 1-2 mm remaining in the medial [...] will work on that. WAYLON Copeland [address], [place], [address], [employer] 02/25/2023 12:32:26 07/19/2023 text/html Patient returns complaining [...] today as well. WAYLON Copeland [address], [place], [address], [employer] 07/19/2023 16:25:19 08/03/2024 text/html The patient returns complaining of right knee pain. I have [...] today with the patient. WAYLON Copeland [address] [facility], [facility] [address], [place], [address], [facility] 08/03/2024 16:29:07
--- OUTSIDE RECORDS SUMMARY | 2025-01-21 20:12 | XMS_ITS | Encounter Summary ---
Author Organization [facility] Address [address] [place] [address] Care Team Providers Care Power Shear Operator Name Role Phone Unavailable Primary Care Provider Unavailabl e Encounter Details Date Type Department Care Team (Late st Contact Info) Description 05/19/2006 Outpatient Historical [facility] ([facility]) [address] 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
--- OUTSIDE RECORDS SUMMARY | 2025-01-21 20:12 | XMS_ITS | Clinical Summary ---
Author Organization [facility] Address [address] 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
--- OUTSIDE RECORDS SUMMARY | 2025-01-21 20:12 | XMS_ITS | Clinical Summary ---
Author Organization [facility] [employer] Address [address] [place] [address] Care Team Providers Care Cnc Programmer Name Role Phone Juve Torres MD Primary Care Provider [phone] Source Comments [facility] [employer],non-owned Affiliates and Associated Physician Practices is amultiple site organization consisting of ambulatory clinics and hospital sitesin [place], [place], [place] and [place]. This disclosure is being madepursuant to the Care Everywhere program and may not contain all information available regarding this patient. 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 Gender Identity Not on file Sexual [...] - 115 mg/dL 08/15/2023 6:09 AM CDT [facility] Specimen Type Venous 08/15/2023 6:09 AM CDT [facility] Blood BLOOD SPECIMEN / Unknown 08/15/2023 6:09 AM CDT 08/15/2023 6:09 AM CDT us Toribio Gonzalez MD LAB - POINT OF CARE ORDER JENS Final Result [facility] [address] [place] [address], [facility] [phone] from Last 3 Months or Most Recently Relevant to Health Maintenance Insurance PAYOR GENERIC AETNA AETNA AETNA PAYOR GENERIC PAYOR GENERIC [address] [place] [address] Care Teams Cnc Programmer Relationship Specialty Start Date End Date Juve Torres MD [address] [place] [address] PCP - General 04/13/18
--- OUTSIDE RECORDS SUMMARY | 2025-01-21 20:12 | XMS_ITS | Encounter Summary ---
Author Organization [facility] Address 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 Gender Identity Not on file Sexual Orientation Not on file documented as of this encounter Plan of Treatment Not on file documented as of this encounter Procedures Procedure Name Priority Date/Time Associated Diagnosis Comments TSH Routine 05/19/2006 1:00 PM ASSOCIATE CURATOR LIPID PANEL Routine 05/19/2006 1:00 PM ASSOCIATE CURATOR documented in this encounter Results * (ABNORMAL) LIPID PANEL (05/19/2006 1:00 PM ASSOCIATE CURATOR) CHOLESTEROL 201(H) 100 - 199 mg/dL INTERFACE SYSTEM TRIGLYCERIDE 111 10 - 149 mg/dL INTERFACE SYSTEM HDL 48 40 - 59 mg/dL INTERFACE SYSTEM CHOL/HDL RATIO 4.2 2.0 - 5.0 INTER FACE SYSTEM LDL CALCULATED 131(H) <=99 mg/dL INTERFACE SYSTEM LIPID PANEL COMMENT See Below INTERFACE SYSTEM Comment: The adult ATP and pediatric NCEP classifications for lipids are available on the [facility] at: http://[employer]-intranet/sellpoints/sjmmclab.[facility] Select: Lab Policies and Procedures Select: Reference Ranges - Lipids 05/19/2006 1:00 PM ASSOCIATE CURATOR Roderick Vega CHEMISTRY ORDERABLES Edited Performing Organization Address City/[facility] Co de Phone Number INTERFACE SYSTEM Refer to clinic/hospital department * TSH (05/19/2006 1:00 PM ASSOCIATE CURATOR) TSH 1.93 0.27 - 4.20 uU/mL INTERFACE SYSTEM 05/19/2006 1:00 PM ASSOCIATE CURATOR us [employer] Vega CHEMISTRY ORDERABLES Edited Performing Organization Address City/[facility] Co de Phone Number INTERFACE SYSTEM Refer to clinic/hospital department documented in this encounter Visit Diagnoses Diagnosis Other chest pain- Primary documented in this encounter
[2025-01-21 20:20] VITALS: BP 120/76; PULSE 96; RESP 20; TEMP 36.9; O2SAT 98
[2025-01-21 23:53] VITALS: BP 100/49; PULSE 94; RESP 16; O2SAT 98
[2025-01-21 23:54] VITALS: PULSE 94; RESP 12; O2SAT 97
[2025-01-22] VITALS (43 sets, daily range): BP systolic 104–148; BP diastolic 44–93; PULSE 72–103; RESP 10–21; TEMP 36.2–36.6; O2SAT 92–100; BMI 41.0
[2025-01-22 01:09] LABS: Hematocrit 52.2 % (42.0-52.0); Hemoglobin 17.3 g/dL (14.0-18.0); Immature Granulocyte Percent A 0.3 % (0-0.5); Lymphocytes Absolute Auto 3.00 K/mm3 (0.9-3.2); Mean Corpuscular HGB Conc 33.1 g/dl (32-36); Mean Corpuscular Hemoglobin 29.6 pg (26-34); Mean Corpuscular Volume 89.2 fl (80-100); Nucleated Red Blood Cells Absolute Auto 0.000 K/mm3 (0.0-0.012); Nucleated Red Blood Cells Perc 0.0 % (0.0-0.2); Platelet Count Result 251 k/mm3 (150-375); Red Blood Count 5.85 M/mm3 (4.6-6.20); White Blood Count 9.5 K/mm3 (4.5-10.0)
[2025-01-22 02:16] LABS: Alanine Aminotransferase 60 U/L (6-50); Albumin Level 4.0 g/dL (3.5-5.1); Alkaline Phosphatase 103 U/L (38-126); Anion Gap 8 mmol/L (4-12); Aspartate Amino Transferase 60 U/L (17-59); Bilirubin,Total 0.7 mg/dL (0.2-1.3); Blood Urea Nitrogen 22 mg/dL (9-20); Calcium 8.6 mg/dL (8.4-10.2); Carbon Dioxide 27 mmol/L (22-30); Chloride 103 mmol/L (98-107); Estimated CRCL calculation 56 ml/min; Estimated Glomerular Filt Rate 48; Glucose 127 mg/dL (65-110); Potassium 4.3 mmol/L (3.4-5.0); Sodium 138 mmol/L (137-145); Total Protein 8.1 g/dL (6.3-8.2)
[2025-01-22 02:59] LABS: INR 1.1; Partial Thromboplastin Time 32.4 Seconds (22.3-36.8); Prothrombin Time 14.2 Seconds (11.1-14.7)
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
[2025-01-22 07:24] LABS: Hematocrit 51.4 % (42.0-52.0); Hemoglobin 16.5 g/dL (14.0-18.0)
[2025-01-22] MEDS: LACTATED RINGERS 1,000 ML 125 ML IV CONT ×2 (07:24→17:46)
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
[2025-01-22 11:59] LABS: Hematocrit 52.4 % (42.0-52.0); Hemoglobin 16.8 g/dL (14.0-18.0)
--- NOTE | 2025-01-22 13:02 | PC.NURSE ---
this RN called Dr. Asher at 1106 and asked if the pt could have a diet order or if he had to remain NPO. provider gave a verbal order for a regular diet
--- NOTE | 2025-01-22 13:26 | ADMGEN ---
This patient, Benigno Nicolas, was admitted to [facility]. Patient/family oriented to hospital policies and general routines including ID bracelet, bed and alarms, visiting hours, pain management, procedures, bathroom and other care routines, personal items, smoking policy, room service/diet, and visiting hours. Information on how to activate the Rapid Response Team has been discussed. Patient/Family are encouraged to report perceived risks to care and to ask questions if they do not understand what they are told or what they should do.
--- NOTE | 2025-01-22 13:27 | ADMGEN ---
This patient, Benigno Nicolas, was admitted 3MS 323-2. Patient/family oriented to hospital policies and general routines including ID bracelet, bed and alarms, visiting hours, pain management, procedures, bathroom and other care routines, personal items, smoking policy, room service/diet, and visiting hours. Information on how to activate the Rapid Response Team has been discussed. Patient/Family are encouraged to report perceived risks to care and to ask questions if they do not understand what they are told or what they should do.
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
[2025-01-22] MEDS: ROSUVASTATIN 5 MG TABLET BY MOUTH (16:04)
[2025-01-22] MEDS: BISACODYL 5 MG TABLET EC 20 MG PO (17:45)
[2025-01-22 18:09] LABS: Hematocrit 48.3 % (42.0-52.0); Hemoglobin 15.6 g/dL (14.0-18.0)
[2025-01-23] VITALS (11 sets, daily range): BP systolic 89–135; BP diastolic 57–75; PULSE 81–92; RESP 12–21; TEMP 36–36.4; O2SAT 95–100
[2025-01-23 00:34] LABS: Hematocrit 46.8 % (42.0-52.0); Hemoglobin 15.2 g/dL (14.0-18.0)
[2025-01-23] MEDS: MAGNESIUM CITRATE 300 ML BTL PO ×2 (01:13→09:04)
[2025-01-23] MEDS: LACTATED RINGERS 1,000 ML 125 ML IV CONT ×2 (01:14→10:40)
[2025-01-23 06:30] LABS: Hematocrit 47.0 % (42.0-52.0); Hemoglobin 15.0 g/dL (14.0-18.0); Immature Granulocyte Percent A 0.5 % (0-0.5); Lymphocytes Absolute Auto 2.67 K/mm3 (0.9-3.2); Mean Corpuscular HGB Conc 31.9 g/dl (32-36); Mean Corpuscular Hemoglobin 29.0 pg (26-34); Mean Corpuscular Volume 90.9 fl (80-100); Nucleated Red Blood Cells Absolute Auto 0.000 K/mm3 (0.0-0.012); Nucleated Red Blood Cells Perc 0.0 % (0.0-0.2); Platelet Count Result 224 k/mm3 (150-375); Red Blood Count 5.17 M/mm3 (4.6-6.20); White Blood Count 8.6 K/mm3 (4.5-10.0)
[2025-01-23 06:54] LABS: Alanine Aminotransferase 54 U/L (6-50); Albumin Level 3.5 g/dL (3.5-5.1); Alkaline Phosphatase 92 U/L (38-126); Anion Gap 4 mmol/L (4-12); Aspartate Amino Transferase 71 U/L (17-59); Bilirubin,Total 0.7 mg/dL (0.2-1.3); Blood Urea Nitrogen 16 mg/dL (9-20); Calcium 8.1 mg/dL (8.4-10.2); Carbon Dioxide 30 mmol/L (22-30); Chloride 99 mmol/L (98-107); Estimated CRCL calculation 68 ml/min; Estimated Glomerular Filt Rate 60; Glucose 102 mg/dL (65-110); Magnesium 2.5 mg/dL (1.6-2.3); Potassium 4.1 mmol/L (3.4-5.0); Sodium 133 mmol/L (137-145); Total Protein 6.8 g/dL (6.3-8.2)
[2025-01-23] MEDS: PANTOPRAZOLE 40 MG TABLET PO (08:27)
[2025-01-23] MEDS: ROSUVASTATIN 5 MG TABLET BY MOUTH (08:27)
[2025-01-23 09:22] LABS: Hepatitis B Surface Antigen Negative (Negative)
[2025-01-23 09:28] LABS: HAV RESULT Negative (Negative); Hepatitis B Core IgM Result Negative (Negative)
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
--- NOTE | 2025-01-23 12:18 | PM.IMPN ---
Progress Note: A&P Assessment and Plan (1) GI bleed: Qualifiers: GI bleed type/associated pathology: unspecified gastrointestinal hemorrhage type Qualified Code(s): K92.2 - Gastrointestinal hemorrhage, unspecified Code(s): K92.2 - Gastrointestinal hemorrhage, unspecified Status: Acute Plan Gi bleed presented with blood per rectum Continue PPI and awaiting GI eval gentle rehydration monitor Fro EGD and Colonoscopy Gi consulted Elevated Liver enzymes AST/ALT 60/60, 71/54 today Hepatitis panel negative and US Liver unremarkable monitor DM2 SSI with accucheks and adjust with clinical course CAD Hold Antiplatelets DVT prophylaxis on SCDs, no AC due to GI bleed Subjective Date/time seen: 01/23/25 12:18 Interval history: Comfortable at bedside and awaiting EGD and Colonoscopy today Review of Systems Review of Systems: ALl other systems were reviewed and negative except as noted in the HPI above Exam Narrative: General: alert and comfortable Eyes: EOMI, PERRLA ENNT External ears normal, Neck is supple, no masses, Respiratory systems: Clear to auscultation Cardiovascular S1, S2, normal rhythm, no murmur, rub, or gallop; no thrill or palpable murmurs on palpation. Gastrointestinal: soft, non-tender, and non-distended abdomen with no masses; BS present Skin: no rash, lesions, ulcerations, subcutaneous nodules or induration Musculoskeletal: no abnormality and no tenderness, normal ROM Neurologic: Alert and oriented x3, non focal Mental Status Exam: normal affect Objective Data Vital Signs Vital Signs: Vital Signs - 24 hr 01/22/25 13:02 01/22/25 13:45 01/22/25 14:36 Temperature 97.2 F L Pulse Rate 72 78 Respiratory Rate 15 18 Blood Pressure 121/66 120/66 Pulse Oximetry 99 99 Oxygen Delivery Room Air Fraction of Inspired Oxygen 01/22/25 18:17 01/22/25 19:57 01/22/25 20:00 Temperature 97.7 F Pulse Rate 78 77 86 Respiratory Rate 18 Blood Pressure 125/70 Pulse Oximetry 97 Oxygen Delivery Fraction of Inspired Oxygen 01/22/25 20:10 01/22/25 20:33 01/22/25 21:35 Temperature Pulse Rate 88 Respiratory Rate 20 Blood Pressure Pulse Oximetry 95 95 Oxygen Delivery Room Air Room Air Autopap Fraction of Inspired Oxygen 21 01/22/25 23:53 01/23/25 00:00 01/23/25 04:00 Temperature Pulse Rate 81 82 Respiratory Rate Blood Pressure Pulse Oximetry 95 Oxygen Delivery Autopap Fraction of Inspired Oxygen 01/23/25 04:18 01/23/25 05:18 01/23/25 08:00 Temperature 97.0 F L Pulse Rate 91 Respiratory Rate 18 Blood Pressure 128/75 Pulse Oximetry 95 98 Oxygen Delivery Autopap Room Air Fraction of Inspired Oxygen 01/23/25 08:00 Temperature Pulse Rate 88 Respiratory Rate Blood Pressure Pulse Oximetry Oxygen Delivery Fraction of Inspired Oxygen Intake/Output Intake/Output: Intake & Output 01/20/25 01/21/25 01/22/25 01/23/25 23:59 23:59 23:59 23:59 Intake Total 1240 1933.3 Balance 1240 1933.3 Meds/Results Medications: Active Medications Generic Name Dose Route Start Last Admin Trade Name Freq PRN Reason Stop Dose Admin Hydrocortisone Acetate 25 mg 01/22/25 21:00 01/22/25 20:15 Hydrocortisone Acetate 25 Mg Suppository RECTAL 25 mg HS MEGAN Administration Lactated Ringer's 1,000 mls @ 125 mls/hr 01/22/25 06:00 01/23/25 10:40 Lr - Lactated Ringers Iv IV CONT 125 mls/hr .Q8H MEGAN Administration Pantoprazole Sodium 40 mg 01/23/25 09:00 01/23/25 08:27 Pantoprazole 40 Mg Tablet PO 40 mg QAM MEGAN Administration Rosuvastatin Calcium 5 mg 01/22/25 15:10 01/23/25 08:27 Rosuvastatin 5 Mg Tablet BY MOUTH 5 mg DAILY MEGAN Administration Radiology Results: ITS Impressions Abdomen/Pelvis CT 01/22/25 06:45 IMPRESSION: 1. Mild periportal lymphadenopathy, likely reactive. 2. Left inguinal hernia containing fat. Abdomen Ultrasound 01/23/25 08:31 IMPRESSION: 1. No etiology for abnormal liver function tests. Labs Labs: Laboratory Results - last 24 hr 01/22/25 01/23/25 01/23/25 17:52 00:17 05:54 WBC 8.6 RBC 5.17 Hgb 15.6 15.2 15.0 Hct 48.3 46.8 47.0 MCV 90.9 MCH 29.0 MCHC 31.9 L RDW 14.8 H Plt Count 224 MPV 8.7 Immature Gran % (Auto) 0.5 Neut % (Auto) 54.7 Lymph % (Auto) 30.9 [place] % (Auto) 8.6 H Eos % (Auto) 4.7 H Baso % (Auto) 0.6 Lymph # (Auto) 2.67 [place] # (Auto) 0.7 H Eos # (Auto) 0.4 H Baso # (Auto) 0.1 Abs Immat Gran (auto) 0.04 H Absolute Neuts (auto) 4.7 Absolute Nucleated RBC 0.000 Nucleated RBC % 0.0 Sodium 133 L Potassium 4.1 Chloride 99 Carbon Dioxide 30 Anion Gap 4 BUN 16 Creatinine 1.20 Estim Creat Clear Calc 68 Estimated GFR 60 Glucose 102 Calcium 8.1 L Magnesium 2.5 H Total Bilirubin 0.7 AST 71 H ALT 54 H Alkaline Phosphatase 92 Total Protein 6.8 Albumin 3.5 Hepatitis A IgM Ab Negative Hep Bs Antigen Negative Hep B Core IgM Ab Negative Hepatitis C Ab Screen Negative
[2025-01-23] MEDS: LACTATED RINGERS 1,000 ML 150 ML IV CONT (13:00)
--- NOTE | 2025-01-23 13:14 | SUR.OPER ---
EGD: [id number] Colon:[id number]
--- NOTE | 2025-01-23 16:01 | PM.DS ---
DS: Admitting Diagnosis Discharge Date 01/23/25 Admitting Diagnosis blood per rectum DS: Discharge Diagnosis Discharge Diagnosis (1) GI bleed: Qualifiers: GI bleed type/associated pathology: unspecified gastrointestinal hemorrhage type Qualified Code(s): K92.2 - Gastrointestinal hemorrhage, unspecified Code(s): K92.2 - Gastrointestinal hemorrhage, unspecified Status: Acute DS: Summary Hospital Course Hospital Course: 69 yo male with PMH of DM2 and CAD who presented to with blood per rectum. reported he started on having symptoms yesterday with bowel movement noted about 7 episodes of blood clots and bright red blood. otherwise denies any chest pain, abd pain, SOB, vomiting, lightheadedness and dysuria ER eval vital signs stable and wnl, labs notable for AST/ALT 60/60 CT AP no acute changes except mild periportal lymphadenopathy GI was consulted adn patient underwent EGD and Colonoscopy today and no no bleeding source identified and GI deemed it must have a bled diverticulosis. Patient discharged to follow up with GI as instrucetd Topical management Gi bleed presented with blood per rectum Continue PPI and awaiting GI eval S/p EGD and Colonoscopy no bleeding source and likely from a bled diverticulosis Gi consulted Elevated Liver enzymes AST/ALT 60/60, 71/54 today Hepatitis panel negative and US Liver unremarkable monitor DM2 SSI with accucheks and adjust with clinical course CAD restart Antiplatelets F/u wtih PCP in 3-5 days and follow up with Gi as instructed Time Spent with Patient Time attestation: Total time spent providing and/or coordinating discharge services: DS: Data Data Completed and Pending Labs on day of discharge: Labs from last 24 hours 01/23/25 01/23/25 01/23/25 12:32 05:54 00:17 WBC 8.6 RBC 5.17 Hgb 15.0 15.2 Hct 47.0 46.8 MCV 90.9 MCH 29.0 MCHC 31.9 L RDW 14.8 H Plt Count 224 MPV 8.7 Immature Gran % (Auto) 0.5 Neut % (Auto) 54.7 Lymph % (Auto) 30.9 [place] % (Auto) 8.6 H Eos % (Auto) 4.7 H Baso % (Auto) 0.6 Lymph # (Auto) 2.67 [place] # (Auto) 0.7 H Eos # (Auto) 0.4 H Baso # (Auto) 0.1 Abs Immat Gran (auto) 0.04 H Absolute Neuts (auto) 4.7 Absolute Nucleated RBC 0.000 Nucleated RBC % 0.0 Sodium 133 L Potassium 4.1 Chloride 99 Carbon Dioxide 30 Anion Gap 4 BUN 16 Creatinine 1.20 Estim Creat Clear Calc 68 Estimated GFR 60 Glucose 102 POC Capillary Glucose 99 Calcium 8.1 L Magnesium 2.5 H Total Bilirubin 0.7 AST 71 H ALT 54 H Alkaline Phosphatase 92 Total Protein 6.8 Albumin 3.5 Hepatitis A IgM Ab Negative Hep Bs Antigen Negative Hep B Core IgM Ab Negative Hepatitis C Ab Screen Negative 01/22/25 17:52 WBC RBC Hgb 15.6 Hct 48.3 MCV MCH MCHC RDW Plt Count MPV Immature Gran % (Auto) Neut % (Auto) Lymph % (Auto) [place] % (Auto) Eos % (Auto) Baso % (Auto) Lymph # (Auto) [place] # (Auto) Eos # (Auto) Baso # (Auto) Abs Immat Gran (auto) Absolute Neuts (auto) Absolute Nucleated RBC Nucleated RBC % Sodium Potassium Chloride Carbon Dioxide Anion Gap BUN Creatinine Estim Creat Clear Calc Estimated GFR Glucose POC Capillary Glucose Calcium Magnesium Total Bilirubin AST ALT Alkaline Phosphatase Total Protein Albumin Hepatitis A IgM Ab Hep Bs Antigen Hep B Core IgM Ab Hepatitis C Ab Screen Discharge Plan Discharge Attending physician on discharge: Virginia Scott Consulting providers: Cristian Asher Discharging Clinician: Virginia Scott Anticipated Discharge Date/Time: 01/23/25 15:57 Patient Disposition: Home Activity: as tolerated Diet: as tolerated and heart healthy Patient Instructions: Antibiotic Form Patient Language: [place] Stand Alone Forms: General Discharge Information Follow-up/Referrals: Juve Torres MD [Primary Care Provider, Family Practice] Referral Note: F/u with PCP in 3-5 days Cristian Asher MD [Physician, Gastroenterology] Referral Note: F/u with Gi as instructed Discharge Medications: Continued amlodipine [Norvasc] 5 mg tablet 5 mg PO DAILY Centrum Silver Ultra Men's [phone] mcg tablet 1 tablet PO DAILY ascorbic acid (vitamin C) 100 mg tablet,chewable 100 mg PO DAILY ergocalciferol (vitamin D2) 1,250 mcg (50,000 unit) capsule 1,250 mcg PO WEEKLY sildenafil 100 mg tablet 100 mg PO Q24H PRN (Reason: sexual activity) testosterone cypionate 200 mg/mL oil 200 mg subcut .bi weekly aspirin [Children's Aspirin] 81 mg Tablet,Chewable 81 mg PO DAILY@0800 Qty: 100 0RF meloxicam 15 mg tablet 15 mg PO DAILY Jardiance 25 mg tablet 25 mg PO QAM Qty: 90 1RF Ozempic 2 mg/dose (8 mg/3 mL) pen injector 2 mg subcut WEEKLY 90 Days Qty: 9 3RF rosuvastatin 5 mg tablet See Rx Instructions .ROUTE .COMPLEX Qty: 90 2RF Dose Instruction: TAKE ONE TABLET BY MOUTH DAILY Rx Instructions: TAKE ONE TABLET BY MOUTH DAILY Date of admission: 01/22/25 05:58 Primary Care Provider: Juve Torres Admitting Provider: Nina Salguero Attending physician on admission: Nina Salguero Condition: Stable
== END 2025-01-23 16:35 | disposition home or self-care (01) | DRG 379 ==
LOC: ANHED 01-22 05:57 → ANHIMU 01-22 06:58 → ANH3MEDSUR 01-22 13:38
PROVIDERS: Internal Medicine Gastroenterology; Admitting Provider Internal Medicine; Emergency Provider Emergency Medicine; PCP Family Medicine; Visit Provider Internal Medicine
PROC: 0DJ08ZZ Inspection of Upper Intestinal Tract, Via Natural or Artificial Opening Endoscopic (ICD-10-PCS; CPT 45378; principal; 2025-01-23 14:00)
DX: K57.31 Diverticulosis of large intestine without perforation or abscess with bleeding (principal); I25.10 Atherosclerotic heart disease of native coronary artery without angina pectoris; I10 Essential (primary) hypertension; E11.9 Type 2 diabetes mellitus without complications; E78.5 Hyperlipidemia, unspecified; K59.03 Drug induced constipation; K31.84 Gastroparesis; R74.01 Elevation of levels of liver transaminase levels; I25.2 Old myocardial infarction; Z87.891 Personal history of nicotine dependence; Z79.82 Long term (current) use of aspirin
CPT/HCPCS: 36415; 74178; 76705; 80053; 80074; 82948; 83735; 85014; 85018; 85025; 85610; 85730; 86850; 86900; 86901; 94002; 99285; A9270; J2704; J7120; Q9967